=== PATIENT | male | born 1950 | race Caucasian/White ===

== ENCOUNTER 2019-12-18 10:04 | Inpatient (IN) | payer MEDICARE, OTHER, SELFPAY ==
[2019-12-18] VITALS (30 sets, daily range): BP systolic 64–127; BP diastolic 34–60; PULSE 73–119; RESP 12–24; TEMP 36–37.4; O2SAT 94–100; BMI 29.0
--- NOTE | ~2019-12-18 | CT_ITS ---
EXAMINATION: CT abdomen pelvis w con DATE: 12/18/2019 11:24 INDICATION: Gastrointestinal bleed. Leukocytosis. TECHNIQUE: Computed tomography (CT) of the abdomen and pelvis was performed with 100 mL Omnipaque-350 intravenous contrast. Automated exposure control and iterative reconstruction technique were employe d. The dose-length product was 502.28 mGy-cm. COMPARISON: 02/20/2019 FINDINGS: Linear discoid atelectasis/scarring at the lingula. Multiple pulmonary nodules clustered in the right middle lobe with distribution favoring an infectious/inflammatory etiology. There are few additional pulmonary nodules at the periphery of the bilateral lower lobes largest a 6 mm nodule in the left lo wer lobe. Heart size is normal. No pericardial or pleural effusion. Bilateral gynecomastia. There are few small calcifications in the liver and spleen consistent with old granulomatous disease. Signific ant interval decrease in size of a now 2.9 cm lesion in the spleen. Additional small region of more b andlike scarring at the cephalad aspect of the spleen the site of a prior cystic mass. Gallbladder, p ancreas, left adrenal gland and bilateral kidneys are normal. Unchanged 1.4 cm right adrenal nodule. Appendix is normal. Bladder is normal. Calcification within the otherwise unremarkable prostate. Ther e is wall thickening and mild inflammatory stranding along the proximal sigmoid colon. There are few scattered diverticula along the descending and sigmoid colon. No abscess or free intraperineal gas. N o pathologically enlarged abdominal or pelvic lymphadenopathy. Moderate to severe thoracolumbar spon dylosis. IMPRESSION: 1. Wall thickening and inflammatory stranding along the proximal sigmoid colon likely related to dive rticulitis. Differential would include focal colitis or malignancy would recommend colonoscopy for fu rther evaluation when clinically improved. 2. Decrease in size of a now 2.9 cm splenic lesion which based upon further imaging is most likely re lated to treated metastatic disease. Correlate with clinical history. 3. Multiple subcentimeter pulmonary nodules in the bilateral lower lungs which could be infectious, i nflammatory or metastatic in etiology. The prominent localized clustering of nodules in the right mid dle lobe would favor an infectious etiology. 4. Unchanged indeterminate 1.4 cm adrenal nodule statistically most likely to represent an adenoma al though differential would include metastatic disease. Reviewed, dictated and finalized at location A. IMPRESSION: 1. Wall thickening and inflammatory stranding along the proximal sigmoid colon likely related to diverticulitis. Differential would include focal colitis or m alignancy would recommend colonoscopy for further evaluation when clinically im proved. 2. Decrease in size of a now 2.9 cm splenic lesion which based upon further geovanni ging is most likely related to treated metastatic disease. Correlate with clini suma history. 3. Multiple subcentimeter pulmonary nodules in the bilateral lower lungs which could be infectious, inflammatory or metastatic in etiology. The prominent loca lized clustering of nodules in the right middle lobe would favor an infectious etiology. 4. Unchanged indeterminate 1.4 cm adrenal nodule statistically most likely to r epresent an adenoma although differential would include metastatic disease.
--- NOTE | 2019-12-18 10:08 | ED.GIBLEED ---
HPI - GI Bleed General Chief complaint: GI Bleed Stated complaint: black, tarry stools Time Seen by Provider: 12/18/19 10:07 History of Present Illness HPI Narrative: 69 yo male with h/o prostate cancer, non-Hodgkin's lymphoma, hypertension, GERD, and history of colon polyps and hemorrhoids c/o dizziness, weakness, and dark stools. About 5 days ago began passing 2 to 3 dark stools per day. He also reports 1 episode of hematemesis. For the past 2 days he has become progressively more weak, and today had asyncopal episode, falling back into the bed. Related Data Home Medications Medication Instructions Recorded Confirmed acyclovir 400 mg PO BID 12/18/19 12/18/19 amlodipine 5 mg PO DAILY 12/18/19 12/18/19 aspirin 81 mg PO DAILY 12/18/19 12/18/19 cholecalciferol (vitamin D3) 50 mcg PO DAILY 12/18/19 12/18/19 folic acid 1 mg PO DAILY 12/18/19 12/18/19 atorvastatin 20 mg PO DAILY 12/20/19 12/20/19 Allergies Allergy/AdvReac Type Severity Reaction Status Date / Time rosuvastatin Allergy Intermediate IRRITABLE Verified 12/19/19 15:52 simvastatin Allergy Intermediate IRRITABLE Verified 12/19/19 15:52 pravastatin Allergy Mild IRRITABLE Verified 12/19/19 15:52 Review of Systems Review of Systems: All systems reviewed & are unremarkable except as noted in HPI and below Constitutional: Constitutional: Denies fever(s) and Reports weakness Cardiovascular: Cardiovascular: Denies chest pain Respiratory: Respiratory: Denies dyspnea Gastrointestinal: Gastrointestinal: Denies abdominal pain, Reports constipation, Reports diarrhea, Reports nausea and Reports vomiting Genitourinary: Genitourinary: Denies hematuria Neurologic: Reports syncope and Reports weakness [facility] Past Medical History Medical History Colon polyps Essential hypertension Gastroesophageal reflux disease Hemorrhoids Hyperlipidemia Non-Hodgkin lymphoma (~05/2019) Prostate cancer (~2009) He received 38 treatments of external beam radiation. Surgical History Surgical History (Updated 12/18/19 @ 20:07 by Tameka Kate PA-C) No history of previous surgery Family History Family History Mother Congestive heart failure Sibling Malignant neoplasm of colon Sibling Malignant neoplasm of breast (female) Hodgkin lymphoma Sibling Malignant lung neoplasm Social History Social History Social History: The patient lives in [place] with his . He is retired from [employer]. He was in the [employer] for 2 years as a young man and previously got his care at the [facility]. He is now a patient of Dr. Kanu Garcia. He smoked 1/2 packs of cigarettes per day for about 40 years. He denies alcohol and drug abuse. He designates his , Ct, as his surrogate decision maker and he wishes to be a full code. Smoking packs per day: 1.5 Smoking cigarettes per day: 30.0 Years smoked: 40 Smoking pack-years: 60.00 Smoking status: Former smoker Tobacco type: cigarettes Second hand tobacco smoke exposure: No Alcohol intake: former Substance use: never Gender identity (if verbalized by the patient): Male Spiritual care concerns: No Exam Const: General: alert Orientation/consciousness: patient oriented x3 HENMT: Head: normal to inspection Resp: Effort & Inspection: normal respiratory effort Auscultation: clear to auscultation bilaterally Cardio: Rate: tachycardic Rhythm: regular rhythm GI: GI Palp: Yes Soft to palpation and No Tenderness to palpation present (GI) Skin: General skin exam: pallor Neuro: General: patient oriented x3, moves all extremities and CN's II-XI intact bilaterally Speech: normal speech Extrem: General: normal to inspection Psych: Mental Status: mental status grossly normal Course Vital Signs Vital signs: Vital Signs
[2019-12-18] MEDS: SODIUM CHLORIDE 0.9% IV 1,000 ML 999 ML IV CONT (10:27)
[2019-12-18 10:30] LABS: Basophils Absolute Auto 0.1 K/mm3 (0.0-0.1); Basophils Percent Auto 0.3 % (0.2-1.2); Eosinophils Percent Auto 0.2 % (0-4.4); Immature Granulocyte Absolute 0.78 K/mm3 (0.00-0.031); Immature Granulocyte Percent A 4.1 % (0-0.5); Lymphocytes Absolute Auto 1.67 K/mm3 (0.9-3.2); Lymphocytes Percent Auto 8.7 % (18.3-44.2); Mean Corpuscular HGB Conc 30.2 g/dl (32-36); Mean Corpuscular Hemoglobin 27.3 pg (26-34); Mean Corpuscular Volume 90.4 fl (80-100); Mean Platelet Volume 9.8 fl (7.4-10.4); Monocytes Absolute Auto 1.4 K/mm3 (0.1-0.6); Monocytes Percent Auto 7.5 % (2.6-8.5); Neutrophils Absolute Auto 15.2 K/mm3 (1.3-6.7); Neutrophils Percent Auto 79.2 % (45.5-73.1); Nucleated Red Blood Cells Absolute Auto 0.1 K/mm3 (0.0-0.012); Nucleated Red Blood Cells Perc 0.7 % (0.0-0.2); Platelet Count Result 421 k/mm3 (150-375); Red Blood Count 1.87 M/mm3 (4.6-6.20); Red Cell Distribution Width 16.3 % (11.5-14.5); White Blood Count 19.2 K/mm3 (4.5-10.0)
[2019-12-18] MEDS: PANTOPRAZOLE SODIUM IV 40 MG VIAL IV PUSH ×2 (10:31→21:18)
[2019-12-18 10:41] LABS: Alanine Aminotransferase 11 U/L (4-50); Albumin Level 3.3 g/dL (3.5-5.1); Alkaline Phosphatase 59 U/L (38-126); Aspartate Amino Transferase 19 U/L (17-59); Bilirubin,Total 0.3 mg/dL (0.2-1.3); Blood Urea Nitrogen 31 mg/dL (9-20); Calcium 8.4 mg/dL (8.4-10.2); Carbon Dioxide 25 mmol/L (22-30); Chloride 102 mmol/L (98-107); Estimated Glomerular Filt Rate > 60; Glucose 122 mg/dL (75-110); Potassium 3.8 mmol/L (3.4-5.0); Sodium 133 mmol/L (137-145)
[2019-12-18 10:44] LABS: Hematocrit 16.9 % (42.0-52.0); Hemoglobin 5.1 g/dL (14.0-18.0); INR 1.1; Prothrombin Time 13.9 Seconds (11.1-14.7)
[2019-12-18 10:45] LABS: Partial Thromboplastin Time 22.6 SECONDS (22.3-36.8)
[2019-12-18] MEDS: SODIUM CHLORIDE 0.9% IV 250 ML 30 ML IV CONT ×2 (12:35→20:14)
[2019-12-18] MEDS: TUBING, BLOOD PLUM PUMP TUBING 1 EACH XX ×3 (12:35→21:19)
--- NOTE | 2019-12-18 13:58 | ADMGEN ---
This patient, Michael Barrios, was admitted to IMU Room 201-01 on 12/18/2019 at 1358. Patient/family oriented to hospital policies and general routines including ID bracelet, bed and alarms, visiting hours, pain management, procedures, bathroom and other care routines, personal items, smoking policy, room service/diet, and visiting hours. Valuables list has been completed. Information on how to activate the Rapid Response Team has been discussed. Patient/Family are encouraged to report perceived risks to care and to ask questions if they do not understand what they are told or what they should do.
--- NOTE | 2019-12-18 16:00 | PM.IMHP ---
H&P: HPI History of Present Illness Chief complaint: Dizziness, weakness, dark stools. Narrative: Michael aBrrios is a 69-year-old male with history of prostate cancer status post radiation therapy in 2009, non-Hodgkin's lymphoma for which he completed chemotherapy in June 2019, hypertension, GERD, and history of colon polyps and hemorrhoids who presented to the emergency department earlier today for evaluation of dizziness, weakness, and dark stools. Approximately 5 days ago, he began passing formed, dark stools daily. The first day, he did have an upset stomach and reports having 1 episode of hematemesis. He has continued to have 2 to 3 dark stools per day, however has not had a bowel movement today. In fact, he thought he was constipated with reports of tenesmus, and did take Dulcolax x1 without help. For the past day and a half he has become progressively more weak, and tells me that when he got up early this morning to use the restroom that he felt extremely lightheaded/dizzy and he proceeded to have syncopal episode, falling back into the bed. He was really unable to get himself up this morning due to profound weakness and was brought in for evaluation. He was profoundly anemic with a hemoglobin of 5.1 and 16.9 respectively. He feels a bit better at the time my evaluation and is currently receiving his 2nd unit of blood. He does take a baby aspirin daily but denies NSAID use. He drinks 2 cups of coffee a day and maybe has 1 or 2 alcoholic beverages every couple of weeks. No recent change in stress. Interestingly, he has really not had symptoms of GERD or acid reflux. He did try some Mylanta 5 days ago when he was nauseated, but reports that it did not help. With further questioning, he did take omeprazole for approximately 6 months at the instruction of his oncologist will receiving chemotherapy. He stop taking that sometime within the last several weeks. He has a history of hemorrhoids and colon polyps, and in fact had a colonoscopy within the last several months done at [place]. At that time, he tells me that they saw ?a lot of scarring from previous diverticulitis.? Currently he denies chest pain, racing heart, and shortness of breath. No abdominal pain or nausea at this time. Review of Systems Review of Systems: Narrative: 12 systems were reviewed and are negative. He lost about 50 pounds since being diagnosed with non-Hodgkin lymphoma last fall, but weight is now stabilized. He denies fever, chills, and sweats. No cold or flu symptoms. He does occasionally have mild rhinorrhea. He denies shortness of breath and cough. No sick contacts or recent travel. Except as documented, all other systems were reviewed and are negative. [facility] Past Medical History Medical History (Updated 12/18/19 @ 20:01 by Tameka Kate PA-C) Colon polyps Essential hypertension Gastroesophageal reflux disease Hemorrhoids Hyperlipidemia Non-Hodgkin lymphoma (~05/2019) Prostate cancer (~2009) He received 38 treatments of external beam radiation. Surgical History Surgical History (Updated 12/18/19 @ 20:07 by Tameka Kate PA-C) No history of previous surgery Family History Family History Mother Congestive heart failure Sibling Malignant neoplasm of colon Sibling Malignant neoplasm of breast (female) Hodgkin lymphoma Sibling Malignant lung neoplasm Social History Social History (Updated 12/18/19 @ 19:59 by Tameka Kate PA-C) Social History: The patient lives in [place] with his . He is retired from [employer] He was in the [employer] for 2 years as a young man and previously got his care at the [facility]. He is now a patient of Dr. Kanu Garcia. He smoked 1/2 packs of cigarettes per day for about 40 years. He denies alcohol and drug abuse. He designates his , Ct, as his surrogate decision maker and he wishes to be a full code. Afshan
[2019-12-18 16:25] LABS: Hemoglobin 5.2 g/dL (14.0-18.0)
[2019-12-18 16:26] LABS: Hematocrit 16.4 % (42.0-52.0)
[2019-12-18] MEDS: LACTATED RINGERS 1,000 ML 125 ML IV CONT (23:08)
[2019-12-19] VITALS (19 sets, daily range): BP systolic 86–111; BP diastolic 40–64; PULSE 63–82; RESP 14–20; TEMP 35.7–37; O2SAT 96–100
[2019-12-19 00:04] LABS: Hematocrit 23.4 % (42.0-52.0); Hemoglobin 7.3 g/dL (14.0-18.0)
[2019-12-19] MEDS: SODIUM CHLORIDE 0.9% IV 250 ML 30 ML IV CONT (00:45)
[2019-12-19 05:16] LABS: Basophils Percent Auto 0.4 % (0.2-1.2); Eosinophils Absolute Auto 0.1 K/mm3 (0-0.3); Eosinophils Percent Auto 0.8 % (0-4.4); Hematocrit 26.4 % (42.0-52.0); Hemoglobin 8.5 g/dL (14.0-18.0); Immature Granulocyte Absolute 0.22 K/mm3 (0.00-0.031); Immature Granulocyte Percent A 2.1 % (0-0.5); Lymphocytes Percent Auto 8.7 % (18.3-44.2); Mean Corpuscular HGB Conc 32.2 g/dl (32-36); Mean Corpuscular Volume 86.8 fl (80-100); Mean Platelet Volume 9.7 fl (7.4-10.4); Monocytes Absolute Auto 0.9 K/mm3 (0.1-0.6); Monocytes Percent Auto 8.9 % (2.6-8.5); Neutrophils Absolute Auto 8.2 K/mm3 (1.3-6.7); Neutrophils Percent Auto 79.1 % (45.5-73.1); Nucleated Red Blood Cells Absolute Auto 0.1 K/mm3 (0.0-0.012); Nucleated Red Blood Cells Perc 0.6 % (0.0-0.2); Platelet Count Result 213 k/mm3 (150-375); Red Blood Count 3.04 M/mm3 (4.6-6.20); Red Cell Distribution Width 16.1 % (11.5-14.5); White Blood Count 10.4 K/mm3 (4.5-10.0)
[2019-12-19 05:25] LABS: Prothrombin Time 13.2 Seconds (11.1-14.7)
[2019-12-19 05:37] LABS: Alanine Aminotransferase 7 U/L (4-50); Albumin Level 2.7 g/dL (3.5-5.1); Alkaline Phosphatase 43 U/L (38-126); Aspartate Amino Transferase 14 U/L (17-59); Bilirubin,Total 0.5 mg/dL (0.2-1.3); Blood Urea Nitrogen 17 mg/dL (9-20); Carbon Dioxide 27 mmol/L (22-30); Chloride 107 mmol/L (98-107); Estimated CRCL calculation 63 ml/min; Estimated Glomerular Filt Rate > 60; Glucose 87 mg/dL (75-110); Magnesium 2.3 mg/dL (1.6-2.3); Potassium 4.5 mmol/L (3.4-5.0); Sodium 136 mmol/L (137-145)
[2019-12-19] MEDS: PANTOPRAZOLE SODIUM IV 40 MG VIAL IV PUSH ×2 (08:33→21:47)
[2019-12-19] MEDS: LACTATED RINGERS 1,000 ML 125 ML IV CONT ×2 (10:23→18:44)
[2019-12-19 12:04] LABS: Hematocrit 26.2 % (42.0-52.0); Hemoglobin 8.4 g/dL (14.0-18.0)
--- NOTE | 2019-12-19 15:09 | WPDANESEPPF ---
Anes - Initial Pre Proc Eval Date/Time: 12/19/19 15:09 Surgeon: Paulino Vasques MD Pre Op Diagnosis: Dizziness, weakness, dark stools. Patient Data Age: 69 Gender: M Height: 1.68 m Weight: 81.8 kg Last Vital Signs Temp 35.7 C L 12/19/19 12:00 Pulse 68 12/19/19 12:00 Resp 20 12/19/19 12:00 BP 105/61 12/19/19 12:00 Pulse Ox 100 12/19/19 12:00 Allergies Allergy/AdvReac Type Severity Reaction Status Date / Time rosuvastatin Allergy Intermediate IRRITABLE Verified 12/19/19 15:52 simvastatin Allergy Intermediate IRRITABLE Verified 12/19/19 15:52 pravastatin Allergy Mild IRRITABLE Verified 12/19/19 15:52 Home Medications Medication Instructions Recorded Confirmed Type acyclovir 400 mg PO BID 12/18/19 12/18/19 History amlodipine 5 mg PO DAILY 12/18/19 12/18/19 History aspirin 81 mg PO DAILY 12/18/19 12/18/19 History atorvastatin 40 mg PO DAILY 12/18/19 12/18/19 History cholecalciferol (vitamin D3) 50 mcg PO DAILY 12/18/19 12/18/19 History folic acid 1 mg PO DAILY 12/18/19 12/18/19 History Laboratory Tests 12/18/19 12/18/19 12/18/19 10:21 16:15 23:55 WBC RBC Hgb 5.2 g/dL L* g/dL 7.3 g/dL L g/dL (14.0-18.0) (14.0-18.0) Hct 16.4 % L* % 23.4 % L % (42.0-52.0) (42.0-52.0) MCV MCH MCHC RDW Plt Count MPV Immature Gran % (Auto) Neut % (Auto) Lymph % (Auto) [place] % (Auto) Eos % (Auto) Baso % (Auto) Lymph # (Auto) [place] # (Auto) Eos # (Auto) Baso # (Auto) Abs Immat Gran (auto) Absolute Neuts (auto) Absolute Nucleated RBC Nucleated RBC % PT INR APTT Sodium Potassium Chloride Carbon Dioxide BUN Creatinine Estim Creat Clear Calc Estimated GFR Glucose Calcium Magnesium Total Bilirubin AST ALT Alkaline Phosphatase Total Protein Albumin Blood Type O Positive Antibody Screen Negative Crossmatch See Detail 12/19/19 12/19/19 12/19/19 04:34 04:34 04:34 WBC 10.4 K/mm3 H K/mm3 (4.5-10.0) RBC 3.04 M/mm3 L M/mm3 (4.6-6.20) Hgb 8.5 g/dL L g/dL (14.0-18.0) Hct 26.4 % L % (42.0-52.0) MCV 86.8 fl fl (80-100) MCH 28.0 pg pg (26-34) MCHC 32.2 g/dl g/dl (32-36) RDW 16.1 % H % (11.5-14.5) Plt Count 213 k/mm3 k/mm3 (150-375) MPV 9.7 fl fl (7.4-10.4) Immature Gran % (Auto) 2.1 % H % (0-0.5) Neut % (Auto) 79.1 % H % (45.5-73.1) Lymph % (Auto) 8.7 % L % (18.3-44.2) [place] % (Auto) 8.9 % H % (2.6-8.5) Eos % (Auto) 0.8 % % (0-4.4) Baso % (Auto) 0.4 % % (0.2-1.2) Lymph # (Auto) 0.90 K/mm3 K/mm3 (0.9-3.2) [place] # (Auto) 0.9 K/mm3 H K/mm3 (0.1-0.6) Eos # (Auto) 0.1 K/mm3 K/mm3 (0-0.3) Baso # (Auto) 0.0 K/mm3 K/mm3 (0.0-0.1) Abs Immat Gran (auto) 0.22 K/mm3 H K/mm3 (0.00-0.031) Absolute Neuts (auto) 8.2 K/mm3 H K/mm3 (1.3-6.7) Absolute Nucleated RBC 0.1 K/mm3 H K/mm3 (0.0-0.012) Nucleated RBC % 0.6 % H % (0.0-0.2) PT 13.2 Seconds Seconds (11.1-14.7) INR 1.0 APTT 24.0 SECONDS SECONDS (22.3-36.8) Sodium 136 mmol/L L mmol/L (137-145) Potassium 4.5 mmol/L mmol/L (3.4-5.0) Chloride 107 mmol/L mmol/L (98-107) Carbon Dioxide 27 mmol/L mmol/L (22-30) BUN 17 mg/dL D mg/dL (9-20) Creatinine
--- NOTE | 2019-12-19 15:55 | PC.NURSE ---
Patient left floor to GI Lab at 1555 on 12/19/2019 for an EGD Procedure. Appropriate documentation sent with patient.
[2019-12-19] MEDS: LACTATED RINGERS 1,000 ML 150 ML IV CONT ×2 (16:02→16:13)
--- NOTE | 2019-12-19 16:08 | PC.NURSE ---
This patient, Michael Barrios, was transferred to [facility] on 12/19/19 at 1605. Personal belongings sent to room waiting while patient is in EGD Procedure. Report given to Justyna ASH. Appropriate documentation sent with patient.
--- NOTE | 2019-12-19 16:22 | PM.PROC ---
Procedure Note - Detailed Date of procedure: 12/19/19 Pre-op diagnosis: Dizziness, weakness, dark stools. GERD; acute blood loss anemia; hematemesis, melena. Post-op diagnosis: other (Normal EGD.) Procedure performed: EGD Anesthesia: MAC Surgeon: Partha Washington MD Estimated blood loss (mL): 0 Pathology: none sent Complications: No immediate complications Condition: stable Disposition: floor Findings: PARTHA WASHINGTON MD, FACG, FACP UPPER ENDOSCOPY 12-19-2019 INDICATION: Acute blood loss anemia, hematemesis, melena. GERD. POST-OP: Normal. SEDATION: Per anesthesia With the patient in the left lateral decubitus position, the [employer] upper endoscope was used to easily intubate the patient?s esophagus and advanced to the third portion of the duodenum to the extreme extent of the endoscope. Careful inspection of the mucosa was made upon insertion and withdrawal of the endoscope with retroflexion in the stomach. FINDINGS: Esophagus: SC Jx at 35 cm. Esophagus is normal. No varix, tear, esophagitis, stricture, mass or Majano?s. Stomach: Fundus, body and antrum normal. No ulceration, erosion, inflammation, AVM or malignancy. Duodenum: Normal in the bulb, second and third portion. No complications, blood loss or implants. No old or new blood. ASSESSMENT AND PLAN: A. GERD: stable on PPI; continue at BID for one month then daily. No esophagitis or Majano?s. B. Acute blood loss anemia, hematemesis, melena on aspirin: - Most likely related to Marci-Robbin tear that has healed - No active bleed - Follow H+H; transfuse prn - If further bleed consider Capsule endoscopy - Avoid aspirin, NSAIDS and anticoagulants for two weeks - Increase diet; hopefully home soon Partha Washington M.D. [phone]
--- NOTE | 2019-12-19 17:09 | CONS_ITS ---
DATE OF CONSULTATION: 12/19/2019 HISTORY OF PRESENT ILLNESS: A 69-year-old male with history of prostate cancer, status post radiation in 2009, non-Hodgkin's lymphoma, finishing chemo in June 2019, hypertension, hyperlipidemia, GERD, history of colon polyps, who presented yesterday with hematemesis for 5 days, associated with melena and lightheadedness. I am now asked to provide GI evaluation at the request of the hospitalist service for same symptoms. Primary care provider is Dr. Kanu Garcia. The patient has symptoms as above and otherwise denies abdominal pain, nausea, vomiting, heartburn, trouble swallowing, loss of appetite or weight, hematochezia, previous melena, fever, jaundice, scleral icterus, dark urine, light stools, itching, hot or cold intolerance, chest pain, shortness of breath at rest, hematuria, dysuria, new cough or visual changes, easy bruising, tingling of the skin, bone pain or tremors. No endocarditis risk factors. ALLERGIES: ROSUVASTATIN, SIMVASTATIN, AND PRAVASTATIN. MEDICATIONS: Include: 1. Baby aspirin. 2. No NSAIDs or anticoagulants. 3. Acyclovir. 4. Amlodipine. 5. Atorvastatin. 6. Vitamin D. 7. Folate. SOCIAL HISTORY: Nonsmoker. Nondrinker. FAMILY HISTORY: Brother with colon cancer. The patient had a colonoscopy a few months ago at [facility] with scarring and diverticular disease as well as colon polyps removed. I do not have the report or pathology for this. PHYSICAL EXAMINATION: GENERAL: Well-developed, well-nourished male lying in bed, in no apparent distress. He has no lower extremity edema, jaundice, spider angioma, palmar erythema. HEENT: Skull is normocephalic, atraumatic. Pupils nonicteric. Oropharynx clear. NECK: Supple without thyromegaly. LUNGS: Clear to auscultation. HEART: Rate and rhythm regular. S1, S2 normal. ABDOMEN: Normoactive bowel sounds. Soft, nontender, nonrigid, nondistended without hepatosplenomegaly or masses. RECTAL: Deferred. NEUROLOGIC: Conscious and alert x3. LABORATORY DATA: Today hemoglobin 9, hematocrit 26, white count of 10, MCV 87, T bilirubin 0.5, alkaline phosphatase 43, AST 14, ALT is 7. On December 17, hematocrit 16, white count 19. INR is 1.1. IMAGING PROCEDURE: CT scan of the abdomen and pelvis done December 17 shows sigmoid colon inflammatory stranding and wall thickening. 3 cm splenic lesion and pulmonary nodules. ASSESSMENT AND PLAN: 1. Gastroesophageal reflux disease. Continue PPI. 2. Acute blood loss anemia with melena. Certainly concern for upper GI source more than lower GI source of bleeding. No active bleeding at this time. We will follow H and H, transfuse as needed. Avoid aspirin, nonsteroidals and anticoagulants. Continue PPI. Perform upper endoscopy. 3. Abnormal imaging of the digestive tract. I do not believe, patient has any evidence of acute diverticulitis. This most likely represents underfilling and will take observational approach. We will leave further recommendations regarding splenic lesion and pulmonary nodules to others. 4. Personal history of colon polyps and family history of colon cancer. We will leave followup to Dr. Kanu Garcia as outpatient, as patient has had endoscopy at [facility]. 5. The procedure of upper endoscopy, its indications, alternatives of barium studies, and risks including perforation, bleeding, infection, reaction to medication as well as possible need for bladder surgery were reviewed with the patient. He voices understanding and agrees to proceed and provided informed consent. Thank you for allowing me to share in the care of this very nice patient. Further recommendations will follow endoscopy. AARON ARRIAGA M.D.
[2019-12-19 18:11] LABS: Hematocrit 28.3 % (42.0-52.0); Hemoglobin 9.1 g/dL (14.0-18.0)
--- NOTE | 2019-12-19 18:15 | PM.IMPN ---
Progress Note: A&P Assessment and Plan (1) Upper GI bleed: Code(s): K92.2 - Gastrointestinal hemorrhage, unspecified Status: Acute Assessment and Plan: With hematemesis x1 approximately 5 days ago and several days worth of dark stools. No vomiting or bowel movement today. He has been started on Protonix b.i.d. Dr. Washington consulted, input appreciated. 12/19/19 18:15 Patient is a 69-year-old male with history of prostate cancer non-Hodgkin lymphoma presented emergency department with a complaint being dizzy tired and black tarry stool upon arrival to emergency department patient hemoglobin was 5.1, he denies any abdominal pain nausea or vomiting or hematoma emesis he denies any fever or chills, patient was given 2 units of pack RBC today his hemoglobin is 8.3, patient had a CT scan of abdomen showed diverticulitis patient is started on Zosyn, patient was seen by GI and had a EGD today which was essentially normal without any source of bleeding plan is to monitor, GI suspect patient may have a small-bowel bleeding and may required capsule endoscopy, (2) Profound anemia: Code(s): D64.9 - Anemia, unspecified Status: Acute Assessment and Plan: Secondary to GI bleed. Will initially give him 3 units of packed red blood cells and repeat a hemoglobin and hematocrit thereafter. (3) Syncopal episodes: Code(s): R55 - Syncope and collapse Status: Acute Assessment and Plan: Likely secondary to orthostatic hypotension from hypovolemia due to blood loss. Will monitor on telemetry overnight to ensure no cardiac dysrhythmias. (4) Diverticulitis: Code(s): K57.92 - Diverticulitis of intestine, part unspecified, without perforation or abscess without bleeding Status: Acute Assessment and Plan: He did have tenderness to palpation left lower quadrant and given leukocytosis and CT findings, will empirically start him on Zosyn. (5) Essential hypertension: Code(s): I10 - Essential (primary) hypertension Status: Acute Assessment and Plan: Blood pressures were as low as 64/41 in the emergency department, but have improved with blood transfusion. Antihypertensives currently on hold. Subjective Date/time seen: 12/19/19 18:15 Patient is a 69-year-old male with history of prostate cancer non-Hodgkin lymphoma presented emergency department with a complaint being dizzy tired and black tarry stool upon arrival to emergency department patient hemoglobin was 5.1, he denies any abdominal pain nausea or vomiting or hematoma emesis he denies any fever or chills, patient was given 2 units of pack RBC today his hemoglobin is 8.3, patient had a CT scan of abdomen showed diverticulitis patient is started on Zosyn, patient was seen by GI and had a EGD today which was essentially normal without any source of bleeding plan is to monitor, GI suspect patient may have a small-bowel bleeding and may required capsule endoscopy, Review of Systems Review of Systems: All systems reviewed & are unremarkable except as noted in HPI and below Exam Const: General: comfortable and no acute distress HENMT: General nose exam: Normal nares present Mouth: Yes moist mucous membranes Eyes: General: appearance normal, both eyes and all related structures Sclera: sclerae normal Neck: Neck: supple Resp: Effort & Inspection: normal respiratory effort Auscultation: clear to auscultation bilaterally Cardio: Rate: regular rate Rhythm: regular rhythm GI: Auscultation: normal bowel sounds Other: Nontender Skin: General skin exam: normal color Neuro: Speech: normal speech Sensory Exam: normal sensation Extrem: General: no
[2019-12-19] MEDS: ACYCLOVIR 400 MG TABLET PO (18:42)
[2019-12-20 00:56] LABS: Hematocrit 23.9 % (42.0-52.0); Hemoglobin 7.6 g/dL (14.0-18.0)
[2019-12-20] MEDS: LACTATED RINGERS 1,000 ML 125 ML IV CONT (04:30)
[2019-12-20 05:40] VITALS: BP 118/58; PULSE 82; RESP 16; TEMP 36.1; O2SAT 96
[2019-12-20 06:09] LABS: Mean Corpuscular Hemoglobin 27.8 pg (26-34); Mean Corpuscular Volume 86.8 fl (80-100); Mean Platelet Volume 9.9 fl (7.4-10.4); Platelet Count Result 231 k/mm3 (150-375); Red Blood Count 2.88 M/mm3 (4.6-6.20); Red Cell Distribution Width 16.6 % (11.5-14.5); White Blood Count 7.5 K/mm3 (4.5-10.0)
[2019-12-20 06:33] LABS: Blood Urea Nitrogen 10 mg/dL (9-20); Calcium 8.3 mg/dL (8.4-10.2); Carbon Dioxide 28 mmol/L (22-30); Chloride 105 mmol/L (98-107); Estimated CRCL calculation 70 ml/min; Estimated Glomerular Filt Rate > 60; Glucose 82 mg/dL (75-110); Potassium 3.5 mmol/L (3.4-5.0); Sodium 135 mmol/L (137-145)
[2019-12-20] MEDS: ACYCLOVIR 400 MG TABLET PO (09:04)
[2019-12-20] MEDS: POTASSIUM CHLORIDE 20 MEQ TABLET 40 MEQ PO (09:04)
[2019-12-20] MEDS: AMLODIPINE BESYLATE 5 MG TABLET PO (09:05)
[2019-12-20] MEDS: FOLIC ACID 1 MG TABLET PO (09:05)
--- NOTE | 2019-12-20 10:19 | PC.NURSE ---
Patient refused Atorvastatin 40 mg po this a.m. and states he takes 20 mg po at home. Will discuss with Dr. Vasques. Patient also refused Vitamin D 2000 units, stating he takes 50 mcg daily at home. Will also discuss this with Dr. Vasques.
[2019-12-20] MEDS: PANTOPRAZOLE SODIUM IV 40 MG VIAL IV PUSH (10:38)
--- NOTE | 2019-12-20 11:11 | PM.DS ---
DS: Admitting Diagnosis Admitting Diagnosis Admitting Diagnosis: Gastrointestinal hemorrhage, unspecified DS: Discharge Diagnosis Discharge Diagnosis (1) Upper GI bleed: Code(s): K92.2 - Gastrointestinal hemorrhage, unspecified Status: Acute Assessment and Plan: With hematemesis x1 approximately 5 days ago and several days worth of dark stools. No vomiting or bowel movement today. He has been started on Protonix b.i.d. Dr. Washington consulted, input appreciated. 12/19/19 18:15 Patient is a 69-year-old male with history of prostate cancer non-Hodgkin lymphoma presented emergency department with a complaint being dizzy tired and black tarry stool upon arrival to emergency department patient hemoglobin was 5.1, he denies any abdominal pain nausea or vomiting or hematoma emesis he denies any fever or chills, patient was given 2 units of pack RBC today his hemoglobin is 8.3, patient had a CT scan of abdomen showed diverticulitis patient is started on Zosyn, patient was seen by GI and had a EGD today which was essentially normal without any source of bleeding plan is to monitor, GI suspect patient may have a small-bowel bleeding and may required capsule endoscopy, (2) Profound anemia: Code(s): D64.9 - Anemia, unspecified Status: Acute Assessment and Plan: Secondary to GI bleed. Will initially give him 3 units of packed red blood cells and repeat a hemoglobin and hematocrit thereafter. (3) Syncopal episodes: Code(s): R55 - Syncope and collapse Status: Acute Assessment and Plan: Likely secondary to orthostatic hypotension from hypovolemia due to blood loss. Will monitor on telemetry overnight to ensure no cardiac dysrhythmias. (4) Diverticulitis: Code(s): K57.92 - Diverticulitis of intestine, part unspecified, without perforation or abscess without bleeding Status: Acute Assessment and Plan: He did have tenderness to palpation left lower quadrant and given leukocytosis and CT findings, will empirically start him on Zosyn. (5) Essential hypertension: Code(s): I10 - Essential (primary) hypertension Status: Acute Assessment and Plan: Blood pressures were as low as 64/41 in the emergency department, but have improved with blood transfusion. Antihypertensives currently on hold. DS: Summary Hospital Course Reason for hospitalization: Michael Barrios is a 69-year-old male with history of prostate cancer status post radiation therapy in 2009, non-Hodgkin's lymphoma for which he completed chemotherapy in June 2019, hypertension, GERD, and history of colon polyps and hemorrhoids who presented to the emergency department earlier today for evaluation of dizziness, weakness, and dark stools. Approximately 5 days ago, he began passing formed, dark stools daily. The first day, he did have an upset stomach and reports having 1 episode of hematemesis. He has continued to have 2 to 3 dark stools per day, however has not had a bowel movement today. In fact, he thought he was constipated with reports of tenesmus, and did take Dulcolax x1 without help. For the past day and a half he has become progressively more weak, and tells me that when he got up early this morning to use the restroom that he felt extremely lightheaded/dizzy and he proceeded to have syncopal episode, falling back into the bed. He was really unable to get himself up this morning due to profound weakness and was brought in for evaluation. He was profoundly anemic with a hemoglobin of 5.1 and 16.9 respectively. He feels a bit better at the time my evaluation and is currently receiving his 2nd unit of blood. He does take a baby a
--- NOTE | 2019-12-20 11:50 | WPDANESPN ---
Anes - Prog Note Post-Op Date/Time: 12/20/19 11:50 Cardiovascular status: normal Respiratory status: normal Airway patency: baseline Mental status: baseline Post-Op hydration status: normal Vital Signs: Last Vital Signs Temp 36.1 C L 12/20/19 05:40 Pulse 82 12/20/19 05:40 Resp 16 12/20/19 05:40 BP 118/58 L 12/20/19 05:40 Pulse Ox 96 12/20/19 05:40 Pain Score (VAS): 0/10. Patient resting up to chair at time of assessment, patient appears comfortable. I/O: Intake & Output 12/19/19 12/20/19 12/20/19 23:59 07:59 15:59 Intake Total 2300 1100 120 Output Total 200 Balance 2100 1100 120 Laboratory Tests 12/20/19 04:49 12/20/19 04:49 12/19/19 12/19/19 12/20/19 11:52 18:06 00:14 WBC RBC Hgb 8.4 L 9.1 L 7.6 L Hct 26.2 L 28.3 L 23.9 L MCV MCH MCHC RDW Plt Count MPV Sodium Potassium Chloride Carbon Dioxide BUN Creatinine Estim Creat Clear Calc Estimated GFR Glucose Calcium 12/20/19 12/20/19 04:49 04:49 WBC 7.5 RBC 2.88 L Hgb 8.0 L Hct 25.0 L MCV 86.8 MCH 27.8 MCHC 32.0 RDW 16.6 H Plt Count 231 MPV 9.9 Sodium 135 L Potassium 3.5 Chloride 105 Carbon Dioxide 28 BUN 10 D Creatinine 0.80 Estim Creat Clear Calc 70 Estimated GFR > 60 Glucose 82 Calcium 8.3 L Post-procedural complaints: none Patient Feedback: Patient satisfied with anesthetic care.
== END 2019-12-20 12:40 | disposition home or self-care (01) | DRG 378 ==
LOC: ANHED 10:35 → ANHIMU 12:59 → ANH2MED 12-19 17:48
PROVIDERS: Internal Medicine Gastroenterology; Physician Assistant; Admitting Provider Family Medicine; Emergency Provider Emergency Medicine; PCP Internal Medicine; Visit Provider Family Medicine
PROC: 0DJ08ZZ Inspection of Upper Intestinal Tract, Via Natural or Artificial Opening Endoscopic (ICD-10-PCS; CPT 43235; principal; 2019-12-19 15:45)
DX: K92.2 Gastrointestinal hemorrhage, unspecified (principal); D62 Acute posthemorrhagic anemia; K57.32 Diverticulitis of large intestine without perforation or abscess without bleeding; K21.9 Gastro-esophageal reflux disease without esophagitis; I95.1 Orthostatic hypotension; I10 Essential (primary) hypertension; E78.5 Hyperlipidemia, unspecified; Z87.891 Personal history of nicotine dependence; Z85.46 Personal history of malignant neoplasm of prostate; Z85.72 Personal history of non-Hodgkin lymphomas
CPT/HCPCS: 36415; 36430; 74177; 80048; 80053; 83735; 85014; 85018; 85025; 85027; 85610; 85730; 86850; 86900; 86901; 86923; 96361; 96365; 96375; 99285; A9270; C9113; J2543; J2704; J7030; J7050; J7120; P9016; Q9967

== ENCOUNTER 2024-06-12 15:35 | Emergency (ER) | payer MEDICARE, SELFPAY ==
--- NOTE | ~2024-06-12 | XR_ITS ---
[id number] DATE: 06/12/2024 15:59 INDICATION: Anterior upper right rib pain after fall TECHNIQUE: PA chest. 3 views of the right ribs. COMPARISON: None FINDINGS: No displaced rib fracture is noted. Normal heart size. No hilar or mediastinal enlargement. No pulmonary infiltrate or consolidation, ple ural effusion or pulmonary vascular congestion or pneumothorax is detected. Degenerative spurring of the thoracic spine. IMPRESSION: No displaced rib fracture is evident No active cardiopulmonary disease Reviewed, dictated and finalized at [facility] Reviewed, dictated and finalized at [facility] [employer] [employer]
[2024-06-12 15:50] VITALS: BP 139/70; PULSE 77; RESP 16; TEMP 36.6; O2SAT 98
--- NOTE | 2024-06-12 16:22 | ED_ITS ---
HPI - General Adult General Chief complaint: Fall Stated complaint: Chest Pain Time Seen by Provider: 06/12/24 15:50 Source: patient Mode of arrival: ambulatory Limitations: no limitations History of Present Illness HPI narrative: 74-year-old male presents with complaint of pain to right anterior ribs. Patient states around 2:00 p.m. today he slipped and fell while went to rising his boat. Slipped and hit right side of chest against a boat deck. Did not hit his head. Was able to get up on his own. Patient ambulatory with steady gait. Patient went to [facility] [facility] and was told they did not have x-ray machine. No shortness of breath. All systems reviewed and negative except as noted above. Related Data Home Medications Medication Instructions Recorded Confirmed amlodipine 5 mg tablet 5 mg PO DAILY 12/18/19 06/12/24 cholecalciferol (vitamin D3) 50 50 mcg PO DAILY 12/18/19 06/12/24 mcg (2,000 unit) capsule folic acid 1 mg tablet 1 mg PO DAILY 12/18/19 06/12/24 atorvastatin 10 mg tablet 10 mg PO DAILY 05/07/24 06/12/24 diclofenac potassium 25 mg capsule 25 mg PO DAILY 05/07/24 06/12/24 ferrous sulfate 324 mg (65 mg 324 mg PO DAILY 05/07/24 06/12/24 iron) tablet,delayed release hydroxychloroquine 200 mg tablet 200 mg PO DAILY 05/07/24 06/12/24 methotrexate sodium 2.5 mg tablet 15 mg PO WEEKLY 05/07/24 06/12/24 jpuuvizdhpch-ltwsxlun-kgjtub tablet 1 tablet PO DAILY 05/07/24 06/12/24 omeprazole 20 mg tablet,delayed 20 mg PO DAILY 05/07/24 06/12/24 release Allergies Allergy/AdvReac Type Severity Reaction Status Date / Time rosuvastatin Allergy Intermediate IRRITABLE Verified 06/12/24 15:42 simvastatin Allergy Intermediate IRRITABLE Verified 06/12/24 15:42 pravastatin Allergy Mild IRRITABLE Verified 06/12/24 15:42 Review of Systems Review of Systems: CONSTITUTIONAL: Denies fever, chills, or sweats. EYES: Denies visual changes, redness, or discharge. ENT: Denies rhinorrhea, congestion, sore throat, or otalgia. CARDIOVASCULAR: Denies chest pain, palpitations, or edema. RESPIRATORY: Denies cough or dyspnea. GASTROINTESTINAL: Denies abdominal pain, nausea, vomiting, or diarrhea. GENITOURINARY: Denies dysuria or hematuria. SKIN: Denies rash or itching. MUSCULOSKELETAL: Denies back pain, joint pain, or myalgia. Reports right-sided rib pain. NEUROLOGIC: Denies headache, numbness, or weakness. PSYCHIATRIC: Denies anxiety or depression. All other systems reviewed are negative, except as documented in HPI. [facility] Past Medical History Medical History Colon polyps Essential hypertension Gastroesophageal reflux disease Hemorrhoids Hyperlipidemia Non-Hodgkin lymphoma (~05/2019) Prostate cancer (~2009) He received 38 treatments of external beam radiation. Surgical History Surgical History History of cataract surgery Family History Family History Mother Congestive heart failure Sibling Malignant neoplasm of colon Sibling Malignant neoplasm of breast (female) Hodgkin lymphoma Sibling Malignant lung neoplasm Social History Social History Social History: The patient lives in [place] with his . He is retired from [employer]. He was in the [employer] for 2 years as a young man and [facility] He is now a patient of Dr. Kanu Garcia. He smoked 1/2 packs of cigarettes per day for about 40 years. He denies alcohol and drug abuse. He designates his , Ct, as his surrogate decision maker and he wishes to be a full code. Smoking packs per day: 1.5 Smoking cigarettes per day: 30.0 Years smoked: 40 Smoking pack-years: 60.00 Smoking status: Former smoker Tobacco type: cigarettes Second hand tobacco smoke exposure: No Alcohol intake: former Substance use: never Do You Feel Safe in your Home?: Yes Lack of Transportation: No Lack of Food: Never True Current Housing: I Do Not Have Housing Concerned About Future Housing: No Difficulty Paying Gas/Electric Bills: No Difficulty Paying for Meds: No Currently Unemployed: No Education: High School Diploma/GED Difficulty w/ Childcare or Family Care: No Gender identity (if verbalized by the patient): Male Spiritual care concerns: No Comments At time of signature, agree with nursing past medical, surgical, social and fami ly history. There is no relevant family history pertinent to the presenting complaint. Exam Narrative: GENERAL: This is a well-nourished, well-developed patient, in no apparent distress. HEAD: normocephalic, atraumatic. EYES: PERRL. Sclera clear/white. Vision is grossly intact. EARS: External ears normal NOSE: External nose normal NECK: Neck supple, non-tender without lymphadenopathy, masses or thyromegaly. CARDIOVASCULAR: Regular rate and rhythm without murmurs, gallops, or rubs. RESPIRATORY: Clear to auscultation. Breath sounds equal bilaterally. No wheezes, rales, or rhonchi. SKIN: warm, Dry, intact with no suspicious lesions or rash, good texture and turgor. NEURO: awake, alert, and oriented to person, place and time. There were no obvious focal neurologic abnormalities. EXTREMITIES: No joint tenderness, effusion, or edema noted. MUSCULOSKELETAL: tenderness to anterior aspect R chest/ribs 2nd, 3rd, 4th. no bruising, swelling or deformity noted Course Course Level of Care: Express Care Visit Vital Signs Vital signs: Vital Signs Temperature 36.6 C 06/12/24 15:50 Pulse Rate 77 06/12/24 15:50 Respiratory Rate 16 06/12/24 15:50 Blood Pressure 139/70 06/12/24 15:50 Pulse Oximetry 98 06/12/24 15:50 Temperature 36.6 C 06/12/24 15:50 Pulse Rate 77 06/12/24 15:50 Respiratory Rate 16 06/12/24 15:50 Blood Pressure 139/70 06/12/24 15:50 Pulse Oximetry 98 06/12/24 15:50 Reviewed Medical Decision Making MDM Narrative Medical decision making narrative: Patient is aware of diagnosis, understands and agrees to treatment plan. Anticipatory guidance given. Patient agrees to follow-up as directed and is aware of reasons to seek care at the emergency department. Portions of this record may have been created with voice recognition software Discussed x-ray results with patient. Rib x-ray was negative for fracture. Recommend patient take [id number] pain medications, apply ice. Follow-up primary care physician as needed. Vital Signs Vital Signs: Vital Signs Temperature 36.6 C 06/12/24 15:50 Pulse Rate 77 06/12/24 15:50 Respiratory Rate 16 06/12/24 15:50 Blood Pressure 139/70 06/12/24 15:50 Pulse Oximetry 98 06/12/24 15:50 Temperature 36.6 C 06/12/24 15:50 Pulse Rate 77 06/12/24 15:50 Respiratory Rate 16 06/12/24 15:50 Blood Pressure 139/70 06/12/24 15:50 Pulse Oximetry 98 06/12/24 15:50 Imaging Data My impression: Agree with radiologist Radiologist's impression: [id number] DATE: 06/12/2024 15:59 INDICATION: Anterior upper right rib pain after fall TECHNIQUE: PA chest. 3 views of the right ribs. COMPARISON: None FINDINGS: No displaced rib fracture is noted. Normal heart size. No hilar or mediastinal enlargement. No pulmonary infiltrate or consolidation, pleural effusion or pulmonary vascular congestion or pneumothorax is detected. Degenerative spurring of the thoracic spine. IMPRESSION: No displaced rib fracture is evident No active cardiopulmonary disease Discharge Plan Discharge Clinical Impression: Contusion of rib on right side Qualifiers: Encounter type: initial encounter Qualified Code(s): S20.211A - Contusion of right front wall of thorax, initial encounter Patient Disposition: Home, Self-Care Condition: Stable Instructions: Rib Contusion (ED) Additional Instructions: The x-ray of your right ribs did not show any fractures. Take Tylenol every 6-8 hours as needed for pain. May apply ice as needed for pain. If pain is not improving in the next 3-4 weeks follow-up with your primary care physician. If you have severe pain, chest pain, difficulty breathing go to the ER. Prescriptions: No Action methotrexate sodium 2.5 mg tablet 15 mg PO WEEKLY hydroxychloroquine 200 mg tablet 200 mg PO DAILY diclofenac potassium 25 mg capsule 25 mg PO DAILY atorvastatin 10 mg tablet 10 mg PO DAILY omeprazole 20 mg tablet,delayed release (DR/EC) 20 mg PO DAILY ijljvqdtogfb-klylgsae-hhfzoo Tablet 1 tablet PO DAILY ferrous sulfate 324 mg (65 mg iron) tablet,delayed release (DR/EC) 324 mg PO DAILY amlodipine 5 mg Tablet 5 mg PO DAILY folic acid 1 mg Tablet 1 mg PO DAILY cholecalciferol (vitamin D3) 50 mcg (2,000 unit) Capsule 50 mcg PO DAILY Follow-up/Referrals: Jose,MD Kanu [Primary Care Provider] - Time of Disposition: 16:27
== END 2024-06-12 16:28 | disposition home or self-care (01) ==
PROVIDERS: Emergency Provider Nurse Practitioner Family; PCP Internal Medicine
DX: S20.211A Contusion of right front wall of thorax, initial encounter (principal); W01.198A Fall on same level from slipping, tripping and stumbling with subsequent striking against other object, initial encounter; I10 Essential (primary) hypertension; K21.9 Gastro-esophageal reflux disease without esophagitis; E78.5 Hyperlipidemia, unspecified; Z85.46 Personal history of malignant neoplasm of prostate; Z85.72 Personal history of non-Hodgkin lymphomas; Z87.891 Personal history of nicotine dependence
CPT/HCPCS: 71101; 99213; G0463

== ENCOUNTER 2024-06-14 07:05 | Observation (INO) | payer MEDICARE, SELFPAY ==
[2024-06-14] VITALS (16 sets, daily range): BP systolic 131–154; BP diastolic 59–86; PULSE 58–80; RESP 15–19; TEMP 36.3–37; O2SAT 96–99; BMI 28.3
[2024-06-14 07:41] LABS: Basophils Percent Auto 0.5 % (0.2-1.2); Eosinophils Absolute Auto 0.1 K/mm3 (0-0.3); Eosinophils Percent Auto 1.3 % (0-4.4); Hematocrit 39.7 % (42.0-52.0); Hemoglobin 13.1 g/dL (14.0-18.0); Immature Granulocyte Absolute 0.04 K/mm3 (0.00-0.031); Immature Granulocyte Percent A 0.6 % (0-0.5); Lymphocytes Absolute Auto 0.66 K/mm3 (0.9-3.2); Lymphocytes Percent Auto 10.6 % (18.3-44.2); Mean Corpuscular Hemoglobin 29.4 pg (26-34); Mean Corpuscular Volume 89.2 fl (80-100); Mean Platelet Volume 9.8 fl (7.4-10.4); Monocytes Absolute Auto 0.5 K/mm3 (0.1-0.6); Monocytes Percent Auto 7.7 % (2.6-8.5); Neutrophils Absolute Auto 4.9 K/mm3 (1.3-6.7); Neutrophils Percent Auto 79.3 % (45.5-73.1); Platelet Count Result 203 k/mm3 (150-375); Red Blood Count 4.45 M/mm3 (4.6-6.20); White Blood Count 6.2 K/mm3 (4.5-10.0)
[2024-06-14 07:56] LABS: Partial Thromboplastin Time 28.7 Seconds (22.3-36.8)
[2024-06-14 08:08] LABS: Alanine Aminotransferase 12 U/L (6-50); Albumin Level 3.6 g/dL (3.5-5.1); Alkaline Phosphatase 69 U/L (38-126); Anion Gap 7 mmol/L (4-12); Aspartate Amino Transferase 22 U/L (17-59); Bilirubin,Total 0.6 mg/dL (0.2-1.3); Blood Urea Nitrogen 14 mg/dL (9-20); Carbon Dioxide 28 mmol/L (22-30); Chloride 104 mmol/L (98-107); Estimated CRCL calculation 74 ml/min; Estimated Glomerular Filt Rate > 60; Glucose 101 mg/dL (65-110); Sodium 139 mmol/L (137-145)
--- NOTE | 2024-06-14 08:56 | ED_ITS ---
HPI - GI Bleed General Chief complaint: GI Bleed Stated complaint: blood in stool Time Seen by Provider: 06/14/24 08:22 History of Present Illness HPI Narrative: Pt presents with bright red blood per rectum a few times since yesterday. Pt denies abdominal pain or fever. Pt denies vomiting or diarrhea. Related Data Home Medications Medication Instructions Recorded Confirmed cholecalciferol (vitamin D3) 50 50 mcg PO DAILY 12/18/19 06/14/24 mcg (2,000 unit) capsule folic acid 1 mg tablet 1 mg PO DAILY 12/18/19 06/14/24 atorvastatin 10 mg tablet 10 mg PO HS 05/07/24 06/14/24 diclofenac potassium 25 mg capsule 25 mg PO BID 05/07/24 06/14/24 ferrous sulfate 324 mg (65 mg 324 mg PO BID 05/07/24 06/14/24 iron) tablet,delayed release hydroxychloroquine 200 mg tablet 200 mg PO BID 05/07/24 06/14/24 methotrexate sodium 2.5 mg tablet 15 mg PO WEEKLY 05/07/24 06/14/24 ovwmwanuynvb-juvjyckz-mmpagx tablet 1 tablet PO DAILY 05/07/24 06/14/24 omeprazole 20 mg tablet,delayed 20 mg PO DAILY flare ups of 05/07/24 06/14/24 release arthritis gfclryeq-pt-hyrbt 300 mcg-K 60 1 tablet PO DAILY 06/14/24 06/14/24 mcg-lycop 600 mcg-lutein 300 mcg tablet (Centrum Silver Men) prednisone 5 mg tablet 5 mg PO TID PRN arthritis 06/14/24 06/14/24 Allergies Allergy/AdvReac Type Severity Reaction Status Date / Time rosuvastatin Allergy Intermediate IRRITABLE Verified 06/12/24 15:42 simvastatin Allergy Intermediate IRRITABLE Verified 06/12/24 15:42 pravastatin Allergy Mild IRRITABLE Verified 06/12/24 15:42 Review of Systems Review of Systems: All systems reviewed & are unremarkable except as noted in HPI and below PMFSH Past Medical History Medical History (Updated 06/14/24 @ 13:39 by Tameka Kate PA-C) Colon polyps Essential hypertension Gastroesophageal reflux disease Hemorrhoids Hyperlipidemia Iron deficiency anemia Marci-Richards tear (11/2019) Non-Hodgkin lymphoma (05/2019) Prostate cancer (2009) received 38 treatments of external beam radiation Rheumatoid arthritis (2014) Surgical History Surgical History History of cataract surgery History of esophagogastroduodenoscopy (11/2019) Marci-Richards tear Family History Family History Mother Congestive heart failure Sibling Malignant neoplasm of colon Sibling Malignant neoplasm of breast (female) Hodgkin lymphoma Sibling Malignant lung neoplasm Social History Social History (Updated 06/14/24 @ 13:35 by Tameka Kate PA-C) Social History: Surrogate decision maker: Ct Barrios, spouse. Code status: Full code. Smoking packs per day: 1.5 Smoking cigarettes per day: 30.0 Years smoked: 40 Smoking pack-years: 60.00 Smoking status: Former smoker Tobacco type: cigarettes Alcohol intake: current Drinks per week: 5 Substance use: never Do You Feel Safe in your Home?: Yes Lack of Transportation: No Lack of Food: Never True Current Housing: I Do Not Have Housing Concerned About Future Housing: No Difficulty Paying Gas/Electric Bills: No Difficulty Paying for Meds: No Currently Unemployed: No Education: High School Diploma/GED Difficulty w/ Childcare or Family Care: No Additional living arrangements comments: Lives with spouse in [place]. Additional occupation/education comments: Retired from [employer]. 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 Spiritual care concerns: No Exam Const: General: healthy appearing and no acute distress Nutritional Appeara nce: well nourished Orientation/consciousness: patient oriented x3 Chest: Chest palpation & inspection: normal inspection of the chest Resp: Effort & Inspection: normal respiratory effort Auscultation: clear to auscultation bilaterally Cardio: Rate: regular rate Rhythm: regular rhythm GI: GI Palp: Yes Soft to palpation and No Tenderness to palpation present (GI) Auscultation: normal bowel sounds Rectal Exam: hemorrhoids (not bleeding) Skin: General skin exam: normal color Wounds: no wounds Neuro: General: patient oriented x3, moves all extremities and no focal motor deficits Speech: normal speech Extrem: General: normal to inspection Psych: Mental Status: mental status grossly normal Attitude: cooperative Course Vital Signs Vital signs: Vital Signs Pulse Rate 80 06/14/24 07:17 Respiratory Rate 16 06/14/24 07:17 Blood Pressure 136/59 L 06/14/24 07:17 Pulse Oximetry 97 06/14/24 07:17 Temperature 98.0 F 06/14/24 12:57 Pulse Rate 65 06/14/24 12:57 Respiratory Rate 18 06/14/24 12:57 Blood Pressure 145/67 H 06/14/24 12:57 Pulse Oximetry 99 06/14/24 12:57 Oxygen Delivery Room Air 06/14/24 12:02 MDM - GI Bleed MDM Narrative Medical decision making narrative: Pt has lower Gi bleed. has some external hemmorhoids but no bleeding. H/H and VSS. discussed with Dr Magana and agrees to admit and discussed with dr agosto and agrees to admit. Lab Data 06/14/24 17:27 06/14/24 07:30 Labs: Lab Results 06/14/24 Range/Units 07:30 WBC 6.2 (4.5-10.0) K/mm3 RBC 4.45 L (4.6-6.20) M/mm3 Hgb 13.1 L D (14.0-18.0) g/dL Hct 39.7 L (42.0-52.0) % MCV 89.2 (80-100) fl MCH 29.4 (26-34) pg MCHC 33.0 (32-36) g/dl RDW 15.0 H (11.5-14.5) % Plt Count 203 (150-375) k/mm3 MPV 9.8 (7.4-10.4) fl Immature Gran % (Auto) 0.6 H (0-0.5) % Neut % (Auto) 79.3 H (45.5-73.1) % Lymph % (Auto) 10.6 L (18.3-44.2) % Parmer % (Auto) 7.7 (2.6-8.5) % Eos % (Auto) 1.3 (0-4.4) % Baso % (Auto) 0.5 (0.2-1.2) % Lymph # (Auto) 0.66 L (0.9-3.2) K/mm3 Parmer # (Auto) 0.5 (0.1-0.6) K/mm3 Eos # (Auto) 0.1 (0-0.3) K/mm3 Baso # (Auto) 0.0 (0.0-0.1) K/mm3 Abs Immat Gran (auto) 0.04 H (0.00-0.031) K/mm3 Absolute Neuts (auto) 4.9 (1.3-6.7) K/mm3 Absolute Nucleated RBC 0.000 (0.0-0.012) K/mm3 Nucleated RBC % 0.0 (0.0-0.2) % PT 14.0 (11.1-14.7) Seconds INR 1.0 APTT 28.7 (22.3-36.8) Seconds Sodium 139 (137-145) mmol/L Potassium 4.0 (3.4-5.0) mmol/L Chloride 104 (98-107) mmol/L Carbon Dioxide 28 (22-30) mmol/L Anion Gap 7 (4-12) mmol/L BUN 14 (9-20) mg/dL Creatinine 0.70 (0.7-1.3) mg/dL Estim Creat Clear Calc 74 ml/min Estimated GFR > 60 (59 - ) Glucose 101 (65-110) mg/dL Calcium 9.0 (8.4-10.2) mg/dL Total Bilirubin 0.6 (0.2-1.3) mg/dL AST 22 (17-59) U/L ALT 12 (6-50) U/L Alkaline Phosphatase 69 (38-126) U/L Total Protein 7.0 (6.3-8.2) g/dL Albumin 3.6 (3.5-5.1) g/dL Blood Type O Positive Antibody Screen Negative Discharge Plan Discharge Clinical Impression: Acute GI bleeding Patient Disposition: Still a Patient Condition: Stable
[2024-06-14 11:00] LABS: Hematocrit 39.1 % (42.0-52.0); Hemoglobin 12.6 g/dL (14.0-18.0)
--- NOTE | 2024-06-14 12:08 | ADMGEN ---
This patient, Michael Barrios, was admitted to [facility] Surg Room 316-01. Patient/family oriented to hospital policies and general routines including ID bracelet, bed and alarms, visiting hours, pain management, procedures, bathroom and other care routines, personal items, smoking policy, room service/diet, and visiting hours. Information on how to activate the Rapid Response Team has been discussed. Patient/Family are encouraged to report perceived risks to care and to ask questions if they do not understand what they are told or what they should do.
--- NOTE | 2024-06-14 13:30 | PM.IMHP ---
H&P: HPI History of Present Illness Date/Time: 06/14/24 13:30 Chief Complaint: Blood in stool. Narrative: This is a very pleasant 74-year-old male with history of prostate cancer status post radiation therapy in 2009, non-Hodgkin's lymphoma for which he completed chemotherapy in June 2019, hypertension, rheumatoid arthritis, gastroesophageal reflux disease, iron deficiency anemia, colon polyps, hemorrhoids, and Marci-Richards tear who presented to the emergency department for evaluation of blood in stool. The patient provides the following history. Yesterday he was feeling a bit constipated as he had not had a normal bowel movement for 2 days. When he went to use the restroom yesterday, denies straining, and reports passing bright red blood per rectum. He had another episode this morning and came in for evaluation. He denies that he was straining and reports passing a small amount of stool associated with bright red blood. He denies pain with the bowel movements and specifically denies abdominal and rectal pain. He has not been straining to have bowel movements. He has a history of GI bleed in 2019 however that was an upper GI bleed and was related to a Marci-Richards tear. He denies syncope, near syncope, chest pain, shortness of breath, vomiting, and melena. Last colonoscopy was about 4 years ago at [place]. In the ED: Vital signs were stable on arrival. CMP was unremarkable. Hemoglobin and hematocrit were 13.1 and 39.7% respectively. Hemorrhoids noted on rectal exam per ED physician without gross bleeding. He is being admitted in this setting for closer monitoring and GI consultation. Review of Systems Review of Systems: 12 systems were reviewed and are negative except for as per HPI. [facility] Past Medical History Medical History (Updated 06/14/24 @ 13:39 by Tameka Kate PA-C) Colon polyps Essential hypertension Gastroesophageal reflux disease Hemorrhoids Hyperlipidemia Iron deficiency anemia Marci-Richards tear (11/2019) Non-Hodgkin lymphoma (05/2019) Prostate cancer (2009) received 38 treatments of external beam radiation Rheumatoid arthritis (2014) Surgical History Surgical History History of cataract surgery History of esophagogastroduodenoscopy (11/2019) Marci-Richards tear Family History Family History Mother Congestive heart failure Sibling Malignant neoplasm of colon Sibling Malignant neoplasm of breast (female) Hodgkin lymphoma Sibling Malignant lung neoplasm Social History Social History (Updated 06/14/24 @ 13:35 by Tameka Kate PA-C) Social History: Surrogate decision maker: Ct Barrios, spouse. Code status: Full code. Smoking packs per day: 1.5 Smoking cigarettes per day: 30.0 Years smoked: 40 Smoking pack-years: 60.00 Smoking status: Former smoker Tobacco type: cigarettes Alcohol intake: current Drinks per week: 5 Substance use: never Do You Feel Safe in your Home?: Yes Lack of Transportation: No Lack of Food: Never True Current Housing: I Do Not Have Housing Concerned About Future Housing: No Difficulty Paying Gas/Electric Bills: No Difficulty Paying for Meds: No Currently Unemployed: No Education: High School Diploma/GED Difficulty w/ Childcare or Family Care: No Additional living arrangements comments: Lives with spouse in [place]. Additional occupation/education comments: Retired from [employer]. 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 Spiritual care concerns: No Meds Home Medications and Allergies Home Medications Medication Instructions Recorded Confirmed Type cholecalciferol (vitamin D3) 50 50 mcg PO DAILY 12/18/19 06/14/24 History mcg (2,000 unit) capsule folic acid 1 mg tablet 1 mg PO DAILY 12/18/19 06/14/24 History atorvastatin 10 mg tablet 10 mg PO HS 05/07/24 06/14/24 History diclofenac potassium 25 mg capsule 25 mg PO BID 05/07/24 06/14/24 History ferrous sulfate 324 mg (65 mg 324 mg PO BID 05/07/24 06/14/24 History iron) tablet,delayed release hydroxychloroquine 200 mg tablet 200 mg PO BID 05/07/24 06/14/24 History methotrexate sodium 2.5 mg tablet 15 mg PO WEEKLY 05/07/24 06/14/24 History lwcjsswnqyjy-zxvahgud-xbfxoo tablet 1 tablet PO DAILY 05/07/24 06/14/24 History omeprazole 20 mg tablet,delayed 20 mg PO DAILY flare ups of 05/07/24 06/14/24 History release arthritis neylgjtk-xk-toezo 300 mcg-K 60 1 tablet PO DAILY 06/14/24 06/14/24 History mcg-lycop 600 mcg-lutein 300 mcg tablet (Centrum Silver Men) prednisone 5 mg tablet 5 mg PO TID PRN arthritis 06/14/24 06/14/24 History Allergies Allergy/AdvReac Type Severity Reaction Status Date / Time rosuvastatin Allergy Intermediate IRRITABLE Verified 06/12/24 15:42 simvastatin Allergy Intermediate IRRITABLE Verified 06/12/24 15:42 pravastatin Allergy Mild IRRITABLE Verified 06/12/24 15:42 Vital Signs Vital Signs - 24 hr 06/14/24 07:25 06/14/24 07:17 06/14/24 07:32 Temperature 98.6 F Pulse Rate 72 80 78 Respiratory Rate 16 16 16 Blood Pressure 136/59 L 136/59 L 133/64 Pulse Oximetry 97 97 96 Oxygen Delivery Room Air 06/14/24 07:47 06/14/24 08:02 06/14/24 08:17 Temperature Pulse Rate 66 74 62 Respiratory Rate 17 17 18 Blood Pressure 131/67 143/67 H 140/66 Pulse Oximetry 96 97 99 Oxygen Delivery 06/14/24 08:32 06/14/24 08:46 06/14/24 09:01 Temperature Pulse Rate 62 63 60 Respiratory Rate 19 16 16 Blood Pressure 152/72 H 140/72 138/70 Pulse Oximetry 98 96 97 Oxygen Delivery 06/14/24 09:16 06/14/24 09:31 06/14/24 10:16 Temperature Pulse Rate 58 L 61 65 Respiratory Rate 17 18 15 Blood Pressure 144/67 H 131/66 154/86 H Pulse Oximetry 97 97 99 Oxygen Delivery 06/14/24 10:31 06/14/24 11:19 06/14/24 12:02 Temperature Pulse Rate 63 64 Respiratory Rate 18 16 Blood Pressure 139/62 134/63 Pulse Oximetry 97 97 Oxygen Delivery Room Air 06/14/24 12:57 Temperature 98.0 F Pulse Rate 65 Respiratory Rate 18 Blood Pressure 145/67 H Pulse Oximetry 99 Oxygen Delivery Exam Narrative: General: Well-developed, nontoxic-appearing male sitting up in bed in no distress. Weight: 79.5 kg. BMI: 28.3. HEENT: PERRL, EOMI. Sclerae anicteric. Conjunctiva are pale. Oral mucosa moist. Oropharynx clear. Neck: Supple. Respiratory: Lungs are clear to auscultation bilaterally. Cardiovascular: Regular rate and rhythm with S1-S2. Gastrointestinal: Abdomen is soft, nontender, nondistended with positive bowel sounds. Skin: Warm, dry, and pale. Extremities: No cyanosis, clubbing, or edema. Radial and pedal pulses intact. Neurological: Alert. Cranial nerves 2-12 are grossly intact. No gross focal deficits to casual conversation. Psychiatric: Pleasant and cooperative with normal mood and affect. Judgment and insight intact. H&P: Results Labs Labs: Short CBC 06/14/24 06/14/24 Range/Units 07:30 10:56 WBC 6.2 (4.5-10.0) K/mm3 Hgb 13.1 L D 12.6 L (14.0-18.0) g/dL Hct 39.7 L 39.1 L (42.0-52.0) % Plt Count 203 (150-375) k/mm3 BMP 06/14/24 07:30 Sodium 139 Potassium 4.0 Chloride 104 Carbon Dioxide 28 BUN 14 Creatinine 0.70 Glucose 101 Calcium 9.0 Liver Function 06/14/24 Range/Units 07:30 Total Bilirubin 0.6 (0.2-1.3) mg/dL AST 22 (17-59) U/L ALT 12 (6-50) U/L Alkaline Phosphatase 69 (38-126) U/L Albumin 3.6 (3.5-5.1) g/dL Assessment and Plan Assessment and plan (1) Rectal bleeding: Code(s): K62.5 - Hemorrhage of anus and rectum Status: Acute (2) Hemorrhoids: Code(s): K64.9 - Unspecified hemorrhoids Status: Acute (3) Iron deficiency anemia: Code(s): D50.9 - Iron deficiency anemia, unspecified Status: Acute (4) Essential hypertension: Code(s): I10 - Essential (primary) hypertension Status: Acute (5) Rheumatoid arthritis: Code(s): M06.9 - Rheumatoid arthritis, unspecified Status: Acute Plan The patient presented to the emergency department for evaluation of bright red blood per rectum as detailed in HPI. Labs, imaging, EKG, and all reports were personally reviewed. He has not had any bloody stool since arrival. ED physician examination revealed nonbleeding hemorrhoids though that still could be the culprit. He does have history of diverticulosis as well. Abdominal exam is benign at this time. His hemoglobin and hematocrit will be trended. Vital signs were reviewed and they are stable. Hold diclofenac. The rest of his home medications will be reviewed and resumed as appropriate. Findings and treatment plan were discussed with the patient. Questions were solicited and answered to satisfaction. The patient's medical management will be taken over by the hospitalist team in a.m. Quality VTE Prophylaxis VTE prophylaxis: mechanical ordered If No VTE Prophylaxis Answer both mechanical and pharmacologic: Reason no pharmacologic proph: medical contraindication (rectal bleeding) The patient has been admitted under observation status. Hospitalist [facility] Advance Care Plan I have confirmed that the patient's Advanced Care Plan is present, code status is documented, or surrogate decision maker is listed in patient medical record.: Yes Medication Reconciliation I have utilized all available resources to obtain, update and review the patients current medications (includes all prescriptions, OTC, herbals, cannabis, and nutritional supplements).: Yes
[2024-06-14] MEDS: HYDROXYCHLOROQUINE SULFATE 200 MG TABLET PO (16:29)
[2024-06-14] MEDS: FERROUS SULFATE 325 MG TABLET DR BY MOUTH (16:29)
--- NOTE | 2024-06-14 17:10 | P.CONGI_ITS ---
Assessment and Plan Assessment and plan (1) Rectal bleeding: Code(s): K62.5 - Hemorrhage of anus and rectum Status: Acute Assessment and Plan: The patient's rectal bleeding episodes are very suggestive of hemorrhoidal in origin. Given his history of prostate cancer and radiation therapy, radiation proctitis or rectal telangiectasias are also in the differential diagnosis. Since he had a recent colonoscopy at another institution, he will find and get those records for our review. If there are telangiectasias described on that exam, will consider colonoscopy and argon plasma ablation of the lesions. However, if the colonoscopy shows nothing but some hemorrhoids, will suggest discharging the patient with outpatient surgical consultation for hemorrhoidal treatment. (2) Hemorrhoids: Code(s): K64.9 - Unspecified hemorrhoids Status: Acute GI Consult Note Consult date/time: 06/14/24 17:10 Reason for consult: Rectal bleeding HPI: Michael Barrios is a 74 year old male with a history of prostate cancer status post radiation therapy in 2009, non-Hodgkin's lymphoma for which he completed chemotherapy in June 2019, hypertension, rheumatoid arthritis on Methotrexate. the patient experienced 2 episodes of bright red blood per rectum yesterday and this morning, recognizing also the passage of brown solid stools. He denies hematochezia , maroon stools, melena or abdominal pain. Of note, the patient had a colonoscopy at [facility] around 1 or 2 years ago and was told he had small polyps but no neoplasm was found. He is admitted for monitoring and GI Consultation. He has remained hemodynamically stable and does not have a drop in hemoglobin. Review of Systems Review of Systems: All systems reviewed & are unremarkable except as noted in HPI and below PMFSH Past Medical History Medical History (Updated 06/14/24 @ 13:39 by Tameka Kate PA-C) Colon polyps Essential hypertension Gastroesophageal reflux disease Hemorrhoids Hyperlipidemia Iron deficiency anemia Marci-Richards tear (11/2019) Non-Hodgkin lymphoma (05/2019) Prostate cancer (2009) received 38 treatments of external beam radiation Rheumatoid arthritis (2014) Surgical History Surgical History History of cataract surgery History of esophagogastroduodenoscopy (11/2019) Marci-Richards tear Family History Family History Mother Congestive heart failure Sibling Malignant neoplasm of colon Sibling Malignant neoplasm of breast (female) Hodgkin lymphoma Sibling Malignant lung neoplasm Social History Social History (Updated 06/14/24 @ 13:35 by Tameka Kate PA-C) Social History: Surrogate decision maker: Ct Barrios, spouse. Code status: Full code. Smoking packs per day: 1.5 Smoking cigarettes per day: 30.0 Years smoked: 40 Smoking pack-years: 60.00 Smoking status: Former smoker Tobacco type: cigarettes Alcohol intake: current Drinks per week: 5 Substance use: never Do You Feel Safe in your Home?: Yes Lack of Transportation: No Lack of Food: Never True Current Housing: I Do Not Have Housing Concerned About Future Housing: No Difficulty Paying Gas/Electric Bills: No Difficulty Paying for Meds: No Currently Unemployed: No Education: High School Diploma/GED Difficulty w/ Childcare or Family Care: No Additional living arrangements comments: Lives with spouse in [place]. 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 Spiritual care concerns: No Meds Home Medications and Allergies Home Medications Medication Instructions Recorded Confirmed Type cholecalciferol (vitamin D3) 50 50 mcg PO DAILY 12/18/19 06/14/24 History mcg (2,000 unit) capsule folic acid 1 mg tablet 1 mg PO DAILY 12/18/19 06/14/24 History atorvastatin 10 mg tablet 10 mg PO HS 05/07/24 06/14/24 History diclofenac potassium 25 mg capsule 25 mg PO BID 05/07/24 06/14/24 History ferrous sulfate 324 mg (65 mg 324 mg PO BID 05/07/24 06/14/24 History iron) tablet,delayed release hydroxychloroquine 200 mg tablet 200 mg PO BID 05/07/24 06/14/24 History methotrexate sodium 2.5 mg tablet 15 mg PO WEEKLY 05/07/24 06/14/24 History fhkgkhfnncmm-enendxte-xoymuy tablet 1 tablet PO DAILY 05/07/24 06/14/24 History omeprazole 20 mg tablet,delayed 20 mg PO DAILY flare ups of 05/07/24 06/14/24 History release arthritis kitthlda-hu-ifvon 300 mcg-K 60 1 tablet PO DAILY 06/14/24 06/14/24 History mcg-lycop 600 mcg-lutein 300 mcg tablet (Centrum Silver Men) prednisone 5 mg tablet 5 mg PO TID PRN arthritis 06/14/24 06/14/24 History Allergies Allergy/AdvReac Type Severity Reaction Status Date / Time rosuvastatin Allergy Intermediate IRRITABLE Verified 06/12/24 15:42 simvastatin Allergy Intermediate IRRITABLE Verified 06/12/24 15:42 pravastatin Allergy Mild IRRITABLE Verified 06/12/24 15:42 Vital Signs Vital Signs - 24 hr 06/14/24 07:25 06/14/24 07:17 06/14/24 07:32 Temperature 98.6 F Pulse Rate 72 80 78 Respiratory Rate 16 16 16 Blood Pressure 136/59 L 136/59 L 133/64 Pulse Oximetry 97 97 96 Oxygen Delivery Room Air 06/14/24 07:47 06/14/24 08:02 06/14/24 08:17 Temperature Pulse Rate 66 74 62 Respiratory Rate 17 17 18 Blood Pressure 131/67 143/67 H 140/66 Pulse Oximetry 96 97 99 Oxygen Delivery 06/14/24 08:32 06/14/24 08:46 06/14/24 09:01 Temperature Pulse Rate 62 63 60 Respiratory Rate 19 16 16 Blood Pressure 152/72 H 140/72 138/70 Pulse Oximetry 98 96 97 Oxygen Delivery 06/14/24 09:16 06/14/24 09:31 06/14/24 10:16 Temperature Pulse Rate 58 L 61 65 Respiratory Rate 17 18 15 Blood Pressure 144/67 H 131/66 154/86 H Pulse Oximetry 97 97 99 Oxygen Delivery 06/14/24 10:31 06/14/24 11:19 06/14/24 12:02 Temperature Pulse Rate 63 64 Respiratory Rate 18 16 Blood Pressure 139/62 134/63 Pulse Oximetry 97 97 Oxygen Delivery Room Air 06/14/24 12:57 Temperature 98.0 F Pulse Rate 65 Respiratory Rate 18 Blood Pressure 145/67 H Pulse Oximetry 99 Oxygen Delivery Exam Const: General: cooperative and healthy appearing Resp: Effort & Inspection: normal respiratory effort and able to speak in complete sentences Auscultation: clear to auscultation bilaterally Cardio: Rate: regular rate Rhythm: regular rhythm GI: Inspection: normal to inspection GI Palp: No No hepatosplenomegaly present Auscultation: normal bowel sounds Rectal Exam: deferred Skin: General skin exam: normal color Psych: Appearance: grossly normal Mental Status: mental status grossly normal Results Labs 06/14/24 10:56 06/14/24 07:30 Labs: Short CBC 06/14/24 06/14/24 Range/Units 07:30 10:56 WBC 6.2 (4.5-10.0) K/mm3 Hgb 13.1 L D 12.6 L (14.0-18.0) g/dL Hct 39.7 L 39.1 L (42.0-52.0) % Plt Count 203 (150-375) k/mm3 BMP 06/14/24 07:30 Sodium 139 Potassium 4.0 Chloride 104 Carbon Dioxide 28 BUN 14 Creatinine 0.70 Glucose 101 Calcium 9.0 Liver Function 06/14/24 Range/Units 07:30 Total Bilirubin 0.6 (0.2-1.3) mg/dL AST 22 (17-59) U/L ALT 12 (6-50) U/L Alkaline Phosphatase 69 (38-126) U/L Albumin 3.6 (3.5-5.1) g/dL
[2024-06-14 17:36] LABS: Hemoglobin 13.4 g/dL (14.0-18.0)
[2024-06-14] MEDS: ACETAMINOPHEN 325 MG TABLET 650 MG PO (21:51)
[2024-06-14] MEDS: ATORVASTATIN 10 MG TABLET PO (21:51)
[2024-06-14 23:38] LABS: Hematocrit 41.2 % (42.0-52.0); Hemoglobin 13.6 g/dL (14.0-18.0)
[2024-06-15 04:50] VITALS: BP 146/72; PULSE 71; RESP 22; TEMP 37.4; O2SAT 97
[2024-06-15 07:09] LABS: Hematocrit 44.3 % (42.0-52.0); Hemoglobin 14.3 g/dL (14.0-18.0)
[2024-06-15 07:10] LABS: Hematocrit 44.7 % (42.0-52.0); Hemoglobin 14.5 g/dL (14.0-18.0); Mean Corpuscular HGB Conc 32.4 g/dl (32-36); Mean Corpuscular Hemoglobin 29.3 pg (26-34); Mean Corpuscular Volume 90.3 fl (80-100); Mean Platelet Volume 9.9 fl (7.4-10.4); Platelet Count Result 272 k/mm3 (150-375); Red Blood Count 4.95 M/mm3 (4.6-6.20); Red Cell Distribution Width 15.2 % (11.5-14.5); White Blood Count 7.9 K/mm3 (4.5-10.0)
[2024-06-15 07:16] LABS: Anion Gap 5 mmol/L (4-12); Blood Urea Nitrogen 10 mg/dL (9-20); Calcium 9.7 mg/dL (8.4-10.2); Carbon Dioxide 32 mmol/L (22-30); Chloride 102 mmol/L (98-107); Estimated CRCL calculation 74 ml/min; Estimated Glomerular Filt Rate > 60; Glucose 94 mg/dL (65-110); Magnesium 2.1 mg/dL (1.6-2.3); Potassium 4.7 mmol/L (3.4-5.0); Sodium 139 mmol/L (137-145)
[2024-06-15 08:10] VITALS: O2SAT 97
[2024-06-15] MEDS: ACETAMINOPHEN 325 MG TABLET 650 MG PO (09:53)
[2024-06-15] MEDS: FERROUS SULFATE 325 MG TABLET DR BY MOUTH (09:54)
[2024-06-15] MEDS: HYDROXYCHLOROQUINE SULFATE 200 MG TABLET PO (09:54)
[2024-06-15 14:00] VITALS: BP 112/59; PULSE 75; RESP 20; TEMP 36.4; O2SAT 99
--- NOTE | 2024-06-15 14:34 | P.DS_ITS ---
DS: Admitting Diagnosis Discharge Date 06/15/2024 Admitting Diagnosis Possible GI bleed/hemorrhoids DS: Discharge Diagnosis Discharge Diagnosis (1) Hemorrhoids: Code(s): K64.9 - Unspecified hemorrhoids Status: Acute (2) Rectal bleeding: Code(s): K62.5 - Hemorrhage of anus and rectum Status: Acute (3) Iron deficiency anemia: Code(s): D50.9 - Iron deficiency anemia, unspecified Status: Acute (4) Rheumatoid arthritis: Onset Date: 2014 Code(s): M06.9 - Rheumatoid arthritis, unspecified Status: Acute (5) Acute GI bleeding: Code(s): K92.2 - Gastrointestinal hemorrhage, unspecified Status: Acute DS: Summary Hospital Course Reason for hospitalization: Acute GI bleed/hemorrhoids Hospital Course: This was a 74-year-old male with history of prostate cancer status post radiation therapy in 2009, non-Hodgkin's lymphoma for which he completed chemotherapy in June 2019, hypertension, rheumatoid arthritis, gastroesophageal reflux disease, iron deficiency anemia, colon polyps, hemorrhoids, and Marci-Richards tear who was admitted to the medical unit for further evaluation of possible GI bleed prior to admission he was feeling a bit constipated as he had not had a normal bowel movement for 2 days. When he went to use the restroom yesterday, denies straining, and reports passing bright red blood per rectum. He had another episode this morning and came in for evaluation. . He has a history of GI bleed in 2019 however that was an upper GI bleed and was related to a Marci-Richards tear. He denies syncope, near syncope, chest pain, shortness of breath, vomiting, and melena. Last colonoscopy was about 4 years ago at [place] which reportedly couple polyps removed but no malignancy.. GI have been consult for further evaluation however following morning H&H was stable and actually improved to 14.8 patient had no further episodes of bright red blood to rectum or stool. Patient made aware likely hemorrhoidal and to follow-up with surgery referral outpatient spoke with GI who at this time also recommend she stay follow-up with his GI doctor at [facility] for next colonoscopy as well as referral to surgery. Patient remained hemodynamically stable during his observation. And can follow with primary care physician follow-up CBC CT close monitoring on H&H. Status at Discharge Functional status at discharge: independent ambulation Overall status at discharge: patient is back to baseline Time Spent with Patient Time attestation: Total time spent providing and/or coordinating discharge services: Time spent: Greater than 30 minutes Exam Narrative: * GENERAL: Alert and oriented x 3. No acute distress. * EYES: PERRLA. * HEENT: Moist mucous membranes. * LUNGS: Clear to auscultation bilaterally. No accessory muscle use. * CARDIOVASCULAR: Regular rate and rhythm. No murmur. No JVD. S1-S2 * ABDOMEN: Soft, non tenderness and non-distended. No palpable masses. * EXTREMITIES: No edema. Non-tender * SKIN: No rashes or lesions. Skin warm, dry. * NEUROLOGIC: No focal neurological deficits. CN II-XII grossly intact * PSYCHIATRIC: Appropriate mood and affect. Good judgement and insight. DS: Data Data Completed and Pending Labs on day of discharge: Labs from last 24 hours 06/15/24 06/15/24 06/15/24 06:46 06:46 06:46 WBC 7.9 RBC 4.95 Hgb 14.3 14.5 Hct 44.3 44.7 MCV 90.3 MCH 29.3 MCHC 32.4 RDW 15.2 H Plt Count 272 MPV 9.9 Sodium 139 Potassium 4.7 Chloride 102 Carbon Dioxide 32 H Anion Gap 5 BUN 10 Creatinine 0.70 Estim Creat Clear Calc 74 Estimated GFR > 60 Glucose 94 Calcium 9.7 Magnesium 2.1 06/14/24 06/14/24 23:33 17:27 WBC RBC Hgb 13.6 L 13.4 L Hct 41.2 L 41.0 L MCV MCH MCHC RDW Plt Count MPV Sodium Potassium Chloride Carbon Dioxide Anion Gap BUN Creatinine Estim Creat Clear Calc Estimated GFR Glucose Calcium Magnesium Discharge Plan Discharge Attending physician on discharge: Jung Sánchez Consulting providers: Fredy Magana Discharging Clinician: Shyla Mata Anticipated Discharge Date/Time: 06/15/24 14:24 Patient Disposition: Home, Self-Care Activity: no straining and as tolerated Diet: high fiber Discharge Instructions: You are being discharged after evaluation for possible GI bleed however your blood counts improved and remained stable at this time with no concern for active GI bleed. I have provided information for follow-up with surgery for hemorrhoidal treatment outpatient and encourage a follow-up with you GI doctor at [facility]. I recommend a high fiber diet and no straining with defecation as well as good oral hydration. How can you care for yourself at home? ? Keep track of any new symptoms or changes in your symptoms. ? Rest until you feel better. ? Be safe with medicines. Take your medicines exactly as prescribed. Call your doctor if you think you are having a problem with your medicine. ? Do not drive after taking a prescription pain medicine. ? Ensure to follow-up with primary care physician as indicated and provide updated medication list provided to you at discharge. When should you call for help? Call 911 anytime you think you may need emergency care. For example, call if: ? You passed out (lost consciousness). Call your doctor now or seek immediate medical care if: ? You have new symptoms like fever, difficulty breathing, Chest pain, vomiting, or rash. ? You have new or different pain. ? You are confused and are having trouble thinking clearly. ? Your symptoms are getting worse. Watch closely for changes in your health, and be sure to contact your doctor if: ? You do not get better as expected. Patient Instructions: Antibiotic Form, Hemorrhoids (DC) Patient Language: Georgian Stand Alone Forms: General Discharge Information Follow-up/Referrals: Jose,MD Kanu [Primary Care Provider] - 2 Weeks Lino Velasquez MD [Physician] - (Hemorrhoidal treatment) Discharge Medications: Continued methotrexate sodium 2.5 mg tablet 15 mg PO WEEKLY Rx Instructions: 6 tablets weekly, takes on Sundays hydroxychloroquine 200 mg tablet 200 mg PO BID diclofenac potassium 25 mg capsule 25 mg PO BID atorvastatin 10 mg tablet 10 mg PO HS omeprazole 20 mg tablet,delayed release (DR/EC) 20 mg PO DAILY jguiietrhaiz-nolntdcm-ttyekp Tablet 1 tablet PO DAILY ferrous sulfate 324 mg (65 mg iron) tablet,delayed release (DR/EC) 324 mg PO BID folic acid 1 mg Tablet 1 mg PO DAILY cholecalciferol (vitamin D3) 50 mcg (2,000 unit) Capsule 50 mcg PO DAILY prednisone 5 mg tablet 5 mg PO TID PRN (Reason: arthritis) Centrum Silver Men [id number] mcg Tablet 1 tablet PO DAILY Date of admission: 06/14/24 10:20 Primary Care Provider: Kanu Bunch Admitting Provider: Jung Sánchez Attending physician on admission: Shyla Mata Condition: Stable Hospitalist MIPS Heart Failure (Exclusion) Patient has history of Heart Transplant or Left Ventricular Assistive Device?: No IF YES, STOP HERE Heart Failure (Qualifier) Patient has current or prior documentation of LVEF less than or equal to 40%, or mod/servere depressed LVSF?: No IF NO, STOP HERE
== END 2024-06-15 15:30 | disposition home or self-care (01) ==
LOC: ANHED 10:14 → ANH3MEDSUR 11:11
PROVIDERS: Physician Assistant; Admitting Provider Internal Medicine; Emergency Provider Emergency Medicine; PCP Internal Medicine; Visit Provider Nurse Practitioner Family
DX: K62.5 Hemorrhage of anus and rectum (principal); K64.9 Unspecified hemorrhoids; D50.9 Iron deficiency anemia, unspecified; I10 Essential (primary) hypertension; K21.9 Gastro-esophageal reflux disease without esophagitis; E78.5 Hyperlipidemia, unspecified; M06.9 Rheumatoid arthritis, unspecified; C85.90 Non-Hodgkin lymphoma, unspecified, unspecified site; Z79.899 Other long term (current) drug therapy; Z86.0100 Personal history of colon polyps, unspecified; Z87.891 Personal history of nicotine dependence; Z87.19 Personal history of other diseases of the digestive system; Z85.46 Personal history of malignant neoplasm of prostate; Z92.3 Personal history of irradiation; Z92.21 Personal history of antineoplastic chemotherapy
CPT/HCPCS: 36415; 80048; 80053; 83735; 85014; 85018; 85025; 85027; 85610; 85730; 86850; 86900; 86901; 99285; A9270; G0378

== ENCOUNTER 2024-07-05 19:45 | Inpatient (IN) | payer MEDICARE, SELFPAY ==
[2024-07-05] VITALS (17 sets, daily range): BP systolic 68–155; BP diastolic 51–123; PULSE 66–94; RESP 15–37; TEMP 36.2; O2SAT 87–100; BMI 28.6
--- NOTE | ~2024-07-05 | XR_ITS ---
XR chest 1V portable 07/08/2024 11:24 Indication: Tachypnea Procedure: AP portable chest Comparison: 07/05/2024 Findings: Cardiomegaly. Improving pulmonary edema. No pleural effusion or pneumothorax. Impression: 1: Improving pulmonary edema. Reviewed, dictated and finalized at location B. [facility] [employer] REP Impression: 1: Improving pulmonary edema.
--- NOTE | ~2024-07-05 | XR_ITS ---
EXAMINATION: XR chest 1V portable DATE: 07/05/2024 20:22 INDICATION: ST elevation myocardial infarction. TECHNIQUE: A single frontal view of the chest was obtained. COMPARISON: CT abdomen and pelvis 12/18/2019 FINDINGS: There is a diffuse reticulonodular pattern in the lungs. No pleural effusion or pneumothora x. The heart size is normal. IMPRESSION: 1. Diffuse lung disease, consistent with pulmonary edema versus pneumonia. Reviewed, dictated and finalized at location A. TS OFFICIAL
--- NOTE | 2024-07-05 20:04 | ECG_ITS ---
Test Date: 2024-07-05 19:52:17 Measurements Intervals [place] Rate: 67 P: 0 WA: 0 QRS: 136 QRSD: 127 T: 0 QT: 359 QTc: 380 Interpretive Statements ATRIAL FIBRILLATION MODERATE INTRAVENTRICULAR CONDUCTION DELAY [105+ ms QRS DURATION, 80+ ms Q/S IN V1/V2, NO Q AND 60+ ms R IN I/aVL/V5/V6] POSSIBLE RIGHT VENTRICULAR HYPERTROPHY [SOME/ALL OF: PROMINENT R IN V1, LATE TRANSITION, RAD, ED, SSS] MARKED ST ELEVATION, CONSIDER INFERIOR INJURY [MARKED ST ELEVATION W/O NORMALLY INFLECTED T-WAVE IN II/aVF] ACUTE MA No previous ECG available for comparison Electronically Signed On 07-06-2024 16:11:44 BICYCLE REPAIR TECHNICIAN by Jose Alberto Casillas M.D.
[2024-07-05 20:12] LABS: Basophils Absolute Auto 0.1 K/mm3 (0.0-0.1); Basophils Percent Auto 0.6 % (0.2-1.2); Eosinophils Absolute Auto 0.1 K/mm3 (0-0.3); Eosinophils Percent Auto 0.9 % (0-4.4); Hematocrit 41.7 % (42.0-52.0); Hemoglobin 13.1 g/dL (14.0-18.0); Immature Granulocyte Absolute 0.66 K/mm3 (0.00-0.031); Immature Granulocyte Percent A 4.6 % (0-0.5); Lymphocytes Absolute Auto 4.14 K/mm3 (0.9-3.2); Lymphocytes Percent Auto 28.8 % (18.3-44.2); Mean Corpuscular HGB Conc 31.4 g/dl (32-36); Mean Corpuscular Hemoglobin 29.5 pg (26-34); Mean Corpuscular Volume 93.9 fl (80-100); Mean Platelet Volume 10.1 fl (7.4-10.4); Monocytes Absolute Auto 0.4 K/mm3 (0.1-0.6); Monocytes Percent Auto 2.4 % (2.6-8.5); Neutrophils Percent Auto 62.7 % (45.5-73.1); Platelet Count Result 373 k/mm3 (150-375); Red Blood Count 4.44 M/mm3 (4.6-6.20); Red Cell Distribution Width 14.6 % (11.5-14.5); White Blood Count 14.4 K/mm3 (4.5-10.0)
--- NOTE | 2024-07-05 20:16 | PC.NURSE ---
Patient taken to shift lab technician
--- NOTE | 2024-07-05 20:17 | PM.IMHP ---
H&P: HPI History of Present Illness Date/Time: 07/05/24 20:17 Chief Complaint: Chest pain Narrative: 74-year-old male with hypertension, dyslipidemia, rheumatoid arthritis. No known prior cardiac history. Patient was brought to [facility] Emergency Room on 07/05/2024 via EMS with complaints of chest pain that according to patient started about an hour echo. EMS was summoned. He had an episode of loss of consciousness , and based on the report provided by the ER physician, patient had VFib arrest and was resuscitated as per ACLS protocol and shocked x1 and was given IV amiodarone. He was brought to the emergency room promptly, and patient had ROSC. He was alert in the emergency room. EKG on my personal interpretation showed underlying atrial fibrillation, ST-elevation in the inferior leads, QRS widening. Patient was brought to the cardiac earth science laboratory technician emergently. At the time of evaluation in the earth science laboratory technician, patient had ongoing chest pain. While patient was getting drape, he had 1 more episode of VFib arrest, and was successfully shocked x1 with alevism of sinus rhythm. Emergent coronary angiogram showed subtotal thrombotic occlusion of proximal LCX ( left circumflex artery is dominant vessel) -infarct related vessel. He underwent primary PCI / MIRANDA x1 proximal LCX with alevism of flow. Review of Systems Review of Systems: General: Negative for fever, chills, fatigue Psychological: Negative for anxiety, depression Ophthalmic: negative for loss of vision ENT: Negative for epistaxis, headaches Allergy and immunology: Negative for hives, nasal congestion Hematologic and lymphatic: Negative for overt bleeding problems Endocrine: Negative for hot flashes, palpitations Respiratory: Negative for cough, hemoptysis Cardiovascular: Positive for severe chest pain and dizziness Gastrointestinal: Negative for abdominal pain, nausea, vomiting, hematochezia Musculoskeletal: Negative for myalgia, joint pains Neurological: Negative for weakness Dermatological: Negative for rash, skin discoloration PMFSH Past Medical History Medical History Iron deficiency anemia Marci-Richards tear (11/2019) Rheumatoid arthritis (2014) Prostate cancer (2009) received 38 treatments of external beam radiation Non-Hodgkin lymphoma (05/2019) Hemorrhoids Colon polyps Gastroesophageal reflux disease Hyperlipidemia Essential hypertension Surgical History Surgical History History of esophagogastroduodenoscopy (11/2019) Marci-Richards tear History of cataract surgery Family History Family History Mother Congestive heart failure Sibling Malignant neoplasm of colon Sibling Malignant neoplasm of breast (female) Hodgkin lymphoma Sibling Malignant lung neoplasm Social History Social History Social History: Surrogate decision maker: Ct Barrios, spouse. Code status: Full code. Smoking packs per day: 1.5 Smoking cigarettes per day: 30.0 Years smoked: 40 Smoking pack-years: 60.00 Smoking status: Former smoker Tobacco type: cigarettes Alcohol intake: current Drinks per week: 5 Substance use: never Do You Feel Safe in your Home?: Yes Lack of Transportation: No Lack of Food: Never True Current Housing: I Do Not Have Housing Concerned About Future Housing: No Difficulty Paying Gas/Electric Bills: No Difficulty Paying for Meds: No Currently Unemployed: No Education: High School Diploma/GED Difficulty w/ Childcare or Family Care: No Additional living arrangements comments: Lives with spouse in [place]. Additional occupation/education comments: Retired from [employer]. 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 Spiritual care concerns: No Meds Home Medications and Allergies Home Medications ?Medication ?Instructions ?Recorded ?Confirmed ?Type cholecalciferol (vitamin D3) 50 50 mcg PO DAILY 12/18/19 06/14/24 History mcg (2,000 unit) capsule folic acid 1 mg tablet 1 mg PO DAILY 12/18/19 06/14/24 History atorvastatin 10 mg tablet 10 mg PO HS 05/07/24 06/14/24 History diclofenac potassium 25 mg capsule 25 mg PO BID 05/07/24 06/14/24 History ferrous sulfate 324 mg (65 mg 324 mg PO BID 05/07/24 06/14/24 History iron) tablet,delayed release hydroxychloroquine 200 mg tablet 200 mg PO BID 05/07/24 06/14/24 History methotrexate sodium 2.5 mg tablet 15 mg PO WEEKLY 05/07/24 06/14/24 History qqmdmtnijmaw-czzsxrjx-mdweqn tablet 1 tablet PO DAILY 05/07/24 06/14/24 History omeprazole 20 mg tablet,delayed 20 mg PO DAILY flare ups of 05/07/24 06/14/24 History release arthritis wynpjpsx-gg-wctys 300 mcg-K 60 1 tablet PO DAILY 06/14/24 06/14/24 History mcg-lycop 600 mcg-lutein 300 mcg tablet (Centrum Silver Men) prednisone 5 mg tablet 5 mg PO TID PRN arthritis 06/14/24 06/14/24 History Allergies Allergy/AdvReac Type Severity Reaction Status Date / Time rosuvastatin Allergy Intermediate IRRITABLE Verified 06/12/24 15:42 simvastatin Allergy Intermediate IRRITABLE Verified 06/12/24 15:42 pravastatin Allergy Mild IRRITABLE Verified 06/12/24 15:42 Vital Signs Vital Signs - 24 hr 07/05/24 19:43 07/05/24 20:00 07/05/24 20:01 Pulse Rate 66 94 Respiratory Rate 37 H 32 H Blood Pressure 96/72 L 114/66 Pulse Oximetry 87 L 87 L 88 L Oxygen Delivery Nasal Cannula Nasal Cannula Oxygen Flow Rate 7 7 Exam Narrative: PHYSICAL EXAMINATION: GENERAL: Alert, severe distress due to ongoing chest pain MENTAL STATUS: anxious EYES: Extraocular movements intact, no pallor EARS: External ears appear normal, hearing grossly normal NOSE: Normal and patent, no discharge MOUTH: Mucous membranes moist, tongue normal NECK: Supple, no JVD CHEST: diminished breath sounds HEART: Normal rate, regular rhythm, distant heart sounds ABDOMEN: Soft, nontender NEUROLOGICAL: Alert, oriented, normal speech, no gross motor deficits MUSCULOSKELETAL: No major deformity, no amputation EXTREMITIES: No pedal edema, no clubbing, no cyanosis SKIN: no rash on the exposed area, no cyanosis PSYCHIATRIC: Normal mood, appropriate affect Assessment and Plan Assessment and plan (1) ST elevation (STEMI) myocardial infarction: Code(s): I21.3 - ST elevation (STEMI) myocardial infarction of unspecified site Status: Acute Plan 74-year-old male with hypertension, dyslipidemia, rheumatoid arthritis. No known prior cardiac history. Brought to hospital via EMS after patient had chest pain, VFib cardiac arrest on the field, defibrillated x1; ongoing chest pain in the earth science laboratory technician, 1 more episode of VFib, shocked x1 with alevism of sinus rhythm. Patient underwent primary PCI/MIRANDA of subtotal occlusion of proximal segment of dominant left circumflex artery. Left ventriculogram showed severe LV systolic dysfunction. - Admit to ICU . Telemetry monitoring for any recurrent post [place] arrhythmias. - dual antiplatelet therapy with aspirin and ticagrelor; high-dose atorvastatin. Beta-hugo, ACEI or ARB. - echo Doppler with contrast to reassess LV function, rule out major structural abnormalities and LV thrombus. - Labs including CBC, CMP, lipid panel, lactate, HbA1c - External wearable defibrillator (lifevest) at discharge. - patient, his family and IC patient updated.
[2024-07-05 20:23] LABS: INR 1.2; Prothrombin Time 15.4 Seconds (11.1-14.7)
[2024-07-05 20:26] LABS: Alanine Aminotransferase 203 U/L (6-50); Albumin Level 3.5 g/dL (3.5-5.1); Alkaline Phosphatase 80 U/L (38-126); Anion Gap 12 mmol/L (4-12); Aspartate Amino Transferase 334 U/L (17-59); Bilirubin,Total 0.5 mg/dL (0.2-1.3); Blood Urea Nitrogen 18 mg/dL (9-20); Carbon Dioxide 19 mmol/L (22-30); Chloride 107 mmol/L (98-107); Cholesterol 107 mg/dL (0-200); Estimated CRCL calculation 63 ml/min; Estimated Glomerular Filt Rate > 60; Glucose 191 mg/dL (65-110); HDL Direct 36 mg/dL; Potassium 3.4 mmol/L (3.4-5.0); Sodium 138 mmol/L (137-145); Triglycerides 159 mg/dL (<150)
[2024-07-05 20:30] LABS: Lactic Acid Reflex 9.6 mmol/L (0.7-2.0)
[2024-07-05 20:37] LABS: LDL Cholesterol Direct 55 mg/dL
[2024-07-05 20:43] LABS: Troponin I 0.414 ng/mL (0.000-0.034)
--- NOTE | 2024-07-05 20:43 | ED_ITS ---
HPI - General Adult General Chief complaint: Cardiac Arrest/CPR Stated complaint: STEMI History of Present Illness HPI narrative: Patient is a 74-year-old male who presents ER I as a STEMI. Patient had been working throughout the afternoon getting his boat at a [employer] and had been moving sandbags. He developed crushing chest pain. He went to his home and was pale and complained of vomiting. EMS arrived he was in his basement. Patient had cardiac arrest while not being on the monitor. He had ROSC after 1 round of compressions. EMS applied leads and discovered STEMI and activated the earth science laboratory technician. Patient then had a 2nd cardiac arrest with VFib and he was shocked successfully. Amiodarone 150 mg given. Patient arrives pale in being given supplemental breathing support. Oriented x3. Related Data Home Medications ?Medication ?Instructions ?Recorded ?Confirmed ?Last Taken ?Type cholecalciferol (vitamin D3) 50 50 mcg PO DAILY 12/18/19 07/05/24 07/05/24 History mcg (2,000 unit) capsule folic acid 1 mg tablet 1 mg PO DAILY 12/18/19 07/05/24 07/05/24 History atorvastatin 10 mg tablet 20 mg PO HS 05/07/24 07/05/24 07/04/24 History diclofenac potassium 25 mg capsule 75 mg PO BID 05/07/24 07/05/24 07/05/24 History ferrous sulfate 324 mg (65 mg 324 mg PO BID 05/07/24 07/05/24 07/05/24 History iron) tablet,delayed release hydroxychloroquine 200 mg tablet 200 mg PO BID 05/07/24 07/05/24 07/05/24 History methotrexate sodium 2.5 mg tablet 15 mg PO WEEKLY 05/07/24 07/05/24 07/04/24 History etxnjphjaziq-lzbzhbtm-mlvwip tablet 1 tablet PO DAILY 05/07/24 07/05/24 06/14/24 History omeprazole 20 mg tablet,delayed 20 mg PO DAILY flare ups of 05/07/24 07/05/24 07/05/24 History release arthritis dxoadgmu-jf-jnssj 300 mcg-K 60 1 tablet PO DAILY 06/14/24 07/05/24 07/05/24 History mcg-lycop 600 mcg-lutein 300 mcg tablet (Centrum Silver Men) prednisone 5 mg tablet 5 mg PO TID PRN arthritis 06/14/24 07/05/24 Unknown History atorvastatin 20 mg tablet 20 mg PO QPM 07/05/24 07/05/24 07/04/24 History diclofenac sodium 75 mg 75 mg PO Q12H 07/05/24 07/05/24 07/05/24 History tablet,delayed release prevagen 50 mcg PO DAILY 07/05/24 07/05/24 07/05/24 History Allergies Allergy/AdvReac Type Severity Reaction Status Date / Time rosuvastatin Allergy Intermediate IRRITABLE Verified 07/05/24 22:04 simvastatin Allergy Intermediate IRRITABLE Verified 07/05/24 22:04 pravastatin Allergy Mild IRRITABLE Verified 07/05/24 22:04 Review of Systems 2 Review of Systems: All systems reviewed & are unremarkable except as noted in HPI and below Constitutional: Constitutional: Denies chills, Reports fatigue and Denies fever(s) Cardiovascular: Cardiovascular: Reports chest pain, Denies rapid heart rate and Denies radiating jaw, neck or arm pain Respiratory: Respiratory: Reports no additional respiratory complaints Gastrointestinal: Gastrointestinal: Reports no additional gastrointestinal complaints [facility] Past Medical History Medical History Iron deficiency anemia Marci-Richards tear (11/2019) Rheumatoid arthritis (2014) Prostate cancer (2009) received 38 treatments of external beam radiation Non-Hodgkin lymphoma (05/2019) Hemorrhoids Colon polyps Gastroesophageal reflux disease Hyperlipidemia Essential hypertension Surgical History Surgical History History of esophagogastroduodenoscopy (11/2019) Marci-Richards tear History of cataract surgery Family History Family History Mother Congestive heart failure Sibling Malignant neoplasm of colon Sibling Malignant neoplasm of breast (female) Hodgkin lymphoma Sibling Malignant lung neoplasm Social History Social History Social History: Surrogate decision maker: Ct Barrios, spouse. Code status: Full code. Smoking packs per day: 1.5 Smoking cigarettes per day: 30.0 Years smoked: 40 Smoking pack-years: 60.00 Smoking status: Former smoker Alcohol intake: current Drinks per week: 5 Substance use: never Do You Feel Safe in your Home?: Yes Lack of Transportation: No Lack of Food: Never True Current Housing: I Do Not Have Housing Concerned About Future Housing: No Difficulty Paying Gas/Electric Bills: No Difficulty Paying for Meds: No Currently Unemployed: No Education: High School Diploma/GED Difficulty w/ Childcare or Family Care: No Additional living arrangements comments: Lives with spouse in [place]. Additional occupation/education comments: Retired from [email or web address]. 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 Spiritual care concerns: No Exam 2 Narrative: GENERAL: Ill-appearing, well-nourished, and in moderate acute distress. HEAD: Normocephalic, atraumatic. EYES: PERRL and EOMI. ENT: Mucous membranes moist. CHEST: Clear to auscultation. No respiratory distress. HEART: Regular rate and rhythm. Normal peripheral pulses. ABDOMEN: Soft, nontender, nondistended. EXTREMITIES: Normal range of motion. No edema. SKIN: Cool, mottled, no rash. NEURO: Alert and oriented x3. PSYCH: Normal mood and affect. Course Course Emergency Course: Upon arrival patient blood pressure in the 80s/90s. With IV fluids and supple oxygen blood pressure improved into the 110's. He reports crushing chest pain without radiation. Patient received oral aspirin 324 mg and IV heparin 4000 units. Cath team at the bedside. I have been on the phone multiple times Dr. Mayberry to update him a patient course. I have escorted the to the ICU waiting room and discussed the patient's care with her. Vital Signs Vital signs: Vital Signs Pulse Rate 66 07/05/24 19:43 Respiratory Rate 37 H 07/05/24 19:43 Blood Pressure 96/72 L 07/05/24 19:43 Pulse Oximetry 87 L 07/05/24 19:43 Oxygen Delivery Nasal Cannula 07/05/24 19:43 Oxygen Flow Rate 7 07/05/24 19:43 Pulse Rate 94 07/05/24 20:00 Respiratory Rate 32 H 07/05/24 20:00 Blood Pressure 114/66 07/05/24 20:00 Pulse Oximetry 88 L 07/05/24 20:01 Oxygen Delivery Nasal Cannula 07/05/24 20:01 Oxygen Flow Rate 7 07/05/24 20:01 Medical Decision Making Vital Signs Vital Signs: Vital Signs Pulse Rate 66 07/05/24 19:43 Respiratory Rate 37 H 07/05/24 19:43 Blood Pressure 96/72 L 07/05/24 19:43 Pulse Oximetry 87 L 07/05/24 19:43 Oxygen Delivery Nasal Cannula 07/05/24 19:43 Oxygen Flow Rate 7 07/05/24 19:43 Pulse Rate 94 07/05/24 20:00 Respiratory Rate 32 H 07/05/24 20:00 Blood Pressure 114/66 07/05/24 20:00 Pulse Oximetry 88 L 07/05/24 20:01 Oxygen Delivery Nasal Cannula 07/05/24 20:01 Oxygen Flow Rate 7 07/05/24 20:01 Lab Data 07/05/24 20:05 07/05/24 20:05 Labs: Lab Results 07/05/24 07/05/24 Range/Units 20:05 20:07 WBC 14.4 H (4.5-10.0) K/mm3 RBC 4.44 L (4.6-6.20) M/mm3 Hgb 13.1 L (14.0-18.0) g/dL Hct 41.7 L (42.0-52.0) % MCV 93.9 (80-100) fl MCH 29.5 (26-34) pg MCHC 31.4 L (32-36) g/dl RDW 14.6 H (11.5-14.5) % Plt Count 373 (150-375) k/mm3 MPV 10.1 (7.4-10.4) fl Immature Gran % (Auto) 4.6 H (0-0.5) % Neut % (Auto) 62.7 (45.5-73.1) % Lymph % (Auto) 28.8 (18.3-44.2) % [place] % (Auto) 2.4 L (2.6-8.5) % Eos % (Auto) 0.9 (0-4.4) % Baso % (Auto) 0.6 (0.2-1.2) % Lymph # (Auto) 4.14 H (0.9-3.2) K/mm3 [place] # (Auto) 0.4 (0.1-0.6) K/mm3 Eos # (Auto) 0.1 (0-0.3) K/mm3 Baso # (Auto) 0.1 (0.0-0.1) K/mm3 Abs Immat Gran (auto) 0.66 H (0.00-0.031) K/mm3 Absolute Neuts (auto) 9.0 H (1.3-6.7) K/mm3 Absolute Nucleated RBC 0.000 (0.0-0.012) K/mm3 Nucleated RBC % 0.0 (0.0-0.2) % PT 15.4 H (11.1-14.7) Seconds INR 1.2 APTT 27.0 (22.3-36.8) Seconds Sodium 138 (137-145) mmol/L Potassium 3.4 (3.4-5.0) mmol/L Chloride 107 (98-107) mmol/L Carbon Dioxide 19 L (22-30) mmol/L Anion Gap 12 (4-12) mmol/L BUN 18 (9-20) mg/dL Creatinine 0.90 (0.7-1.3) mg/dL Estim Creat Clear Calc 63 ml/min Estimated GFR > 60 (59 - ) Glucose 191 H (65-110) mg/dL Lactic Acid 9.6 H* (0.7-2.0) mmol/L Calcium 9.0 (8.4-10.2) mg/dL Total Bilirubin 0.5 (0.2-1.3) mg/dL AST 334 H (17-59) U/L ALT 203 H (6-50) U/L Alkaline Phosphatase 80 (38-126) U/L Troponin I 0.414 H* (0.000-0.034) ng/mL Total Protein 6.0 L (6.3-8.2) g/dL Albumin 3.5 (3.5-5.1) g/dL Triglycerides 159 H (<150) mg/dL Cholesterol 107 (0-200) mg/dL LDL Cholesterol Direct 55 mg/dL HDL Direct 36 mg/dL Blood Type O Positive Antibody Screen Negative ECG Data EKG #1: ECG completion date: 07/05/24 Ischemic changes: acute STEMI EKG Interpretation: normal rate (67), atrial fibrillation, ST depression (I, aVL, V1-2) and ST elevation (II/III/aVF) Critical Care Time Critical Care Time Critical Care Time: Yes Total Critical Care Time: 45 Discharge Plan Discharge Clinical Impression: ST elevation (STEMI) myocardial infarction Patient Disposition: Still a Patient Condition: Critical
--- NOTE | 2024-07-05 21:16 | WPDCARDPROC ---
Cardiac Cath Procedure Note Date of procedure:: 07/05/24 Performing physician:: Mateus Mayberry MD Procedure Procedure performed:: EMERGENT CARDIAC CATHETERIZATION AND PERCUTANEOUS CORONARY INTERVENTION REPORT DATE OF PROCEDURE: 07/05/2024 INDICATION FOR PROCEDURE: ACUTE CORONARY SYNDROME /INFERIOR ST-ELEVATION OK COMPLICATED BY VFIB CARDIAC ARREST -SUCCESSFULLY RESUSCITATED BRIEF CLINICAL HISTORY: 74-year-old male with hypertension, dyslipidemia, rheumatoid arthritis. No known prior cardiac history. Patient was brought to [facility] Emergency Room on 07/05/2024 via EMS with complaints of chest pain that according to patient started about an hour echo. EMS was summoned. He had an episode of loss of consciousness , and based on the report provided by the ER physician, patient had VFib arrest and was resuscitated as per ACLS protocol and shocked x1 and was given IV amiodarone. He was brought to the emergency room promptly, and patient had ROSC. He was alert in the emergency room. EKG showed underlying atrial fibrillation, ST-elevation in the inferior leads, QRS widening. Patient was brought to the cardiac engineering laboratory technician emergently. At the time of evaluation in the engineering laboratory technician, patient had ongoing chest pain. While patient was getting drape, he had 1 more episode of VFib arrest, and was successfully shocked x1 with hoahaoism of sinus rhythm. PROCEDURES PERFORMED: 1. EMERGENT Left heart catheterization- Selective left and right coronary angiogram; left ventriculogram and hemodynamic assessment 2. Primary percutaneous coronary intervention- a) balloon angioplasty and stenting of subtotal occlusion of proximal segment of dominant left circumflex artery using a 3.5 x 18 mm Biotronik sirolimus eluting stent with hoahaoism of JUD 3 flow; b) intravascular ultrasound of left circumflex artery 3. Deployment of Mynx hemostatic device 4. Moderate sedation-CPT code 99748 and beyond MODERATE SEDATION: Midazolam 0.5 mg; fentanyl 25 mcg. Start time 2025 , Stop time 2058 ; Total vppb-vh-yjsb time 33 minutes; Silvana Stout RN was trained observer for moderate sedation. ACCESS SITE: Right common femoral artery PROCEDURE NOTE: patient was emergently brought to catheterization lab and prepped and draped in a usual sterile manner. While patient was on the cath table getting draped, he had 1 more episode of VFib cardiac arrest, and was successfully shocked x1. After local anesthesia with lidocaine, right common femoral artery access was taken with micropuncture needle followed by insertion of a 6 Swedish sheath. Selective left and right coronary angiogram was performed using 5 Swedish JL4 and JR4 catheters respectively. Orthogonal views were taken . After completion of PCI, a 5 Swedish pigtail catheter was advanced in the LV cavity and was flushed with normal saline. LV pressure measurement was performed. After this, left ventriculogram was performed. The catheter was flushed again, and gradient across the aortic valve was measured on the pullback of the catheter. After completion of procedure, Mynx vascular closure device was deployed with good hemostasis. There were no immediate procedure related complications. FINDINGS: LEFT MAIN CORONARY: medium caliber vascular , no significant focal stenosis. LEFT ANTERIOR DESCENDING ARTERY: LAD is a small to medium caliber vessel with mild plaque in the proximal -mid segment. The vessel tapers distally and becomes a smaller caliber vessel. There is eccentric about 30-40% stenosis in the upper part of the distal segment. Major diagonal branch is a medium caliber vessel without significant focal stenosis. LEFT CIRCUMFLEX ARTERY: Left circumflex artery is a medium to large caliber, dominant vessel. There is high-grade, about 95 -99% eccentric, thrombotic stenosis in the proximal segment with JUD 2 flow. The distal LCX has about 30-40% stenosis. LCX gives rise to smaller caliber OM1 and OM2 branches; medium caliber OM3 branch which has mild plaque in the proximal and mid segment; and small to medium caliber OM 4 and LPDA branches. RIGHT CORONARY ARTERY: Smaller caliber, non dominant vessel with about 60-70% stenosis in the mid segment. LEFT VENTRICULOGRAM: Severe LV systolic dysfunction with akinetic mid -distal anterior wall, apical and inferior apical segments; basal segments relatively preserved. A ejection fraction approximately 25-30%. LVEDP elevated at 20 mmHg. HEMODYNAMIC ASSESSMENT: Opening pressure 72/44 mmHg , closing pressure 86/46 mmHg , LVEDP 20 mmHg; no significant gradient across aortic valve on the pullback of pigtail catheter. INTERVENTION REPORT: left main coronary artery ostium was selectively engaged using 6 Swedish 3.5 CLS guide catheter. Patient had already received aspirin, was given loading dose of ticagrelor 180 mg in the engineering laboratory technician. Bivalirudin was used for procedural anticoagulation. Subtotal thrombotic occlusion in the proximal LCX was crossed using 0.014 airplane pilot supervisor 150 wire. balloon angioplasty was performed using a 2.5 x 10 mm balloon. next, IVUS was performed which showed distal reference diameter 3.1 x 3.3 mm, proximal reference diameter of 4.1 x 4.3 mm. Next, a 3.5 x 18 mm Biotronik sirolimus eluting stent was deployed at nominal pressure. Next, postdilatation was performed using 4.0 x 8 mm noncompliant balloon at high inflation pressures with proximal optimization of the stent. IVUS showed reasonable stent apposition in the mid distal segment of the stent. Additional postdilation was provided in the proximal part of the stent to prevent any distal embolization in the setting of acute OK. There was hoahaoism of JUD 3 flow . After this, left ventriculogram was performed as described above. Finally, Mynx vascular closure device was deployed with supplemental manual pressure with good hemostasis. CONCLUSIONS: 1. 95-99% eccentric, thrombotic occlusion of proximal segment of dominant left circumflex artery (infarct related vessel); 30-40% stenosis distal LCX. 2. Severe LV systolic dysfunction with akinesis of mid-distal anterior wall, apical and inferior apical segments; basal segments relatively preserved, ejection fraction about 25-30%; LVEDP 20 mmHg. 3. Primary PCI -IVUS, PTCA / stenting of proximal segment of LCX using a 3.5 x 18 mm Biotronik sirolimus eluting stent with hoahaoism of JUD 3 flow. PLAN/RECOMMENDATIONS: - Admit to ICU . Telemetry monitoring for any recurrent post [place] arrhythmias. - dual antiplatelet therapy with aspirin and ticagrelor; high-dose atorvastatin. Beta-hugo, ACEI or ARB when Blood pressure allows. - echo Doppler with contrast to reassess LV function, rule out major structural abnormalities and LV thrombus. - Labs including CBC, CMP, lipid panel, lactate, HbA1c - External wearable defibrillator (lifevest) at discharge. - patient, his family and ICU physician updated. This document was completed by using [employer] speech recognition software, therefore, reimbursement rep variances may occur.
--- NOTE | 2024-07-05 21:20 | PC.NURSE ---
2109 Report received from NILSA Diaz.
--- NOTE | 2024-07-05 21:47 | ADMGEN ---
This patient, Michael Barrios, was admitted to Intensive Care Unit-4. Patient/family oriented to hospital policies and general routines including ID bracelet, bed and alarms, visiting hours, pain management, procedures, bathroom and other care routines, personal items, smoking policy, room service/diet, and visiting hours. Information on how to activate the Rapid Response Team has been discussed. Patient/Family are encouraged to report perceived risks to care and to ask questions if they do not understand what they are told or what they should do.
--- NOTE | 2024-07-05 22:12 | PC.NURSE ---
Admission complete; Report to NILSA Yanez.
--- NOTE | 2024-07-05 22:14 | ECG_ITS ---
Test Date: 2024-07-05 21:55:49 Measurements Intervals [place] Rate: 74 P: 35 NE: 172 QRS: -89 QRSD: 160 T: 48 QT: 448 QTc: 500 Interpretive Statements SINUS RHYTHM RIGHT BUNDLE BRANCH BLOCK [120+ ms QRS DURATION, UPRIGHT V1, 40+ ms S IN I/aVL/V4/V5/V6] LEFT ANTERIOR FASCICULAR BLOCK [QRS AXIS <= -45, QR IN I, RS IN II] ST DEVIATION AND MODERATE T-WAVE ABNORMALITY, CONSIDER LATERAL ISCHEMIA [-0.1+ mV T WAVE IN I/aVL/V5/V6] INFERIOR INFARCT, RECENT INTERPRETATION BASED ON A DEFAULT AGE OF 40 YEARS Compared to ECG 07/05/2024 19:52:17 Right bundle-branch block now present Atrial fibrillation no longer present3 Inferior ST elevations improved Electronically Signed On 07-06-2024 16:12:59 MANAGER FILE by Jose Alberto Casillas M.D.
[2024-07-05] MEDS: ATORVASTATIN 40 MG TABLET 80 MG PO (22:29)
[2024-07-05] MEDS: SODIUM CHLORIDE 0.9% IV 1,000 ML 75 ML IV CONT (22:31)
[2024-07-05] MEDS: PANTOPRAZOLE SODIUM IV 40 MG VIAL IV PUSH (22:33)
[2024-07-05 23:10] LABS: Reflex Lactic Acid Yes or No Add Lactic
[2024-07-06] VITALS (25 sets, daily range): BP systolic 64–128; BP diastolic 39–71; PULSE 67–88; RESP 16–27; TEMP 36.3–36.7; O2SAT 92–97
--- NOTE | 2024-07-06 | ECHO_ITS ---
Patient Info Name: Michael Barrios Age: 74 years : 1950 Gender: Male Ht: 68 in Wt: 170 lbs BSA: 1.94 m2 HR: 88 bpm BP: 90 / 60 mmHg Heart Rhythm: Sinus Rhythm Technical Quality: Good Exam Date: 07/06/2024 10:39 AM Site Location: ICU 4 Exam Location: Echo Lab Patient Status: Inpatient Admit Date: 07/05/2024 Staff Ordering Physician: Mateus Mayberry MD [employer]ographic Information Systems Director: Mary Mtz RDCS Attending Provider: Mateus Mayberry MD Referring Physician: SWATHI; Exam Type: CA echo dop color flow w con Study Info Indications R/OLVthrombuswithcontrast - AcuteMI - Complete two-dimensional, color flow and Doppler transthoracic echocardiogram is performed with contrast to opacify the left ventricle and to improve the deliniation of the left ventricle endocardial borders. Summary 1. Left ventricular chamber dimension is normal. 2. Left ventricular systolic function is severely reduced, estimated at 20-25%. 3. The inferolateral wall is hypokinetic. The mid inferoseptum and mid anteroseptum is hypokinetic. The mid anterolateral wall, mid inferior wall, mid anterior wall, apex are akinetic. 4. There is no thrombus visualized in the left ventricle. 5. The left ventricular diastolic function is grade I diastolic dysfunction. 6. Right ventricular systolic function is normal. 7. Left atrial chamber dimension is moderately enlarged. 8. There is mild mitral valve regurgitation. 9. There is mild to moderate tricuspid valve regurgitation. Left Ventricle The inferolateral wall is hypokinetic. The mid inferoseptum and mid anteroseptum is hypokinetic. The mid anterolateral wall, mid inferior wall, mid anterior wall, apex are akinetic. Left ventricular chamber dimension is normal. Left ventricular systolic function is severely reduced, estimated at 20-25%. There is no increased left ventricular wall thickness. The left ventricular diastolic function is grade I diastolic dysfunction. There is no thrombus visualized in the left ventricle. Right Ventricle Right ventricular chamber dimension is normal. Right ventricular systolic function is normal. Left Atria Left atrial chamber dimension is moderately enlarged. Right Atria Right atrial chamber dimension is normal. Atrial Septum Intact interatrial septum visualized by color flow imaging. Aortic Valve The aortic valve is trileaflet. There is no aortic valve stenosis. There is no aortic valve regurgitation. There is mild aortic valve calcification. Pulmonic Valve The pulmonic valve is not well visualized. There is trace pulmonic regurgitation. Mitral Valve There is mild mitral valve regurgitation. Tricuspid Valve There is mild to moderate tricuspid valve regurgitation. Pericardium/Pleural The pericardium appears epicardial fat pad. There is no pericardial effusion. Inferior Vena Cava Dilated inferior vena cava with >50% collapse upon inspiration consistent with elevated right atrial pressure, 8 mmHg. Aorta The aortic root size at the sinus of Valsalva is normal. Left Ventricular Outflow Tract Name Value Normal LVOT 2D LVOT Diameter 2.50 cm LVOT Doppler LVOT Peak Gradient 3 mmHg LVOT Mean Gradient 1 mmHg LVOT VTI 16.93 cm LVOT VTI/AV VTI Ratio 1.08 LVOT Stroke Volume 82.94 ml LVOT CO 5.66 l/min LVOT CI 2.92 L/min/m2 Pulmonic Valve Name Value Normal PV Doppler PV Peak Gradient 2 mmHg PV Regurgitation Doppler NC Peak End Diastolic Velocity 151.92 cm/s Mitral Valve Name Value Normal MV Doppler MV Decel Wetzel 530.13 cm/s2 MV PHT 0 s MV Area (PHT) 5.94 cm2 4.00-5.00 MV Regurgitation Doppler MR Peak Gradient 66 mmHg MV Diastolic Function MV E Peak Velocity 67.73 cm/s MV A Peak Velocity 57.52 cm/s MV E/A 1.18 MV Decel Time 0 s MV Annular TDI MV E/e' (Septal) 11.00 <=8.00 MV E/e' (Lateral) 9.73 <=8.00 MV E/e' (Average) 10.36 Tricuspid Valve Name Value Normal TV Regurgitation Doppler TR Peak Velocity 365.51 cm/s TR Peak Gradient 53 mmHg Estimated PAP/RSVP RA Pressure 8 mmHg <=5 PA Systolic Pressure 61 mmHg <36 RV Systolic Pressure 61 mmHg <36 Aortic Valve Name Value Normal AV Doppler AV Peak Velocity 90.63 cm/s AV Peak Gradient 3 mmHg AV Mean Gradient 2 mmHg AV VTI 15.71 cm AV Area (Cont Eq VTI) 5.28 cm2 >=3.00 AV Area (Cont Eq Cal) 4.46 cm2 AV Regurgitation 2D LVOT Area 4.90 cm2 Ventricles Name Value Normal LV Dimensions 2D/MM IVS Diastolic Thickness (2D) 0.78 cm 0.60-1.00 LVID Diastole (2D) 5.81 cm 4.20-5.80 LVIW Diastolic Thickness (2D) 0.78 cm 0.60-1.00 LVID Systole (2D) 4.77 cm 2.50-4.00 LVOT Diameter 2.50 cm LV Mass (2D Cubed) 170.72 g 88.00-224.00 LV Mass Index (2D Cubed) 0.01 g/cm2 0.00-0.01 Relative Wall Thickness (2D) 0.27 LV Fractional Shortening/Ejection Fraction 2D/MM LV Fractional Shortening (2D) 18 % 25-43 LV EF (2D [place]) 37 % 52-72 LV Diastolic Volume (4C MOD) 168.62 ml LV EF (4C MOD) 14 % LV Diastolic Volume (2C MOD) 173.39 ml LV EF (2C MOD) 16 % LV Diastolic Volume (BP MOD) 172.78 ml 62.00-150.00 LV Diastolic Volume Index (BP MOD) 0.09 l/m2 0.03-0.07 LV Systolic Volume (BP MOD) 144.87 ml 21.00-61.00 LV Systolic Volume Index (BP MOD) 0.07 l/m2 0.01-0.03 LV EF (BP MOD) 16 % 52-72 LV Diastolic Length (4C) 9.10 cm LV Systolic Length (4C) 8.48 cm LV Stroke Volume (4C MOD) 22.89 ml Atria Name Value Normal LA Dimensions LA Dimension (2D) 4.16 cm 3.00-4.10 LA Dimen Index (2D) 2.15 cm/m2 LA Volume (4C A-L) 74.14 ml LA Volume (BP A-L) 79.44 ml RA Dimensions RA Area (4C) 15.87 cm2 <=18.00 Report Signatures
[2024-07-06 00:21] LABS: Lactic Acid 3.1 mmol/L (0.7-2.0)
[2024-07-06] MEDS: TRIMETHOBENZAMIDE HCL 200 MG/2 ML VIAL IM (01:16)
[2024-07-06] MEDS: ALBUMIN HUMAN 25% 25 GM/100 ML 100 ML IVPB ×2 (01:20→14:08)
[2024-07-06] MEDS: NOREPINEPHRINE 8 MG/D5W 250 ML 8 MG/250 ML BAG 9.38 MG IV CONT (01:20)
[2024-07-06 05:16] LABS: MRSA (PCR) NOT DETECTED (NOT DETECTE)
[2024-07-06 09:16] LABS: Basophils Percent Auto 0.1 % (0.2-1.2); Hematocrit 36.6 % (42.0-52.0); Hemoglobin 11.8 g/dL (14.0-18.0); Immature Granulocyte Absolute 0.07 K/mm3 (0.00-0.031); Immature Granulocyte Percent A 0.6 % (0-0.5); Lymphocytes Absolute Auto 0.68 K/mm3 (0.9-3.2); Lymphocytes Percent Auto 5.5 % (18.3-44.2); Mean Corpuscular HGB Conc 32.2 g/dl (32-36); Mean Corpuscular Volume 89.9 fl (80-100); Mean Platelet Volume 9.7 fl (7.4-10.4); Monocytes Absolute Auto 1.1 K/mm3 (0.1-0.6); Monocytes Percent Auto 8.6 % (2.6-8.5); Neutrophils Absolute Auto 10.5 K/mm3 (1.3-6.7); Neutrophils Percent Auto 85.2 % (45.5-73.1); Platelet Count Result 268 k/mm3 (150-375); Red Blood Count 4.07 M/mm3 (4.6-6.20); White Blood Count 12.3 K/mm3 (4.5-10.0)
[2024-07-06] MEDS: TICAGRELOR 90 MG TABLET PO ×2 (09:23→20:37)
[2024-07-06] MEDS: ASPIRIN 81 MG ENTERIC TABLET PO (09:23)
[2024-07-06] MEDS: PANTOPRAZOLE SODIUM IV 40 MG VIAL IV PUSH (09:23)
[2024-07-06 09:27] LABS: Alanine Aminotransferase 184 U/L (6-50); Albumin Level 3.7 g/dL (3.5-5.1); Alkaline Phosphatase 68 U/L (38-126); Anion Gap 5 mmol/L (4-12); Aspartate Amino Transferase 289 U/L (17-59); Blood Urea Nitrogen 18 mg/dL (9-20); Calcium 9.2 mg/dL (8.4-10.2); Carbon Dioxide 27 mmol/L (22-30); Chloride 107 mmol/L (98-107); Estimated CRCL calculation 74 ml/min; Estimated Glomerular Filt Rate > 60; Glucose 104 mg/dL (65-110); Magnesium 1.8 mg/dL (1.6-2.3); Potassium 4.4 mmol/L (3.4-5.0); Sodium 139 mmol/L (137-145)
[2024-07-06 09:36] LABS: NT Pro B Type Natriuretic Pept 6690 pg/mL (19.9-100)
[2024-07-06] MEDS: FUROSEMIDE INJ 40 MG/4 ML VIAL 20 MG IV PUSH (10:30)
[2024-07-06] MEDS: PERFLUTREN LIPID MICROSPHERES 1.5 ML VIAL DILUTED TO 10 ML TOTAL VOLUME IV PUSH (11:00)
--- NOTE | 2024-07-06 11:40 | P.PNCA_ITS ---
Progress Note: A&P Assessment and Plan (1) ST elevation (STEMI) myocardial infarction: Code(s): I21.3 - ST elevation (STEMI) myocardial infarction of unspecified site Status: Acute Assessment and Plan: Cardiac catheterization showed: 1. 95-99% eccentric, thrombotic occlusion of proximal segment of dominant left circumflex artery (infarct related vessel); 30-40% stenosis distal LCX. 2. Severe LV systolic dysfunction with akinesis of mid-distal anterior wall, apical and inferior apical segments; basal segments relatively preserved, ejection fraction about 25-30%; LVEDP 20 mmHg. 3. Primary PCI -IVUS, PTCA / stenting of proximal segment of LCX using a 3.5 x 18 mm Biotronik sirolimus eluting stent with gnosticist of JUD 3 flow. Continue ASA 81mg once daily indefinitely. Continue Brilinta 90mg BID for at least 1 year. Continue high intensity statin. (2) Shock: Code(s): R57.9 - Shock, unspecified Status: Acute Assessment and Plan: Was requiring Levophed overnight, currently off of pressors. Shock likely cardiogenic in setting of AMI. (3) Acute heart failure with reduced ejection fraction (HFrEF, <= 40%): Code(s): I50.21 - Acute systolic (congestive) heart failure Status: Acute Assessment and Plan: LV angiogram on cardiac catheterization showed severe LV systolic dysfunction with akinesis of mid-distal anterior wall, apical and inferior apical segments; basal segments relatively preserved, ejection fraction about 25-30%; LVEDP 20 mmHg. Echocardiogram ordered and pending. Will give a one time dose of IV Lasix today. As Levophed was just stopped earlier this morning, will hold off on starting heart failure GDMT. Plan to start later this evening or tomorrow if blood pressures remain stable. Life Vest ordered. (4) Essential hypertension: Code(s): I10 - Essential (primary) hypertension Status: Acute Assessment and Plan: As Levophed was just stopped earlier this morning, will hold off on starting heart failure GDMT. Plan to start later this evening or tomorrow if blood pressures remain stable. (5) Hyperlipidemia: Code(s): E78.5 - Hyperlipidemia, unspecified Status: Acute Assessment and Plan: Continue high intensity statin. Subjective Date/time seen: 12/17/24 11:40 Interval history: Reason for visit: STEMI HPI: 74-year-old male with hypertension, dyslipidemia, rheumatoid arthritis. No known prior cardiac history. Patient was brought to [facility] Room on 07/05/2024 via EMS with complaints of chest pain that according to patient started about an hour echo. EMS was summoned. He had an episode of loss of consciousness , and based on the report provided by the ER physician, patient had VFib arrest and was resuscitated as per ACLS protocol and shocked x1 and was given IV amiodarone. He was brought to the emergency room promptly, and patient had ROSC. He was alert in the emergency room. EKG on my personal interpretation showed underlying atrial fibrillation, ST-elevation in the inferior leads, QRS widening. Patient was brought to the cardiac lab manager emergently. At the time of evaluation in the lab manager, patient had ongoing chest pain. While patient was getting drape, he had 1 more episode of VFib arrest, and was successfully shocked x1 with gnosticist of sinus rhythm. Emergent coronary angiogram showed subtotal thrombotic occlusion of proximal LCX ( left circumflex artery is dominant vessel) - infarct related vessel. He underwent primary PCI / MIRANDA x1 proximal LCX with gnosticist of flow. Date of service 07/06: Feeling well this morning. Was on Levophed overnight, but stopped around 5:45AM. Review of Systems Review of Systems: All systems reviewed & are unremarkable except as noted in HPI and below (HPI) Exam Const: General: no acute distress HENMT: Mouth: Yes moist mucous membranes Eyes: General: appearance normal, both eyes and all related structures Sclera: sclerae normal Resp: Effort & Inspection: normal respiratory effort Auscultation: clear to auscultation bilaterally Other: On supplemental oxygen Cardio: Rate: regular rate Rhythm: regular rhythm Heart sounds: no murmurs Skin: General skin exam: normal color Neuro: Speech: normal speech Psych: Mental Status: mental status grossly normal Affect: normal affect Objective Data Vital Signs Vital Signs: Vital Signs - 24 hr 07/05/24 19:43 07/05/24 20:00 07/05/24 20:01 Temperature Pulse Rate 66 94 Pulse Rate [Bilateral Pedal (Dorsalis Pedis)] Respiratory Rate 37 H 32 H Blood Pressure 96/72 L 114/66 Pulse Oximetry 87 L 87 L 88 L Oxygen Delivery Nasal Cannula Nasal Cannula Oxygen Flow Rate 7 7 07/05/24 21:25 07/05/24 21:36 07/05/24 21:40 Temperature 36.2 C L Pulse Rate 89 89 89 Pulse Rate [Bilateral Pedal (Dorsalis Pedis)] 89 89 Respiratory Rate 15 18 Blood Pressure Pulse Oximetry 100 100 Oxygen Delivery Oxygen Flow Rate 07/05/24 21:45 07/05/24 22:00 07/05/24 22:00 Temperature Pulse Rate 75 75 Pulse Rate [Bilateral Pedal (Dorsalis Pedis)] Respiratory Rate 23 H Blood Pressure 155/121 H Pulse Oximetry 100 95 Oxygen Delivery Nasal Cannula Oxygen Flow Rate 6 07/05/24 22:10 07/05/24 22:15 07/05/24 22:40 Temperature Pulse Rate 75 72 71 Pulse Rate [Bilateral Pedal (Dorsalis Pedis)] 75 71 Respiratory Rate 24 H 27 H 18 Blood Pressure 155/121 H 144/123 H 68/52 L Pulse Oximetry 95 94 96 Oxygen Delivery Oxygen Flow Rate 07/05/24 22:47 07/05/24 22:50 07/05/24 23:00 Temperature Pulse Rate 71 76 72 Pulse Rate [Bilateral Pedal (Dorsalis Pedis)] 72 Respiratory Rate 19 25 H 18 Blood Pressure 68/52 L 80/51 L 75/55 L Pulse Oximetry 96 93 93 Oxygen Delivery Oxygen Flow Rate 07/05/24 23:00 07/05/24 23:15 07/05/24 23:30 Temperature Pulse Rate 72 71 71 Pulse Rate [Bilateral Pedal (Dorsalis Pedis)] Respiratory Rate 18 18 18 Blood Pressure 75/55 L 76/55 L 78/59 L Pulse Oximetry 93 93 95 Oxygen Delivery Oxygen Flow Rate 07/05/24 23:45 07/06/24 00:00 07/06/24 00:00 Temperature 36.4 C L 36.4 C L Pulse Rate 72 73 71 Pulse Rate [Bilateral Pedal (Dorsalis Pedis)] 73 Respiratory Rate 23 H 26 H 23 H Blood Pressure 85/60 L 77/48 L 77/48 L Pulse Oximetry 93 95 94 Oxygen Delivery Oxygen Flow Rate 07/06/24 00:00 07/06/24 00:00 07/06/24 01:20 Temperature Pulse Rate 71 71 88 Pulse Rate [Bilateral Pedal (Dorsalis Pedis)] Respiratory Rate 23 H Blood Pressure 90/60 L Pulse Oximetry 94 Oxygen Delivery Nasal Cannula Oxygen Flow Rate 6 07/06/24 02:00 07/06/24 02:00 07/06/24 02:00 Temperature Pulse Rate 74 74 74 Pulse Rate [Bilateral Pedal (Dorsalis Pedis)] Respiratory Rate 21 H Blood Pressure 101/62 101/62 Pulse Oximetry 95 Oxygen Delivery Oxygen Flow Rate 07/06/24 02:02 07/06/24 02:17 07/06/24 02:47 Temperature Pulse Rate 74 78 73 Pulse Rate [Bilateral Pedal (Dorsalis Pedis)] 73 73 73 Respiratory Rate 21 H 23 H 17 Blood Pressure 101/62 103/64 104/67 Pulse Oximetry 95 96 97 Oxygen Delivery Oxygen Flow Rate 07/06/24 03:00 07/06/24 03:17 07/06/24 03:45 Temperature Pulse Rate 77 73 77 Pulse Rate [Bilateral Pedal (Dorsalis Pedis)] 73 Respiratory Rate 16 Blood Pressure 112/66 97/65 L 102/63 Pulse Oximetry 97 Oxygen Delivery Oxygen Flow Rate 07/06/24 04:00 07/06/24 04:00 07/06/24 04:00 Temperature 36.4 C Pulse Rate 76 76 76 Pulse Rate [Bilateral Pedal (Dorsalis Pedis)] Respiratory Rate 22 H 22 H Blood Pressure 84/57 L Pulse Oximetry 95 95 Oxygen Delivery Nasal Cannula Oxygen Flow Rate 6 07/06/24 04:17 07/06/24 05:00 07/06/24 05:17 Temperature Pulse Rate 72 67 72 Pulse Rate [Bilateral Pedal (Dorsalis Pedis)] 73 72 Respiratory Rate 18 20 Blood Pressure 64/39 L 99/52 L 103/64 Pulse Oximetry 97 97 Oxygen Delivery Oxygen Flow Rate 07/06/24 05:45 07/06/24 06:00 07/06/24 06:00 Temperature Pulse Rate 73 73 73 Pulse Rate [Bilateral Pedal (Dorsalis Pedis)] Respiratory Rate 25 H Blood Pressure 101/59 L 65/42 L Pulse Oximetry 97 Oxygen Delivery Oxygen Flow Rate 07/06/24 06:17 07/06/24 08:00 07/06/24 08:00 Temperature 36.3 C L Pulse Rate 72 72 Pulse Rate [Bilateral Pedal (Dorsalis Pedis)] 72 72 Respiratory Rate 18 23 H Blood Pressure 83/63 L 100/60 Pulse Oximetry 97 97 Oxygen Delivery Oxygen Flow Rate 07/06/24 08:00 07/06/24 08:00 07/06/24 08:00 Temperature Pulse Rate 73 72 Pulse Rate [Bilateral Pedal (Dorsalis Pedis)] Respiratory Rate Blood Pressure 100/60 Pulse Oximetry 95 Oxygen Delivery Nasal Cannula Oxygen Flow Rate 5 07/06/24 10:00 07/06/24 10:00 07/06/24 10:00 Temperature 36.7 C Pulse Rate 72 72 73 Pulse Rate [Bilateral Pedal (Dorsalis Pedis)] Respiratory Rate 24 H Blood Pressure 105/62 97/60 L Pulse Oximetry 95 Oxygen Delivery Oxygen Flow Rate Intake/Output Intake/Output: Intake & Output 07/03/24 07/04/24 07/05/24 07/06/24 23:59 23:59 23:59 23:59 Intake Total 1484.1 Output Total 300 Balance 1184.1 Meds/Results Medications: Active Medications Generic Name Dose Route Start Last Admin Trade Name Freq PRN Reason Stop Dose Admin Aspirin 81 mg 07/06/24 09:00 07/06/24 09:23 Aspirin 81 Mg Enteric Tablet PO 81 mg QAM DOMINIQUE Administration Atorvastatin Calcium 80 mg 07/06/24 21:00 Atorvastatin 40 Mg Tablet PO HS DOMINIQUE Enoxaparin Sodium 40 mg 07/07/24 09:00 Enoxaparin 40 Mg/0.4 Ml Syringe SUB-Q DAILY DOMINIQUE Albumin Human 100 mls @ 60 mls/hr 07/06/24 06:00 07/06/24 03:00 Albutein IVPB 07/06/24 13:39 Infused Q6HR DOMINIQUE Infusion Norepinephrine Bitartrate 8 mg in 250 mls @ 0 mls/hr 07/06/24 00:40 07/06/24 10:00 Levophed 8 Mg/D5w 250 Ml IV CONT 0 mcg/min .Q0M DOMINIQUE 0 mls/hr Titration Protocol Pantoprazole Sodium 40 mg 07/06/24 09:00 07/06/24 09:23 Pantoprazole Sodium Iv 40 Mg Vial IV PUSH 40 mg QAM DOMINIQUE Administration Perflutren Lipid Microsphere 0 ml 07/05/24 21:34 Perflutren Lipid Microspheres 1.5 Ml Vial Diluted To 10 Ml Total Volume IV PUSH 07/08/24 21:34 ONCE PRN adequate visualization Protocol Ticagrelor 90 mg 07/06/24 09:00 07/06/24 09:23 Ticagrelor 90 Mg Tablet PO 90 mg Q12HR DOMINIQUE Administration Radiology Results: ITS Impressions Chest X-Ray 07/05/24 20:29 IMPRESSION: 1. Diffuse lung disease, consistent with pulmonary edema versus pneumonia. Labs Labs: Laboratory Results - last 24 hr 07/05/24 07/05/24 07/06/24 20:05 20:07 00:04 WBC 14.4 H RBC 4.44 L Hgb 13.1 L Hct 41.7 L MCV 93.9 MCH 29.5 MCHC 31.4 L RDW 14.6 H Plt Count 373 MPV 10.1 Immature Gran % (Auto) 4.6 H Neut % (Auto) 62.7 Lymph % (Auto) 28.8 Cooper % (Auto) 2.4 L Eos % (Auto) 0.9 Baso % (Auto) 0.6 Lymph # (Auto) 4.14 H Cooper # (Auto) 0.4 Eos # (Auto) 0.1 Baso # (Auto) 0.1 Abs Immat Gran (auto) 0.66 H Absolute Neuts (auto) 9.0 H Absolute Nucleated RBC 0.000 Nucleated RBC % 0.0 PT 15.4 H INR 1.2 APTT 27.0 Sodium 138 Potassium 3.4 Chloride 107 Carbon Dioxide 19 L Anion Gap 12 BUN 18 Creatinine 0.90 Estim Creat Clear Calc 63 Estimated GFR > 60 Glucose 191 H Lactic Acid 9.6 H* 3.1 H Calcium 9.0 Magnesium Total Bilirubin 0.5 AST 334 H ALT 203 H Alkaline Phosphatase 80 Troponin I 0.414 H* NT-Pro-B Natriuret Pep Total Protein 6.0 L Albumin 3.5 Triglycerides 159 H Cholesterol 107 LDL Cholesterol Direct 55 HDL Direct 36 TSH (Reflex) Nasal MRSA (PCR) Blood Type O Positive Antibody Screen Negative 07/06/24 07/06/24 03:57 09:08 WBC 12.3 H RBC 4.07 L Hgb 11.8 L Hct 36.6 L MCV 89.9 MCH 29.0 MCHC 32.2 RDW 15.0 H Plt Count 268 MPV 9.7 Immature Gran % (Auto) 0.6 H Neut % (Auto) 85.2 H Lymph % (Auto) 5.5 L Cooper % (Auto) 8.6 H Eos % (Auto) 0.0 Baso % (Auto) 0.1 L Lymph # (Auto) 0.68 L Cooper # (Auto) 1.1 H Eos # (Auto) 0.0 Baso # (Auto) 0.0 Abs Immat Gran (auto) 0.07 H Absolute Neuts (auto) 10.5 H Absolute Nucleated RBC 0.000 Nucleated RBC % 0.0 PT INR APTT Sodium 139 Potassium 4.4 Chloride 107 Carbon Dioxide 27 Anion Gap 5 BUN 18 Creatinine 0.70 Estim Creat Clear Calc 74 Estimated GFR > 60 Glucose 104 Lactic Acid Calcium 9.2 Magnesium 1.8 Total Bilirubin 1.0 AST 289 H ALT 184 H Alkaline Phosphatase 68 Troponin I NT-Pro-B Natriuret Pep 6690 H Total Protein 6.0 L Albumin 3.7 Triglycerides Cholesterol LDL Cholesterol Direct HDL Direct TSH (Reflex) 0.470 Nasal MRSA (PCR) Not detected Blood Type Antibody Screen
--- NOTE | 2024-07-06 11:53 | P.CONIN_ITS ---
Assessment and Plan Assessment and plan (1) ST elevation (STEMI) myocardial infarction: Code(s): I21.3 - ST elevation (STEMI) myocardial infarction of unspecified site Status: Acute Assessment and Plan: Status post balloon angioplasty and stenting of subtotal occlusion of proximal segment of dominant left circumflex artery using a 3.5 x 18 mm Biotronik sirolimus eluting stent with jewish of JUD 3 flow Aspirin, Brilinta, statin Low-dose Lasix IV for congestive heart failure Hold beta-hugo and Zachariah due to the hypotension ICU telemetry monitoring Check echocardiogram (2) Hypotension: Code(s): I95.9 - Hypotension, unspecified Status: Acute Assessment and Plan: Patient had hypotension postprocedure which has now resolved. Patient was started on Levophed for brief period of time but has been weaned off. Monitor Hold beta-hugo and Zachariah (3) Congestive heart failure: Code(s): I50.9 - Heart failure, unspecified Status: Acute Assessment and Plan: Patient had elevated LVEDP on the cardiac catheterization Chest x-ray also showed mild congestion Echo pending Lasix IV 20 mg x1 (4) Ventricular fibrillation: Code(s): I49.01 - Ventricular fibrillation Status: Acute Assessment and Plan: Status post defibrillation x2 likely secondary to ischemia. Telemetry monitoring Echocardiogram pending Replace low magnesium Plan DVT prophylaxis -Lovenox Stress ulcer prophylaxis -PPI Nutrition -diet ordered Code Status - Full Code Total Critical Care Time -35 minutes Due to a high probability of clinically significant, life threatening deterioration, the patient required my highest level of preparedness to intervene emergently and I personally spent this critical care time directly and personally managing the patient. This critical care time included obtaining a history; examining the patient; pulse oximetry; ordering and review of studies; arranging urgent treatment with development of a management plan; evaluation of patient's response to treatment; frequent reassessment; and discussions with other providers. It was exclusive of separately billable procedures and treating other patients and teaching time. 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 Patient states that he was working outside trying to put his boat on the trailer and started having mild chest pain in the middle of the chest he rated at a 4/10 pressure-like quality no radiation. He states that he started having shortness of breath. He had nausea with 1 episode of vomiting. [place] dizzy and lytes and then he does not remember what happened following that.. As per EMS report patient had a VFib arrest and received CPR and defibrillated x1. Patient was also given IV amiodarone. Patient on arrival to ER was alert awake. EKG showed AFib with ST elevation in inferior leads. Patient was taken to cardiac catheterization lab where he underwent cardiac catheterization. Patient had 1 episode of VFib arrest during cardiac catheterization and was defibrillated x 1. Catheterization showed subtotal thrombotic occlusion of proximal left circumflex and a stent was placed with jewish of flow. Post procedure patient was admitted to ICU for further evaluation management. At this time patient states he is feeling much better and denies any specific complaints. He states his chest pain has resolved. He denies any shortness of breath nausea vomiting chest pain cough dizziness or lightheadedness.. Review of system was positive for chronic joint pains from rheumatoid arthritis. Patient denies any orthopnea PND dyspnea exertion or chest pain on exertion. All other systems reviewed were negative Patient states that he does take prednisone p.r.n. for his joint pain at 2.5 mg but has not taken any dose in multiple days. Patient recently resume his methotrexate dose for his rheumatoid arthritis. Review of Systems 2 Review of Systems: All systems reviewed & are unremarkable except as noted in HPI and below (HPI) [facility] Past Medical History Medical History Iron deficiency anemia Marci-Richards tear (11/2019) Rheumatoid arthritis (2014) Prostate cancer (2009) received 38 treatments of external beam radiation Non-Hodgkin lymphoma (05/2019) Hemorrhoids Colon polyps Gastroesophageal reflux disease Hyperlipidemia Essential hypertension Surgical History Surgical History History of esophagogastroduodenoscopy (11/2019) Marci-Richards tear History of cataract surgery Family History Family History Mother Congestive heart failure Sibling Malignant neoplasm of colon Sibling Malignant neoplasm of breast (female) Hodgkin lymphoma Sibling Malignant lung neoplasm Social History Social History Social History: Surrogate decision maker: Ct Barrios, spouse. Code status: Full code. Smoking packs per day: 1.5 Smoking cigarettes per day: 30.0 Years smoked: 40 Smoking pack-years: 60.00 Smoking status: Former smoker Alcohol intake: current Drinks per week: 5 Substance use: never Do You Feel Safe in your Home?: Yes Lack of Transportation: No Lack of Food: Never True Current Housing: I Do Not Have Housing Concerned About Future Housing: No Difficulty Paying Gas/Electric Bills: No Difficulty Paying for Meds: No Currently Unemployed: No Education: High School Diploma/GED Difficulty w/ Childcare or Family Care: No Additional living arrangements comments: Lives with spouse in [place]. Additional occupation/education comments: Retired from [employer]. 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 Spiritual care concerns: No Meds Home Medications and Allergies Home Medications ?Medication ?Instructions ?Recorded ?Confirmed ?Type cholecalciferol (vitamin D3) 50 50 mcg PO DAILY 12/18/19 07/05/24 History mcg (2,000 unit) capsule folic acid 1 mg tablet 1 mg PO DAILY 12/18/19 07/05/24 History atorvastatin 10 mg tablet 20 mg PO HS 05/07/24 07/05/24 History diclofenac potassium 25 mg capsule 75 mg PO BID 05/07/24 07/05/24 History ferrous sulfate 324 mg (65 mg 324 mg PO BID 05/07/24 07/05/24 History iron) tablet,delayed release hydroxychloroquine 200 mg tablet 200 mg PO BID 05/07/24 07/05/24 History methotrexate sodium 2.5 mg tablet 15 mg PO WEEKLY 05/07/24 07/05/24 History spmbkjkkvgzg-ohbbssze-aaicbl tablet 1 tablet PO DAILY 05/07/24 07/05/24 History omeprazole 20 mg tablet,delayed 20 mg PO DAILY flare ups of 05/07/24 07/05/24 History release arthritis phudlwkp-uq-zjtxg 300 mcg-K 60 1 tablet PO DAILY 06/14/24 07/05/24 History mcg-lycop 600 mcg-lutein 300 mcg tablet (Centrum Silver Men) prednisone 5 mg tablet 5 mg PO TID PRN arthritis 06/14/24 07/05/24 History atorvastatin 20 mg tablet 20 mg PO QPM 07/05/24 07/05/24 History diclofenac sodium 75 mg 75 mg PO Q12H 07/05/24 07/05/24 History tablet,delayed release prevagen 50 mcg PO DAILY 07/05/24 07/05/24 History ticagrelor 90 mg tablet (Brilinta) 90 mg PO Q12HR 30 days #60 tabs 07/06/24 Rx Allergies Allergy/AdvReac Type Severity Reaction Status Date / Time rosuvastatin Allergy Intermediate IRRITABLE Verified 07/05/24 22:04 simvastatin Allergy Intermediate IRRITABLE Verified 07/05/24 22:04 pravastatin Allergy Mild IRRITABLE Verified 07/05/24 22:04 Vital Signs Vital Signs - 24 hr 07/05/24 19:43 07/05/24 20:00 07/05/24 20:01 Temperature Pulse Rate 66 94 Pulse Rate [Bilateral Pedal (Dorsalis Pedis)] Respiratory Rate 37 H 32 H Blood Pressure 96/72 L 114/66 Pulse Oximetry 87 L 87 L 88 L Oxygen Delivery Nasal Cannula Nasal Cannula Oxygen Flow Rate 7 7 07/05/24 21:25 07/05/24 21:36 07/05/24 21:40 Temperature 36.2 C L Pulse Rate 89 89 89 Pulse Rate [Bilateral Pedal (Dorsalis Pedis)] 89 89 Respiratory Rate 15 18 Blood Pressure Pulse Oximetry 100 100 Oxygen Delivery Oxygen Flow Rate 07/05/24 21:45 07/05/24 22:00 07/05/24 22:00 Temperature Pulse Rate 75 75 Pulse Rate [Bilateral Pedal (Dorsalis Pedis)] Respiratory Rate 23 H Blood Pressure 155/121 H Pulse Oximetry 100 95 Oxygen Delivery Nasal Cannula Oxygen Flow Rate 6 07/05/24 22:10 07/05/24 22:15 07/05/24 22:40 Temperature Pulse Rate 75 72 71 Pulse Rate [Bilateral Pedal (Dorsalis Pedis)] 75 71 Respiratory Rate 24 H 27 H 18 Blood Pressure 155/121 H 144/123 H 68/52 L Pulse Oximetry 95 94 96 Oxygen Delivery Oxygen Flow Rate 07/05/24 22:47 07/05/24 22:50 07/05/24 23:00 Temperature Pulse Rate 71 76 72 Pulse Rate [Bilateral Pedal (Dorsalis Pedis)] 72 Respiratory Rate 19 25 H 18 Blood Pressure 68/52 L 80/51 L 75/55 L Pulse Oximetry 96 93 93 Oxygen Delivery Oxygen Flow Rate 07/05/24 23:00 07/05/24 23:15 07/05/24 23:30 Temperature Pulse Rate 72 71 71 Pulse Rate [Bilateral Pedal (Dorsalis Pedis)] Respiratory Rate 18 18 18 Blood Pressure 75/55 L 76/55 L 78/59 L Pulse Oximetry 93 93 95 Oxygen Delivery Oxygen Flow Rate 07/05/24 23:45 07/06/24 00:00 07/06/24 00:00 Temperature 36.4 C L 36.4 C L Pulse Rate 72 73 71 Pulse Rate [Bilateral Pedal (Dorsalis Pedis)] 73 Respiratory Rate 23 H 26 H 23 H Blood Pressure 85/60 L 77/48 L 77/48 L Pulse Oximetry 93 95 94 Oxygen Delivery Oxygen Flow Rate 07/06/24 00:00 07/06/24 00:00 07/06/24 01:20 Temperature Pulse Rate 71 71 88 Pulse Rate [Bilateral Pedal (Dorsalis Pedis)] Respiratory Rate 23 H Blood Pressure 90/60 L Pulse Oximetry 94 Oxygen Delivery Nasal Cannula Oxygen Flow Rate 6 07/06/24 02:00 07/06/24 02:00 07/06/24 02:00 Temperature Pulse Rate 74 74 74 Pulse Rate [Bilateral Pedal (Dorsalis Pedis)] Respiratory Rate 21 H Blood Pressure 101/62 101/62 Pulse Oximetry 95 Oxygen Delivery Oxygen Flow Rate 07/06/24 02:02 07/06/24 02:17 07/06/24 02:47 Temperature Pulse Rate 74 78 73 Pulse Rate [Bilateral Pedal (Dorsalis Pedis)] 73 73 73 Respiratory Rate 21 H 23 H 17 Blood Pressure 101/62 103/64 104/67 Pulse Oximetry 95 96 97 Oxygen Delivery Oxygen Flow Rate 07/06/24 03:00 07/06/24 03:17 07/06/24 03:45 Temperature Pulse Rate 77 73 77 Pulse Rate [Bilateral Pedal (Dorsalis Pedis)] 73 Respiratory Rate 16 Blood Pressure 112/66 97/65 L 102/63 Pulse Oximetry 97 Oxygen Delivery Oxygen Flow Rate 07/06/24 04:00 07/06/24 04:00 07/06/24 04:00 Temperature 36.4 C Pulse Rate 76 76 76 Pulse Rate [Bilateral Pedal (Dorsalis Pedis)] Respiratory Rate 22 H 22 H Blood Pressure 84/57 L Pulse Oximetry 95 95 Oxygen Delivery Nasal Cannula Oxygen Flow Rate 6 07/06/24 04:17 07/06/24 05:00 07/06/24 05:17 Temperature Pulse Rate 72 67 72 Pulse Rate [Bilateral Pedal (Dorsalis Pedis)] 73 72 Respiratory Rate 18 20 Blood Pressure 64/39 L 99/52 L 103/64 Pulse Oximetry 97 97 Oxygen Delivery Oxygen Flow Rate 07/06/24 05:45 07/06/24 06:00 07/06/24 06:00 Temperature Pulse Rate 73 73 73 Pulse Rate [Bilateral Pedal (Dorsalis Pedis)] Respiratory Rate 25 H Blood Pressure 101/59 L 65/42 L Pulse Oximetry 97 Oxygen Delivery Oxygen Flow Rate 07/06/24 06:17 07/06/24 08:00 07/06/24 08:00 Temperature 36.3 C L Pulse Rate 72 72 Pulse Rate [Bilateral Pedal (Dorsalis Pedis)] 72 72 Respiratory Rate 18 23 H Blood Pressure 83/63 L 100/60 Pulse Oximetry 97 97 Oxygen Delivery Oxygen Flow Rate 07/06/24 08:00 07/06/24 08:00 07/06/24 08:00 Temperature Pulse Rate 73 72 Pulse Rate [Bilateral Pedal (Dorsalis Pedis)] Respiratory Rate Blood Pressure 100/60 Pulse Oximetry 95 Oxygen Delivery Nasal Cannula Oxygen Flow Rate 5 07/06/24 10:00 07/06/24 10:00 07/06/24 10:00 Temperature 36.7 C Pulse Rate 72 72 73 Pulse Rate [Bilateral Pedal (Dorsalis Pedis)] Respiratory Rate 24 H Blood Pressure 105/62 97/60 L Pulse Oximetry 95 Oxygen Delivery Oxygen Flow Rate Exam 2 Narrative: General: Pt is alert awake and in NAD Lungs/Chest: Trachea central Clear BS B/L, No significant crackles or wheezing. Patient is mildly tachypneic but not in any respiratory distress Cardiac: RRR. Normal S1 S2. No murmurs Circulation: Pedal pulses are intact and symmetrical. Abdomen: Normal bowel sounds.. Soft. NT. ND. Extremities: No clubbing, cyanosis or edema. Warm : Villa in place Neurologic: Follows commands. Moves all 4 extremities PERRL AO x3 Skin: No Rash Results Labs 07/06/24 09:08 07/06/24 09:08 Labs: Impressions Chest X-Ray 07/05/24 20:29 IMPRESSION: 1. Diffuse lung disease, consistent with pulmonary edema versus pneumonia. Short CBC 07/05/24 07/06/24 Range/Units 20:05 09:08 WBC 14.4 H 12.3 H (4.5-10.0) K/mm3 Hgb 13.1 L 11.8 L (14.0-18.0) g/dL Hct 41.7 L 36.6 L (42.0-52.0) % Plt Count 373 268 (150-375) k/mm3 BMP 07/05/24 07/06/24 20:05 09:08 Sodium 138 139 Potassium 3.4 4.4 Chloride 107 107 Carbon Dioxide 19 L 27 BUN 18 18 Creatinine 0.90 0.70 Glucose 191 H 104 Calcium 9.0 9.2 Cardiac Enzymes 07/05/24 Range/Units 20:05 Troponin I 0.414 H* (0.000-0.034) ng/mL Liver Function 07/05/24 07/06/24 Range/Units 20:05 09:08 Total Bilirubin 0.5 1.0 (0.2-1.3) mg/dL AST 334 H 289 H (17-59) U/L ALT 203 H 184 H (6-50) U/L Alkaline Phosphatase 80 68 (38-126) U/L Albumin 3.5 3.7 (3.5-5.1) g/dL Hospitalist MIPS Advance Care Plan I have confirmed that the patient's Advanced Care Plan is present, code status is documented, or surrogate decision maker is listed in patient medical record.: Yes Medication Reconciliation I have utilized all available resources to obtain, update and review the patients current medications (includes all prescriptions, OTC, herbals, cannabis, and nutritional supplements).: Yes
[2024-07-06] MEDS: MAGNESIUM SULF 2 GM/WATER 50ML 2 GM/50 ML BAG IVPB (12:35)
[2024-07-06 12:54] LABS: Add Urine Microscopic? NO; Appearance Urine Clear (Clear); Bilirubin Urine Negative (Negative); Blood Urine Negative (Negative); Color Urine Yellow (Yellow); Glucose Urine UA Negative (Negative); Ketones Urine Negative (Negative); Leukocyte Esterase Ur Negative LEU/UL (Negative); Nitrate Urine Negative (Negative); Protein Urine Negative (Negative); Specific Grav Ur 1.008 (1.001-1.035); Urobilinogen Urine 0.2 mg/dL (<2.0)
[2024-07-06] MEDS: ATORVASTATIN 40 MG TABLET 80 MG PO (20:37)
[2024-07-06] MEDS: MORPHINE SULFATE (*CRX) 2 MG/ML INJ 1 MG IV PUSH (22:15)
[2024-07-07] VITALS (14 sets, daily range): BP systolic 106–125; BP diastolic 53–65; PULSE 72–86; RESP 20–25; TEMP 36.6–38.3; O2SAT 88–97
[2024-07-07 04:04] LABS: Hematocrit 35.6 % (42.0-52.0); Hemoglobin 12.1 g/dL (14.0-18.0); Mean Corpuscular Volume 88.3 fl (80-100); Mean Platelet Volume 9.9 fl (7.4-10.4); Platelet Count Result 227 k/mm3 (150-375); Red Blood Count 4.03 M/mm3 (4.6-6.20); Red Cell Distribution Width 15.1 % (11.5-14.5); White Blood Count 12.5 K/mm3 (4.5-10.0)
[2024-07-07 04:16] LABS: Alanine Aminotransferase 125 U/L (6-50); Albumin Level 3.8 g/dL (3.5-5.1); Alkaline Phosphatase 64 U/L (38-126); Anion Gap 4 mmol/L (4-12); Aspartate Amino Transferase 158 U/L (17-59); Bilirubin,Total 1.3 mg/dL (0.2-1.3); Blood Urea Nitrogen 19 mg/dL (9-20); Carbon Dioxide 26 mmol/L (22-30); Chloride 104 mmol/L (98-107); Estimated CRCL calculation 66 ml/min; Estimated Glomerular Filt Rate > 60; Glucose 110 mg/dL (65-110); Magnesium 2.2 mg/dL (1.6-2.3); Potassium 3.5 mmol/L (3.4-5.0); Sodium 134 mmol/L (137-145)
[2024-07-07] MEDS: ASPIRIN 81 MG ENTERIC TABLET PO (08:01)
[2024-07-07] MEDS: POTASSIUM CHLORIDE 20 MEQ ER TABLET 40 MEQ PO ×2 (08:02→11:46)
[2024-07-07] MEDS: PANTOPRAZOLE SODIUM IV 40 MG VIAL IV PUSH (08:02)
[2024-07-07] MEDS: TICAGRELOR 90 MG TABLET PO ×2 (08:02→20:26)
[2024-07-07] MEDS: ENOXAPARIN 40 MG/0.4 ML SYRINGE SUB-Q (08:02)
--- NOTE | 2024-07-07 08:45 | WPDINTPN ---
Progress Note: A&P Assessment and Plan (1) ST elevation (STEMI) myocardial infarction: Code(s): I21.3 - ST elevation (STEMI) myocardial infarction of unspecified site Status: Acute Assessment and Plan: Status post balloon angioplasty and stenting of subtotal occlusion of proximal segment of dominant left circumflex artery using a 3.5 x 18 mm Biotronik sirolimus eluting stent with yazidi of JUD 3 flow Aspirin, Brilinta, statin Continue Low-dose Lasix IV for congestive heart failure Start beta-hugo and Zachariah per cardiology Continue telemetry monitoring Echo as below (2) Hypotension: Code(s): I95.9 - Hypotension, unspecified Status: Acute Assessment and Plan: Patient had hypotension postprocedure which has now resolved. Patient was started on Levophed for brief period of time but has been weaned off. Monitor (3) Congestive heart failure: Code(s): I50.9 - Heart failure, unspecified Status: Acute Assessment and Plan: Patient had elevated LVEDP on the cardiac catheterization Chest x-ray also showed mild congestion Echo pending Continue Lasix IV Echo Summary 1. Left ventricular chamber dimension is normal. 2. Left ventricular systolic function is severely reduced, estimated at 20-25%. 3. The inferolateral wall is hypokinetic. The mid inferoseptum and mid anteroseptum is hypokinetic. The mid anterolateral wall, mid inferior wall, mid anterior wall, apex are akinetic. 4. There is no thrombus visualized in the left ventricle. 5. The left ventricular diastolic function is grade I diastolic dysfunction. 6. Right ventricular systolic function is normal. 7. Left atrial chamber dimension is moderately enlarged. 8. There is mild mitral valve regurgitation. 9. There is mild to moderate tricuspid valve regurgitation. (4) Ventricular fibrillation: Code(s): I49.01 - Ventricular fibrillation Status: Acute Assessment and Plan: Status post defibrillation x2 likely secondary to ischemia. Telemetry monitoring Echocardiogram as above Replace low potassium Plan DVT prophylaxis -Lovenox Stress ulcer prophylaxis -PPI Nutrition -diet ordered Code Status - Full Code Incentive spirometry, PT OT Transfer out of ICU today Subjective Date/time seen: 07/07/24 Overnight events reviewed. He feels better today and denies any new complaints. He states his breathing is better. No chest pain shortness a breath cough. All other systems were reviewed and were negative He is down to 2 L by nasal cannula Not on any infusions Good urine output in response to diuretics Other Vitals acceptable Review of Systems Review of Systems: All systems reviewed & are unremarkable except as noted in HPI and below (HPI) Exam Narrative: General: Pt is alert awake and in NAD Lungs/Chest: Trachea central Clear BS B/L, minimal bibasilar crackles, nor wheezing. Cardiac: RRR. Normal S1 S2. No murmurs Circulation: Pedal pulses are intact and symmetrical. Abdomen: Normal bowel sounds.. Soft. NT. ND. Extremities: No clubbing, cyanosis or edema. Warm : Villa in place Neurologic: Follows commands. Moves all 4 extremities PERRL AO x3 Skin: No Rash Objective Data Vital Signs Vital Signs: Vital Signs - 24 hr 07/06/24 10:00 07/06/24 10:00 07/06/24 10:00 Temperature 36.7 C Pulse Rate 72 72 73 Respiratory Rate 24 H Blood Pressure 105/62 97/60 L Pulse Oximetry 95 Oxygen Delivery Oxygen Flow Rate 07/06/24 12:00 07/06/24 12:00 07/06/24 12:00 Temperature 36.4 C Pulse Rate 71 80 Respiratory Rate 27 H Blood Pressure 109/54 L Pulse Oximetry 96 94 Oxygen Delivery Nasal Cannula Oxygen Flow Rate 4 07/06/24 14:00 07/06/24 14:00 07/06/24 16:00 Temperature Pulse Rate 74 76 Respiratory Rate 24 H Blood Pressure 115/65 Pulse Oximetry 95 95 Oxygen Delivery Nasal Cannula Oxygen Flow Rate 3 07/06/24 16:00 07/06/24 16:00 07/06/24 16:54 Temperature 36.7 C Pulse Rate 84 79 Respiratory Rate 25 H Blood Pressure 126/66 Pulse Oximetry 95 92 Oxygen Delivery Nasal Cannula Oxygen Flow Rate 2 07/06/24 18:00 07/06/24 18:00 07/06/24 20:00 Temperature 36.4 C L Pulse Rate 79 79 80 Respiratory Rate 24 H 26 H Blood Pressure 106/71 128/65 Pulse Oximetry 95 92 Oxygen Delivery Oxygen Flow Rate 07/06/24 20:00 07/06/24 22:00 07/07/24 00:00 Temperature 38.3 C H Pulse Rate 83 86 Respiratory Rate 24 H 24 H Blood Pressure 109/58 L 113/54 L Pulse Oximetry 92 93 92 Oxygen Delivery Nasal Cannula Oxygen Flow Rate 2 07/07/24 00:00 07/07/24 02:00 07/07/24 04:00 Temperature 36.9 C Pulse Rate 77 75 Respiratory Rate 22 H 24 H Blood Pressure 119/59 L 108/57 L Pulse Oximetry 92 92 92 Oxygen Delivery Nasal Cannula Oxygen Flow Rate 2 07/07/24 04:00 07/07/24 06:00 07/07/24 08:00 Temperature 36.9 C Pulse Rate 72 82 Respiratory Rate 20 21 H Blood Pressure 118/59 L 117/65 Pulse Oximetry 92 96 93 Oxygen Delivery Nasal Cannula Oxygen Flow Rate 2 Intake/Output Intake/Output: Intake & Output 07/04/24 07/05/24 07/06/24 07/07/24 23:59 23:59 23:59 23:59 Intake Total 2414.1 250 Output Total 1850 725 Balance 564.1 -475 Meds/Results Medications: Active Medications Generic Name Dose Route Start Last Admin Trade Name Freq PRN Reason Stop Dose Admin Aspirin 81 mg 07/06/24 09:00 07/07/24 08:01 Aspirin 81 Mg Enteric Tablet PO 81 mg QAM DOMINIQUE Administration Atorvastatin Calcium 80 mg 07/06/24 21:00 07/06/24 20:37 Atorvastatin 40 Mg Tablet PO 80 mg HS DOMINIQUE Administration Enoxaparin Sodium 40 mg 07/07/24 09:00 07/07/24 08:02 Enoxaparin 40 Mg/0.4 Ml Syringe SUB-Q 40 mg DAILY DOMINIQUE Administration Furosemide 20 mg 07/07/24 09:00 Furosemide Inj 40 Mg/4 Ml Vial IV PUSH 07/07/24 09:01 ONCE ONE Pantoprazole Sodium 40 mg 07/06/24 09:00 07/07/24 08:02 Pantoprazole Sodium Iv 40 Mg Vial IV PUSH 40 mg QAM DOMINIQUE Administration Perflutren Lipid Microsphere 0 ml 07/05/24 21:34 Perflutren Lipid Microspheres 1.5 Ml Vial Diluted To 10 Ml Total Volume IV PUSH 07/08/24 21:34 ONCE PRN adequate visualization Protocol Potassium Chloride 40 meq 07/07/24 12:00 Potassium Chloride 20 Meq Er Tablet PO 07/07/24 12:01 ONCE ONE Ticagrelor 90 mg 07/06/24 09:00 07/07/24 08:02 Ticagrelor 90 Mg Tablet PO 90 mg Q12HR DOMINIQUE Administration Radiology Results: ITS Impressions Chest X-Ray 07/05/24 20:29 IMPRESSION: 1. Diffuse lung disease, consistent with pulmonary edema versus pneumonia. Labs Labs: Laboratory Results - last 24 hr 07/06/24 07/06/24 07/07/24 09:08 12:46 03:49 WBC 12.3 H 12.5 H RBC 4.07 L 4.03 L Hgb 11.8 L 12.1 L Hct 36.6 L 35.6 L MCV 89.9 88.3 MCH 29.0 30.0 MCHC 32.2 34.0 RDW 15.0 H 15.1 H Plt Count 268 227 MPV 9.7 9.9 Immature Gran % (Auto) 0.6 H Neut % (Auto) 85.2 H Lymph % (Auto) 5.5 L [place] % (Auto) 8.6 H Eos % (Auto) 0.0 Baso % (Auto) 0.1 L Lymph # (Auto) 0.68 L [place] # (Auto) 1.1 H Eos # (Auto) 0.0 Baso # (Auto) 0.0 Abs Immat Gran (auto) 0.07 H Absolute Neuts (auto) 10.5 H Absolute Nucleated RBC 0.000 Nucleated RBC % 0.0 Sodium 139 134 L Potassium 4.4 3.5 Chloride 107 104 Carbon Dioxide 27 26 Anion Gap 5 4 BUN 18 19 Creatinine 0.70 0.80 Estim Creat Clear Calc 74 66 Estimated GFR > 60 > 60 Glucose 104 110 Calcium 9.2 9.0 Magnesium 1.8 2.2 Total Bilirubin 1.0 1.3 AST 289 H 158 H ALT 184 H 125 H Alkaline Phosphatase 68 64 NT-Pro-B Natriuret Pep 6690 H Total Protein 6.0 L 6.0 L Albumin 3.7 3.8 TSH (Reflex) 0.470 Urine Color Yellow Urine Appearance Clear Urine pH 5.0 Ur Specific [place] 1.008 Urine Protein Negative Urine Glucose (UA) Negative Urine Ketones Negative Ur Blood (Man) Negative Urine Nitrate Negative Urine Bilirubin Negative Urine Urobilinogen 0.2 Leukocyte Esterase Rfl Negative
[2024-07-07] MEDS: FUROSEMIDE INJ 40 MG/4 ML VIAL 20 MG IV PUSH (09:03)
--- NOTE | 2024-07-07 10:41 | PCFNICU ---
ICU Rounding Note: Pt current nutrition is Heart Healthy. Last recorded weight is 77.1 kg, down from 80.6 kg on admit. Bowel Motility: +BM reported 07/05 Labs Reviewed: Na 134, Hct 35.6, Hgb 12.1 Meds Noted: Lovenox, Lipitor, Protonix. Skin: WNL Additional Notes: Patient remains on heart healthy diet and tolerating. Agree with diet orders. No further nutritional interventions needed at this time. Following daily in ICU rounds.
[2024-07-07] MEDS: ACETAMINOPHEN 325 MG TABLET 650 MG PO (11:45)
--- NOTE | 2024-07-07 12:05 | P.PNCA_ITS ---
Progress Note: A&P Assessment and Plan (1) ST elevation (STEMI) myocardial infarction: Code(s): I21.3 - ST elevation (STEMI) myocardial infarction of unspecified site Status: Acute Assessment and Plan: Cardiac catheterization showed: 1. 95-99% eccentric, thrombotic occlusion of proximal segment of dominant left circumflex artery (infarct related vessel); 30-40% stenosis distal LCX. 2. Severe LV systolic dysfunction with akinesis of mid-distal anterior wall, apical and inferior apical segments; basal segments relatively preserved, ejection fraction about 25-30%; LVEDP 20 mmHg. 3. Primary PCI -IVUS, PTCA / stenting of proximal segment of LCX using a 3.5 x 18 mm Biotronik sirolimus eluting stent with episcopalian of JUD 3 flow. Continue ASA 81mg once daily indefinitely. Continue Brilinta 90mg BID for at least 1 year. Continue high intensity statin. (2) Shock: Code(s): R57.9 - Shock, unspecified Status: Acute Assessment and Plan: Was requiring Levophed overnight on 07/05 to 07/06, off of pressors now. Shock likely cardiogenic in setting of AMI. (3) Acute heart failure with reduced ejection fraction (HFrEF, <= 40%): Code(s): I50.21 - Acute systolic (congestive) heart failure Status: Acute Assessment and Plan: LV angiogram on cardiac catheterization showed severe LV systolic dysfunction with akinesis of mid-distal anterior wall, apical and inferior apical segments; basal segments relatively preserved, ejection fraction about 25-30%; LVEDP 20 mmHg. Echocardiogram shows LVEF 20-25% Continue with intermittent IV Lasix for now. Please monitor strict I/Os. Will start low dose Losartan and Toprol. Advance heart failure GDMT as tolerated. Life Vest ordered. (4) Essential hypertension: Code(s): I10 - Essential (primary) hypertension Status: Acute Assessment and Plan: Will start low dose Losartan and Toprol. Advance heart failure GDMT as tolerated. (5) Hyperlipidemia: Code(s): E78.5 - Hyperlipidemia, unspecified Status: Acute Assessment and Plan: Continue high intensity statin. Plan Transfer to IMU. Recommendations and plan discussed with ICU Physician. Subjective Date/time seen: 07/07/24 12:05 Interval history: Reason for visit: STEMI HPI: 74-year-old male with hypertension, dyslipidemia, rheumatoid arthritis. No known prior cardiac history. Patient was brought to [facility] Emergency Room on 07/05/2024 via EMS with complaints of chest pain that according to patient started about an hour echo. EMS was summoned. He had an episode of loss of consciousness , and based on the report provided by the ER physician, patient had VFib arrest and was resuscitated as per ACLS protocol and shocked x1 and was given IV amiodarone. He was brought to the emergency room promptly, and patient had ROSC. He was alert in the emergency room. EKG on my personal interpretation showed underlying atrial fibrillation, ST-elevation in the inferior leads, QRS widening. Patient was brought to the cardiac senior cytogenetics laboratory director emergently. At the time of evaluation in the senior cytogenetics laboratory director, patient had ongoing chest pain. While patient was getting drape, he had 1 more episode of VFib arrest, and was successfully shocked x1 with episcopalian of sinus rhythm. Emergent coronary angiogram showed subtotal thrombotic occlusion of proximal LCX ( left circumflex artery is dominant vessel) - infarct related vessel. He underwent primary PCI / MIRANDA x1 proximal LCX with episcopalian of flow. Date of service 07/06: Feeling well this morning. Was on Levophed overnight, but stopped around 5:45AM. Date of service 07/07: Diuresing well. Still has some shortness of breath, but improving. Tele stable. Review of Systems Review of Systems: All systems reviewed & are unremarkable except as noted in HPI and below (HPI) Exam Const: General: no acute distress HENMT: Mouth: Yes moist mucous membranes Eyes: General: appearance normal, both eyes and all related structures Sclera: sclerae normal Resp: Effort & Inspection: normal respiratory effort Auscultation: clear to auscultation bilaterally Cardio: Rate: regular rate Rhythm: regular rhythm Skin: General skin exam: normal color Neuro: Speech: normal speech Psych: Mental Status: mental status grossly normal Affect: normal affect Objective Data Vital Signs Vital Signs: Vital Signs - 24 hr 07/06/24 14:00 07/06/24 14:00 07/06/24 16:00 Temperature Pulse Rate 74 76 Respiratory Rate 24 H Blood Pressure 115/65 Pulse Oximetry 95 95 Oxygen Delivery Nasal Cannula Oxygen Flow Rate 3 07/06/24 16:00 07/06/24 16:00 07/06/24 16:54 Temperature 36.7 C Pulse Rate 84 79 Respiratory Rate 25 H Blood Pressure 126/66 Pulse Oximetry 95 92 Oxygen Delivery Nasal Cannula Oxygen Flow Rate 2 07/06/24 18:00 07/06/24 18:00 07/06/24 20:00 Temperature 36.4 C L Pulse Rate 79 79 80 Respiratory Rate 24 H 26 H Blood Pressure 106/71 128/65 Pulse Oximetry 95 92 Oxygen Delivery Oxygen Flow Rate 07/06/24 20:00 07/06/24 22:00 07/07/24 00:00 Temperature 38.3 C H Pulse Rate 83 86 Respiratory Rate 24 H 24 H Blood Pressure 109/58 L 113/54 L Pulse Oximetry 92 93 92 Oxygen Delivery Nasal Cannula Oxygen Flow Rate 2 07/07/24 00:00 07/07/24 02:00 07/07/24 04:00 Temperature 36.9 C Pulse Rate 77 75 Respiratory Rate 22 H 24 H Blood Pressure 119/59 L 108/57 L Pulse Oximetry 92 92 92 Oxygen Delivery Nasal Cannula Oxygen Flow Rate 2 07/07/24 04:00 07/07/24 06:00 07/07/24 08:00 Temperature 36.9 C Pulse Rate 72 82 Respiratory Rate 20 21 H Blood Pressure 118/59 L 117/65 Pulse Oximetry 92 96 93 Oxygen Delivery Nasal Cannula Oxygen Flow Rate 2 07/07/24 08:00 07/07/24 10:00 07/07/24 10:00 Temperature Pulse Rate 81 84 84 Respiratory Rate 25 H Blood Pressure 114/53 L Pulse Oximetry 96 Oxygen Delivery Oxygen Flow Rate 07/07/24 11:34 Temperature Pulse Rate Respiratory Rate Blood Pressure Pulse Oximetry Oxygen Delivery Room Air Oxygen Flow Rate Intake/Output Intake/Output: Intake & Output 07/04/24 07/05/24 07/06/24 07/07/24 23:59 23:59 23:59 23:59 Intake Total 2414.1 390 Output Total 1850 1525 Balance 564.1 -1135 Meds/Results Medications: Active Medications Generic Name Dose Route Start Last Admin Trade Name Freq PRN Reason Stop Dose Admin Acetaminophen 650 mg 07/07/24 10:43 07/07/24 11:45 Acetaminophen 325 Mg Tablet PO 650 mg Q4H PRN Administration Pain Rated 5 or Less Hydrocodone Bitart/Acetaminophen 1 tab 07/07/24 10:43 Hydrocodone/Acetaminophen (*Crx) 5-325 Mg Tablet PO Q4H PRN Pain Rated 6 or Greater Aspirin 81 mg 07/06/24 09:00 07/07/24 08:01 Aspirin 81 Mg Enteric Tablet PO 81 mg QAM DOMINIQUE Administration Atorvastatin Calcium 80 mg 07/06/24 21:00 07/06/24 20:37 Atorvastatin 40 Mg Tablet PO 80 mg HS DOMINIQUE Administration Enoxaparin Sodium 40 mg 07/07/24 09:00 07/07/24 08:02 Enoxaparin 40 Mg/0.4 Ml Syringe SUB-Q 40 mg DAILY DOMINIQUE Administration Losartan Potassium 25 mg 07/07/24 12:05 Losartan Potassium 25 Mg Tablet PO DAILY DOMINIQUE Metoprolol Succinate 25 mg 07/07/24 12:05 Metoprolol Succinate Ext Rel 25 Mg Tabcr PO QAM DOMINIQUE Pantoprazole Sodium 40 mg 07/06/24 09:00 07/07/24 08:02 Pantoprazole Sodium Iv 40 Mg Vial IV PUSH 40 mg QAM DOMINIQUE Administration Perflutren Lipid Microsphere 0 ml 07/05/24 21:34 Perflutren Lipid Microspheres 1.5 Ml Vial Diluted To 10 Ml Total Volume IV PUSH 07/08/24 21:34 ONCE PRN adequate visualization Protocol Ticagrelor 90 mg 07/06/24 09:00 07/07/24 08:02 Ticagrelor 90 Mg Tablet PO 90 mg Q12HR DOMINIQUE Administration Radiology Results: ITS Impressions Chest X-Ray 07/05/24 20:29 IMPRESSION: 1. Diffuse lung disease, consistent with pulmonary edema versus pneumonia. Labs Labs: Laboratory Results - last 24 hr 07/06/24 07/07/24 12:46 03:49 WBC 12.5 H RBC 4.03 L Hgb 12.1 L Hct 35.6 L MCV 88.3 MCH 30.0 MCHC 34.0 RDW 15.1 H Plt Count 227 MPV 9.9 Sodium 134 L Potassium 3.5 Chloride 104 Carbon Dioxide 26 Anion Gap 4 BUN 19 Creatinine 0.80 Estim Creat Clear Calc 66 Estimated GFR > 60 Glucose 110 Calcium 9.0 Magnesium 2.2 Total Bilirubin 1.3 AST 158 H ALT 125 H Alkaline Phosphatase 64 Total Protein 6.0 L Albumin 3.8 Urine Color Yellow Urine Appearance Clear Urine pH 5.0 Ur Specific [place] 1.008 Urine Protein Negative Urine Glucose (UA) Negative Urine Ketones Negative Ur Blood (Man) Negative Urine Nitrate Negative Urine Bilirubin Negative Urine Urobilinogen 0.2 Leukocyte Esterase Rfl Negative
[2024-07-07] MEDS: METOPROLOL SUCCINATE EXT REL 25 MG TABCR PO (12:11)
[2024-07-07] MEDS: LOSARTAN POTASSIUM 25 MG TABLET PO (12:11)
[2024-07-07] MEDS: ATORVASTATIN 40 MG TABLET 80 MG PO (20:26)
[2024-07-08] VITALS (14 sets, daily range): BP systolic 105–120; BP diastolic 49–68; PULSE 67–100; RESP 16–24; TEMP 36.6–37.1; O2SAT 93–96
[2024-07-08 04:15] LABS: Hematocrit 34.3 % (42.0-52.0); Hemoglobin 11.6 g/dL (14.0-18.0); Mean Corpuscular HGB Conc 33.8 g/dl (32-36); Mean Corpuscular Hemoglobin 29.8 pg (26-34); Mean Corpuscular Volume 88.2 fl (80-100); Mean Platelet Volume 10.2 fl (7.4-10.4); Platelet Count Result 194 k/mm3 (150-375); Red Blood Count 3.89 M/mm3 (4.6-6.20); Red Cell Distribution Width 15.1 % (11.5-14.5); White Blood Count 8.6 K/mm3 (4.5-10.0)
[2024-07-08 04:28] LABS: Alanine Aminotransferase 81 U/L (6-50); Albumin Level 3.3 g/dL (3.5-5.1); Alkaline Phosphatase 62 U/L (38-126); Anion Gap 4 mmol/L (4-12); Aspartate Amino Transferase 60 U/L (17-59); Bilirubin,Total 1.2 mg/dL (0.2-1.3); Blood Urea Nitrogen 17 mg/dL (9-20); Calcium 8.8 mg/dL (8.4-10.2); Carbon Dioxide 26 mmol/L (22-30); Chloride 105 mmol/L (98-107); Estimated CRCL calculation 74 ml/min; Estimated Glomerular Filt Rate > 60; Glucose 102 mg/dL (65-110); Magnesium 2.1 mg/dL (1.6-2.3); Sodium 135 mmol/L (137-145)
[2024-07-08] MEDS: METOPROLOL SUCCINATE EXT REL 25 MG TABCR PO (09:01)
[2024-07-08] MEDS: ASPIRIN 81 MG ENTERIC TABLET PO (09:01)
[2024-07-08] MEDS: PANTOPRAZOLE SODIUM IV 40 MG VIAL IV PUSH (09:01)
[2024-07-08] MEDS: ENOXAPARIN 40 MG/0.4 ML SYRINGE SUB-Q (09:02)
[2024-07-08] MEDS: TICAGRELOR 90 MG TABLET PO ×2 (09:02→20:36)
[2024-07-08] MEDS: LOSARTAN POTASSIUM 25 MG TABLET PO (09:02)
--- NOTE | 2024-07-08 10:48 | PM.PNCARD ---
Progress Note: A&P Assessment and Plan (1) Congestive heart failure: Code(s): I50.9 - Heart failure, unspecified Status: Acute (2) Acute heart failure with reduced ejection fraction (HFrEF, <= 40%): Code(s): I50.21 - Acute systolic (congestive) heart failure Status: Acute (3) ST elevation (STEMI) myocardial infarction: Code(s): I21.3 - ST elevation (STEMI) myocardial infarction of unspecified site Status: Acute (4) Shock: Code(s): R57.9 - Shock, unspecified Status: Acute Plan 74-year-old man with hypertension, hyperlipidemia, and rheumatoid arthritis presented with chest pain found to have inferior ST-elevation ID status post PCI to proximal left circumflex Cardiogenic shock -weaned off Levophed on Friday Inferior ST-elevation ID status post PCI to proximal left circ -continue aspirin 81 mg p.o. indefinitely -ticagrelor 90 mg p.o. b.i.d. with meds to bed -atorvastatin 80 mg every evening Acute systolic heart failure -likely ischemic in origin -was weaned off supplemental oxygen this morning is still having some tachypnea -recommend Lasix 40 mg IV and re-evaluate his breathing status tomorrow -on losartan 25 mg p.o. daily and metoprolol succinate 25 mg p.o. daily Hyperlipidemia -atorvastatin 80 mg every evening Can be transferred out of ICU to IMU with likely discharge tomorrow Subjective Date/time seen: 07/08/24 10:48 Interval history: Has some pleuritic chest pain. With some hemoptysis Review of Systems Cardiovascular: Cardiovascular: Reports as per HPI Respiratory: Respiratory: Reports as per HPI Exam Const: General: comfortable HENMT: Mouth: Yes moist mucous membranes Eyes: EOM: EOMs intact bilaterally Neck: Neck: no JVD Resp: Effort & Inspection: normal respiratory effort Auscultation: rales Cardio: Rate: regular rate Rhythm: regular rhythm GI: GI Palp: Yes Soft to palpation Extrem: General: no edema Psych: Affect: normal affect Objective Data Vital Signs Vital Signs: Vital Signs - 24 hr 07/07/24 11:34 07/07/24 12:00 07/07/24 12:00 Temperature 36.9 C Pulse Rate 80 77 Respiratory Rate 24 H Blood Pressure 125/60 Pulse Oximetry 97 Oxygen Delivery Room Air Oxygen Flow Rate 07/07/24 12:11 07/07/24 14:00 07/07/24 15:24 Temperature Pulse Rate 85 76 Respiratory Rate Blood Pressure Pulse Oximetry Oxygen Delivery Room Air Oxygen Flow Rate 07/07/24 16:00 07/07/24 16:00 07/07/24 16:00 Temperature 36.6 C 37.0 C Pulse Rate 74 77 77 Respiratory Rate 20 22 H Blood Pressure 106/60 106/60 Pulse Oximetry 96 96 Oxygen Delivery Oxygen Flow Rate 07/07/24 18:00 07/07/24 20:00 07/07/24 20:00 Temperature 37.1 C Pulse Rate 82 77 77 Respiratory Rate 21 H Blood Pressure 116/63 Pulse Oximetry 91 Oxygen Delivery Oxygen Flow Rate 07/07/24 20:00 07/07/24 22:00 07/07/24 23:30 Temperature Pulse Rate 77 83 Respiratory Rate 21 H Blood Pressure Pulse Oximetry 91 88 L Oxygen Delivery Room Air Nasal Cannula Oxygen Flow Rate 2 07/08/24 00:00 07/08/24 00:00 07/08/24 00:00 Temperature 36.7 C Pulse Rate 73 77 77 Respiratory Rate 16 16 Blood Pressure 113/61 Pulse Oximetry 96 95 Oxygen Delivery Nasal Cannula Oxygen Flow Rate 2 07/08/24 02:00 07/08/24 04:00 07/08/24 04:00 Temperature 36.6 C Pulse Rate 73 76 77 Respiratory Rate 22 H 16 Blood Pressure 114/62 Pulse Oximetry 93 93 Oxygen Delivery Nasal Cannula Oxygen Flow Rate 2 07/08/24 04:00 07/08/24 06:00 07/08/24 08:00 Temperature Pulse Rate 77 72 Respiratory Rate Blood Pressure Pulse Oximetry 93 Oxygen Delivery Room Air Oxygen Flow Rate 07/08/24 08:00 07/08/24 08:00 07/08/24 09:01 Temperature 36.9 C Pulse Rate 88 80 81 Respiratory Rate 24 H Blood Pressure 111/53 L Pulse Oximetry 93 Oxygen Delivery Oxygen Flow Rate 07/08/24 10:00 Temperature Pulse Rate 71 Respiratory Rate Blood Pressure Pulse Oximetry Oxygen Delivery Oxygen Flow Rate Intake/Output Intake/Output: Intake & Output 07/05/24 07/06/24 07/07/24 07/08/24 23:59 23:59 23:59 23:59 Intake Total 2414.1 1140 550 Output Total 1850 2075 650 Balance 564.1 -935 -100 Meds/Results Medications: Active Medications Generic Name Dose Route Start Last Admin Trade Name Freq PRN Reason Stop Dose Admin Acetaminophen 650 mg 07/07/24 10:43 07/07/24 11:45 Acetaminophen 325 Mg Tablet PO 650 mg Q4H PRN Administration Pain Rated 5 or Less Hydrocodone Bitart/Acetaminophen 1 tab 07/07/24 10:43 Hydrocodone/Acetaminophen (*Crx) 5-325 Mg Tablet PO Q4H PRN Pain Rated 6 or Greater Aspirin 81 mg 07/06/24 09:00 07/08/24 09:01 Aspirin 81 Mg Enteric Tablet PO 81 mg QAM DOMINIQUE Administration Atorvastatin Calcium 80 mg 07/06/24 21:00 07/07/24 20:26 Atorvastatin 40 Mg Tablet PO 80 mg HS DOMINIQUE Administration Enoxaparin Sodium 40 mg 07/07/24 09:00 07/08/24 09:02 Enoxaparin 40 Mg/0.4 Ml Syringe SUB-Q 40 mg DAILY DOMINIQUE Administration Losartan Potassium 25 mg 07/07/24 12:05 07/08/24 09:02 Losartan Potassium 25 Mg Tablet PO 25 mg DAILY DOMINIQUE Administration Metoprolol Succinate 25 mg 07/07/24 12:05 07/08/24 09:01 Metoprolol Succinate Ext Rel 25 Mg Tabcr PO 25 mg QAM DOMINIQUE Administration Pantoprazole Sodium 40 mg 07/06/24 09:00 07/08/24 09:01 Pantoprazole Sodium Iv 40 Mg Vial IV PUSH 40 mg QAM DOMINIQUE Administration Perflutren Lipid Microsphere 0 ml 07/05/24 21:34 Perflutren Lipid Microspheres 1.5 Ml Vial Diluted To 10 Ml Total Volume IV PUSH 07/08/24 21:34 ONCE PRN adequate visualization Protocol Ticagrelor 90 mg 07/06/24 09:00 07/08/24 09:02 Ticagrelor 90 Mg Tablet PO 90 mg Q12HR DOMINIQUE Administration Radiology Results: ITS Impressions Chest X-Ray 07/05/24 20:29 IMPRESSION: 1. Diffuse lung disease, consistent with pulmonary edema versus pneumonia. Labs Labs: Laboratory Results - last 24 hr 07/08/24 03:52 WBC 8.6 RBC 3.89 L Hgb 11.6 L Hct 34.3 L MCV 88.2 MCH 29.8 MCHC 33.8 RDW 15.1 H Plt Count 194 MPV 10.2 Sodium 135 L Potassium 4.0 Chloride 105 Carbon Dioxide 26 Anion Gap 4 BUN 17 Creatinine 0.70 Estim Creat Clear Calc 74 Estimated GFR > 60 Glucose 102 Calcium 8.8 Magnesium 2.1 Total Bilirubin 1.2 AST 60 H ALT 81 H Alkaline Phosphatase 62 Total Protein 6.0 L Albumin 3.3 L
[2024-07-08] MEDS: FUROSEMIDE INJ 40 MG/4 ML VIAL IV PUSH (11:18)
[2024-07-08] MEDS: ACETAMINOPHEN 325 MG TABLET 650 MG PO ×2 (12:37→20:40)
[2024-07-08] MEDS: ATORVASTATIN 40 MG TABLET 80 MG PO (20:37)
[2024-07-09] VITALS (12 sets, daily range): BP systolic 108–124; BP diastolic 52–65; PULSE 65–102; RESP 18–23; TEMP 36.5–36.9; O2SAT 90–98
[2024-07-09 04:09] LABS: Hematocrit 36.8 % (42.0-52.0); Hemoglobin 12.5 g/dL (14.0-18.0); Mean Corpuscular Hemoglobin 29.7 pg (26-34); Mean Corpuscular Volume 87.4 fl (80-100); Mean Platelet Volume 9.9 fl (7.4-10.4); Platelet Count Result 212 k/mm3 (150-375); Red Blood Count 4.21 M/mm3 (4.6-6.20); Red Cell Distribution Width 14.8 % (11.5-14.5); White Blood Count 7.9 K/mm3 (4.5-10.0)
[2024-07-09 04:19] LABS: Alanine Aminotransferase 62 U/L (6-50); Albumin Level 3.5 g/dL (3.5-5.1); Alkaline Phosphatase 63 U/L (38-126); Anion Gap 3 mmol/L (4-12); Aspartate Amino Transferase 39 U/L (17-59); Bilirubin,Total 1.5 mg/dL (0.2-1.3); Blood Urea Nitrogen 18 mg/dL (9-20); Calcium 9.3 mg/dL (8.4-10.2); Carbon Dioxide 28 mmol/L (22-30); Chloride 104 mmol/L (98-107); Estimated CRCL calculation 66 ml/min; Estimated Glomerular Filt Rate > 60; Glucose 91 mg/dL (65-110); Magnesium 1.9 mg/dL (1.6-2.3); Potassium 3.3 mmol/L (3.4-5.0); Sodium 135 mmol/L (137-145)
[2024-07-09] MEDS: HYDROcodone/acetaminophen (*CRX) 5-325 MG TABLET 1 TAB PO (06:17)
[2024-07-09] MEDS: TICAGRELOR 90 MG TABLET PO (08:39)
[2024-07-09] MEDS: ASPIRIN 81 MG ENTERIC TABLET PO (08:39)
[2024-07-09] MEDS: LOSARTAN POTASSIUM 25 MG TABLET PO (08:39)
[2024-07-09] MEDS: METOPROLOL SUCCINATE EXT REL 25 MG TABCR PO (08:40)
[2024-07-09] MEDS: ENOXAPARIN 40 MG/0.4 ML SYRINGE SUB-Q (08:40)
[2024-07-09] MEDS: PANTOPRAZOLE SODIUM IV 40 MG VIAL IV PUSH (08:40)
[2024-07-09] MEDS: POTASSIUM CHLORIDE 20 MEQ ER TABLET 40 MEQ PO (12:29)
--- NOTE | 2024-07-09 12:53 | IVDEFINITY ---
Prior to administration of IV Definity the patient was educated on the risks and benefits of the imaging enhancing agent including potential adverse side effects. The patient verbalized understanding. Allergies were verified. No exclusion criteria were identified and at least one of the following inclusion criteria were met: 1) physician request, 2) patient technically difficult to image (per the [place] [employer] Echocardi[employer] guidelines of two or more segments not discernable within the apical view), or 3) questionable left ventricular function. ?
--- NOTE | 2024-07-09 13:55 | P.DS_ITS ---
DS: Admitting Diagnosis Discharge Date 07/09/2024 Admitting Diagnosis stemi DS: Discharge Diagnosis Discharge Diagnosis (1) Congestive heart failure: Code(s): I50.9 - Heart failure, unspecified Status: Acute (2) Acute heart failure with reduced ejection fraction (HFrEF, <= 40%): Code(s): I50.21 - Acute systolic (congestive) heart failure Status: Acute (3) ST elevation (STEMI) myocardial infarction: Code(s): I21.3 - ST elevation (STEMI) myocardial infarction of unspecified site Status: Acute (4) Shock: Code(s): R57.9 - Shock, unspecified Status: Acute Plan 74-year-old man with hypertension, hyperlipidemia, and rheumatoid arthritis presented with chest pain found to have inferior ST-elevation CA status post PCI to proximal left circumflex Cardiogenic shock -weaned off Levophed on Friday Inferior ST-elevation CA status post PCI to proximal left circ -continue aspirin 81 mg p.o. indefinitely -ticagrelor 90 mg p.o. b.i.d. with meds to bed -atorvastatin 80 mg every evening Acute systolic heart failure -likely ischemic in origin -was weaned off supplemental oxygen, doing well on room air -on losartan 25 mg p.o. daily and metoprolol succinate 25 mg p.o. daily -LifeVest in place -Can optimize GDMT as outpatient Hyperlipidemia -atorvastatin 80 mg every evening OK for discharge today. DS: Summary Time Spent with Patient Time attestation: Total time spent providing and/or coordinating discharge services: Exam Const: General: comfortable and no acute distress HENMT: Mouth: Yes moist mucous membranes Eyes: General: appearance normal, both eyes and all related structures Sclera: sclerae normal EOM: EOMs intact bilaterally Neck: Neck: no JVD Resp: Effort & Inspection: normal respiratory effort Auscultation: clear to auscultation bilaterally and rales Other: On supplemental oxygen Cardio: Rate: regular rate Rhythm: regular rhythm Heart sounds: no murmurs Skin: General skin exam: normal color Neuro: Speech: normal speech Extrem: General: no edema Psych: Mental Status: mental status grossly normal Affect: normal affect DS: Data Data Completed and Pending Labs on day of discharge: Labs from last 24 hours 07/09/24 03:35 WBC 7.9 RBC 4.21 L Hgb 12.5 L Hct 36.8 L MCV 87.4 MCH 29.7 MCHC 34.0 RDW 14.8 H Plt Count 212 MPV 9.9 Sodium 135 L Potassium 3.3 L Chloride 104 Carbon Dioxide 28 Anion Gap 3 L BUN 18 Creatinine 0.80 Estim Creat Clear Calc 66 Estimated GFR > 60 Glucose 91 Calcium 9.3 Magnesium 1.9 Total Bilirubin 1.5 H AST 39 ALT 62 H Alkaline Phosphatase 63 Total Protein 6.0 L Albumin 3.5 Discharge Plan Discharge Discharging Clinician: Kimberley Villatoro Patient Disposition: Home, Self-Care Activity: may shower Diet: heart healthy Wound Care Instructions: incision open to air Discharge Instructions: [facility] [address] [place] [address] DISCHARGE INSTRUCTIONS - POST PCI Activity 1. No driving for 24 hours 2. No lifting, pushing or pulling more than 10 pounds for 1 week. 3. No strenuous exercise or activity (including sexual activity) until you are released to do so. 4. May shower but no tub baths or swimming pool for 1 week. Avoid commercial hot tubs. They are too hot. Medications DO NOT STOP YOUR MEDICATIONS ONLY YOUR FOUNDER CHAIRMAN AND CHIEF CREATIVE OFFICER CAN STOP THE FOLLOWING MEDICATIONS - PLEASE CALL THE OFFICE WITH QUESTIONS. *Aspirin *Ticagrelor (Brilinta) *Atorvastatin *Lisinopril or ARB *Metoprolol tartrate or succinate *Clopidogrel (Plavix) *Prasugrel (Effient) Important Reminders 1. Keep your stent card in your wallet at all times 2. Follow a heart healthy diet paying extra attention to cholesterol and fats. 3. Stay hydrated. 4. If you have chest pain unrelieved by rest or nitroglycerin (if prescribed) call 911 immediately. 5. If you miss one dose of Brilinta (if prescribed) take a tablet at the next time due. If you miss 2 doses take a tablet when you remember and resume at the next time due. *For any other questions please call the office at [phone]. Office hours are 8AM 4:30PM Friday through Friday. Patient Instructions: Antibiotic Form, Heart Healthy Diet (DC), Pain Management (DC) Patient Language: Spanish Stand Alone Forms: General Discharge Information Follow-up/Referrals: Mateus Mayberry MD [Physician] - (OFFICE WILL CALL WITH APPOINTMENT INFORMATION) Discharge Medications: New Brilinta 90 mg Tablet 90 mg PO Q12HR 30 Days Qty: 60 11RF atorvastatin 40 mg Tablet 80 mg PO HS 30 Days Qty: 60 11RF losartan 25 mg Tablet 25 mg PO DAILY 30 Days Qty: 30 3RF metoprolol succinate [Toprol XL] 25 mg Tablet Extended Release 24 Hr 25 mg PO QAM 30 Days Qty: 30 3RF aspirin 81 mg Tablet,Delayed Release (Dr/Ec) 81 mg PO QAM Qty: 30 11RF Continued hydroxychloroquine 200 mg tablet 200 mg PO BID omeprazole 20 mg tablet,delayed release (DR/EC) 20 mg PO DAILY [id number] Tablet 1 tablet PO DAILY ferrous sulfate 324 mg (65 mg iron) tablet,delayed release (DR/EC) 324 mg PO BID prevagen 50 mcg PO DAILY Rx Instructions: 50mcg Vit D; 10mg apoaequorin-1 capsule daily folic acid 1 mg Tablet 1 mg PO DAILY cholecalciferol (vitamin D3) 50 mcg (2,000 unit) Capsule 50 mcg PO DAILY prednisone 5 mg tablet 5 mg PO TID PRN (Reason: arthritis) Centrum Silver Men [phone] mcg Tablet 1 tablet PO DAILY Discontinued diclofenac potassium 25 mg capsule 75 mg PO BID diclofenac sodium 75 mg tablet,delayed release (DR/EC) 75 mg PO Q12H No Action methotrexate sodium 2.5 mg tablet 15 mg PO WEEKLY Rx Instructions: 6 tablets weekly, takes on Sundays atorvastatin 10 mg tablet 20 mg PO HS atorvastatin 20 mg tablet 20 mg PO QPM Date of admission: 07/05/24 21:18 Primary Care Provider: Corina*Kanu Admitting Provider: Mateus Mayberry Attending physician on admission: Mateus Mayberry Condition: Stable
== END 2024-07-09 15:17 | disposition home or self-care (01) | DRG 321 ==
LOC: ANHED 19:54 → ANHICU 21:25
PROVIDERS: Internal Medicine; Admitting Provider Internal Medicine Cardiovascular Disease; Emergency Provider Emergency Medicine; PCP Internal Medicine; Visit Provider Nurse Practitioner
PROC: 4A023N7 Measurement of Cardiac Sampling and Pressure, Left Heart, Percutaneous Approach (ICD-10-PCS; CPT 93452; principal; 2024-07-05 19:55)
PROC: 027034Z Dilation of Coronary Artery, One Artery with Drug-eluting Intraluminal Device, Percutaneous Approach (ICD-10-PCS; 2024-07-05 19:55)
PROC: 027034Z Dilation of Coronary Artery, One Artery with Drug-eluting Intraluminal Device, Percutaneous Approach (ICD-10-PCS; 2024-07-05 19:55)
PROC: 027034Z Dilation of Coronary Artery, One Artery with Drug-eluting Intraluminal Device, Percutaneous Approach (ICD-10-PCS; 2024-07-05 19:55)
DX: I21.19 ST elevation (STEMI) myocardial infarction involving other coronary artery of inferior wall (principal); I49.01 Ventricular fibrillation; R57.0 Cardiogenic shock; I50.21 Acute systolic (congestive) heart failure; I25.10 Atherosclerotic heart disease of native coronary artery without angina pectoris; I95.81 Postprocedural hypotension; I48.91 Unspecified atrial fibrillation; E78.5 Hyperlipidemia, unspecified; Z87.891 Personal history of nicotine dependence; Z85.72 Personal history of non-Hodgkin lymphomas; Z85.46 Personal history of malignant neoplasm of prostate
CPT/HCPCS: 36415; 71045; 80053; 80061; 81003; 83605; 83735; 83880; 84443; 84484; 85025; 85027; 85610; 85730; 86850; 86900; 86901; 87641; 92978; 93005; 93458; 96374; 96375; 97161; 97165; 97530; 97535; 99291; A9270; C1725; C1753; C1760; C1769; C1874; C1887; C1894; C8929; C9606; G0269; J0583; J1644; J1650; J1940; J2003; J2250; J2270; J2305; J2470; J3010; J3250; J3475; J7030; J7040; P9047; Q9957

== ENCOUNTER 2024-09-19 15:57 | Emergency (ER) | payer MEDICARE, SELFPAY ==
[2024-09-19 15:58] VITALS: BP 103/45; PULSE 87; RESP 16; TEMP 36.9; O2SAT 98
[2024-09-19 16:18] VITALS: RESP 17; O2SAT 98
[2024-09-19 16:23] VITALS: BP 109/51; PULSE 91; RESP 20; O2SAT 97
[2024-09-19 16:56] LABS: Basophils Percent Auto 0.2 % (0.2-1.2); Eosinophils Percent Auto 0.1 % (0-4.4); Hematocrit 39.5 % (42.0-52.0); Hemoglobin 13.1 g/dL (14.0-18.0); Immature Granulocyte Absolute 0.04 K/mm3 (0.00-0.031); Immature Granulocyte Percent A 0.4 % (0-0.5); Lymphocytes Percent Auto 2.8 % (18.3-44.2); Mean Corpuscular HGB Conc 33.2 g/dl (32-36); Mean Corpuscular Hemoglobin 29.6 pg (26-34); Mean Corpuscular Volume 89.4 fl (80-100); Monocytes Absolute Auto 0.2 K/mm3 (0.1-0.6); Monocytes Percent Auto 2.2 % (2.6-8.5); Neutrophils Percent Auto 94.3 % (45.5-73.1); Platelet Count Result 263 k/mm3 (150-375); Red Blood Count 4.42 M/mm3 (4.6-6.20); Red Cell Distribution Width 14.8 % (11.5-14.5); White Blood Count 10.6 K/mm3 (4.5-10.0)
[2024-09-19 17:03] LABS: Add Urine Microscopic? YES; Appearance Urine Clear (Clear); Bacteria Urine None Seen /hpf; Bilirubin Urine Negative (Negative); Blood Urine Negative (Negative); Color Urine Yellow (Yellow); Glucose Urine UA Negative (Negative); Ketones Urine Trace mg/dL (Negative); Leukocyte Esterase Ur Negative LEU/UL (Negative); Nitrate Urine Negative (Negative); Non Pathogenic Casts 0-2; Protein Urine Trace mg/dL (Negative); RBC Urine 0-2 /hpf (0-2); Specific Grav Ur 1.018 (1.001-1.035); Squamous Epithelial Cell Urine None Seen /hpf (Few); WBC Urine 0-5 /hpf (0-3); pH Urine 5.5 (5.0-9.0)
[2024-09-19 17:04] LABS: Alanine Aminotransferase 18 U/L (6-50); Albumin Level 4.2 g/dL (3.5-5.1); Alkaline Phosphatase 109 U/L (38-126); Anion Gap 9 mmol/L (4-12); Aspartate Amino Transferase 25 U/L (17-59); Bilirubin,Total 0.6 mg/dL (0.2-1.3); Blood Urea Nitrogen 21 mg/dL (9-20); Calcium 9.7 mg/dL (8.4-10.2); Carbon Dioxide 25 mmol/L (22-30); Chloride 102 mmol/L (98-107); Estimated CRCL calculation 63 ml/min; Estimated Glomerular Filt Rate > 60; Glucose 101 mg/dL (65-110); Potassium 4.5 mmol/L (3.4-5.0); Sodium 136 mmol/L (137-145)
[2024-09-19 17:31] LABS: Influenza A QL RT-PCR Negative (Negative); Influenza B QL RT-PCR Negative (Negative); RSV RNA, RT-PCR Negative (Negative); SARS-CoV-2 RNA PCR Negative (Negative)
--- NOTE | 2024-09-19 17:36 | ED.FEVER ---
HPI - Fever General Chief Complaint: Fever Stated Complaint: not feeling good Time Seen by Provider: 09/19/24 16:08 History of Present Illness HPI Narrative: Patient is a 74-year-old male who presents to the ER after having cold shaking chills and having a fever at home. No running others sore throat or productive cough. No diarrhea. No urinary symptoms. Patient had cardiac stent placed a few months ago and has been doing well up to this point. Related Data Home Medications ?Medication ?Instructions ?Recorded ?Confirmed ?Last Taken ?Type cholecalciferol (vitamin D3) 50 50 mcg PO DAILY 12/18/19 09/19/24 07/05/24 History mcg (2,000 unit) capsule folic acid 1 mg tablet 1 mg PO DAILY 12/18/19 09/19/24 07/05/24 History ferrous sulfate 324 mg (65 mg 324 mg PO BID 05/07/24 09/19/24 07/05/24 History iron) tablet,delayed release hydroxychloroquine 200 mg tablet 200 mg PO BID 05/07/24 09/19/24 07/05/24 History methotrexate sodium 2.5 mg tablet 15 mg PO WEEKLY 05/07/24 09/19/24 07/04/24 History kbesvfiwkstl-shzzkiby-svrggk tablet 1 tablet PO DAILY 05/07/24 09/19/24 06/14/24 History omeprazole 20 mg tablet,delayed 20 mg PO DAILY flare ups of 05/07/24 09/19/24 07/05/24 History release arthritis auetzzyf-rl-xnvqp 300 mcg-K 60 1 tablet PO DAILY 06/14/24 09/19/24 07/05/24 History mcg-lycop 600 mcg-lutein 300 mcg tablet (Centrum Silver Men) prednisone 5 mg tablet 5 mg PO TID PRN arthritis 06/14/24 09/19/24 09/19/24 History prevagen 50 mcg PO DAILY 07/05/24 09/19/24 07/05/24 History losartan 25 mg tablet 50 mg PO DAILY 09/19/24 09/19/24 Unknown History metoprolol succinate 25 mg 50 mg PO QAM 09/19/24 09/19/24 Unknown History tablet,extended release 24 hr (Toprol XL) Allergies Allergy/AdvReac Type Severity Reaction Status Date / Time rosuvastatin AdvReac Intermediate IRRITABLE Verified 09/19/24 16:24 simvastatin AdvReac Intermediate IRRITABLE Verified 09/19/24 16:24 pravastatin AdvReac Mild IRRITABLE Verified 09/19/24 16:24 Review of Systems Review of Systems: All systems reviewed & are unremarkable except as noted in HPI and below Constitutional: Constitutional: Reports no additional constitutional complaints Cardiovascular: Cardiovascular: Reports no additional cardiovascular complaints Respiratory: Respiratory: Reports no additional respiratory complaints Gastrointestinal: Gastrointestinal: Reports no additional gastrointestinal complaints Musculoskeletal: Musculoskeletal: Reports no additional musculoskeletal complaints PMFSH Past Medical History Medical History Iron deficiency anemia Marci-Richards tear (11/2019) Rheumatoid arthritis (2014) Prostate cancer (2009) received 38 treatments of external beam radiation Non-Hodgkin lymphoma (05/2019) Hemorrhoids Colon polyps Gastroesophageal reflux disease Hyperlipidemia Essential hypertension Surgical History Surgical History History of esophagogastroduodenoscopy (11/2019) Marci-Richards tear History of cataract surgery Family History Family History (Updated 08/20/24 @ 11:24 by Aimee Nicolas RN) Mother Congestive heart failure Acute myocardial infarction Sibling Malignant neoplasm of colon Hypertension Sibling Hodgkin lymphoma Malignant neoplasm of breast (female) Sibling Malignant lung neoplasm Social History Social History Social History: Surrogate decision maker: Ct Barrios, spouse. Code status: Full code. Smoking packs per day: 1 Smoking cigarettes per day: 20.0 Years smoked: 40 Smoking pack-years: 40.00 Smoking status: Former smoker Tobacco type: cigarettes Alcohol intake: current Drinks per week: 5 Substance use: never Do You Feel Safe in your Home?: Yes Lack of Transportation: No Lack of Food: Never True Current Housing: I Do Not Have Housing Concerned About Future Housing: No Difficulty Paying Gas/Electric Bills: No Difficulty Paying for Meds: No Currently Unemployed: No Education: High School Diploma/GED Difficulty w/ Childcare or Family Care: No Additional living arrangements comments: Lives with spouse in [place]. Additional occupation/education comments: Retired from [employer]. 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 Spiritual care concerns: No Exam Narrative: GENERAL: Well-appearing, well-nourished, and in no acute distress. HEAD: Normocephalic, atraumatic. ENT: Mucous membranes moist. CHEST: Clear to auscultation. No respiratory distress. HEART: Regular rate and rhythm. Normal peripheral pulses. ABDOMEN: Soft, nontender, nondistended. EXTREMITIES: Normal range of motion. No edema. SKIN: Warm, dry, no rash. NEURO: Alert and oriented x3. PSYCH: Normal mood and affect. Course Vital Signs Vital signs: Vital Signs Temperature 98.4 F 09/19/24 15:58 Pulse Rate 87 09/19/24 15:58 Respiratory Rate 16 09/19/24 15:58 Blood Pressure 103/45 L 09/19/24 15:58 Pulse Oximetry 98 09/19/24 15:58 Temperature 98.4 F 09/19/24 15:58 Pulse Rate 91 09/19/24 16:23 Respiratory Rate 20 09/19/24 16:23 Blood Pressure 109/51 L 09/19/24 16:23 Pulse Oximetry 97 09/19/24 16:23 MDM - Fever MDM Narrative Medical decision making narrative: Resting comfortably. Informed of results. No acute abnormalities. Discharge. Lab Data 09/19/24 16:47 09/19/24 16:47 Labs: Lab Results 09/19/24 Range/Units 16:47 WBC 10.6 H (4.5-10.0) K/mm3 RBC 4.42 L (4.6-6.20) M/mm3 Hgb 13.1 L (14.0-18.0) g/dL Hct 39.5 L (42.0-52.0) % MCV 89.4 (80-100) fl MCH 29.6 (26-34) pg MCHC 33.2 (32-36) g/dl RDW 14.8 H (11.5-14.5) % Plt Count 263 (150-375) k/mm3 MPV 10.0 (7.4-10.4) fl Immature Gran % (Auto) 0.4 (0-0.5) % Neut % (Auto) 94.3 H (45.5-73.1) % Lymph % (Auto) 2.8 L (18.3-44.2) % [place] % (Auto) 2.2 L (2.6-8.5) % Eos % (Auto) 0.1 (0-4.4) % Baso % (Auto) 0.2 (0.2-1.2) % Lymph # (Auto) 0.30 L (0.9-3.2) K/mm3 [place] # (Auto) 0.2 (0.1-0.6) K/mm3 Eos # (Auto) 0.0 (0-0.3) K/mm3 Baso # (Auto) 0.0 (0.0-0.1) K/mm3 Abs Immat Gran (auto) 0.04 H (0.00-0.031) K/mm3 Absolute Neuts (auto) 10.0 H (1.3-6.7) K/mm3 Absolute Nucleated RBC 0.000 (0.0-0.012) K/mm3 Nucleated RBC % 0.0 (0.0-0.2) % Sodium 136 L (137-145) mmol/L Potassium 4.5 (3.4-5.0) mmol/L Chloride 102 (98-107) mmol/L Carbon Dioxide 25 (22-30) mmol/L Anion Gap 9 (4-12) mmol/L BUN 21 H (9-20) mg/dL Creatinine 0.83 (0.7-1.3) mg/dL Estim Creat Clear Calc 63 ml/min Estimated GFR > 60 (59 - ) Glucose 101 (65-110) mg/dL Calcium 9.7 (8.4-10.2) mg/dL Total Bilirubin 0.6 (0.2-1.3) mg/dL AST 25 (17-59) U/L ALT 18 (6-50) U/L Alkaline Phosphatase 109 (38-126) U/L Total Protein 7.0 (6.3-8.2) g/dL Albumin 4.2 (3.5-5.1) g/dL Urine Color Yellow (Yellow) Urine Appearance Clear (Clear) Urine pH 5.5 (5.0-9.0) Ur Specific [place] 1.018 (1.001-1.035) Urine Protein Trace (Negative) mg/dL Urine Glucose (UA) Negative (Negative) mg/dL Urine Ketones Trace H (Negative) mg/dL Ur Blood (Man) Negative (Negative) Urine Nitrate Negative (Negative) Urine Bilirubin Negative (Negative) Urine Urobilinogen 1.0 (<2.0) mg/dL Leukocyte Esterase Rfl Negative (Negative) KENIA/UL Urine RBC 0-2 (0-2) /hpf Urine WBC 0-5 (0-3) /hpf Ur Squamous Epith Cells None seen (Few) /hpf Urine Bacteria None seen /hpf Urine Casts 0-2 Influenza A (RT-PCR) Negative (Negative) Influenza B (RT-PCR) Negative (Negative) RSV (RT-PCR) Negative (Negative) SARS-CoV-2 RNA (RT-PCR) Negative (Negative) Imaging Data Radiologist's impression: ITS Impressions Chest X-Ray 09/19/24 17:25 IMPRESSION: No acute cardiopulmonary pathology. Discharge Plan Discharge Clinical Impression: Acute viral syndrome Patient Disposition: Home, Self-Care Condition: Stable Instructions: Viral Syndrome (ED) Additional Instructions: You have a viral illness. If you are getting worse you may go to an urgent care to be retested for influenza but your negative today. Take Tylenol or ibuprofen for fever and body aches. Patient Language: Spanish Prescriptions: No Action methotrexate sodium 2.5 mg tablet 15 mg PO WEEKLY Rx Instructions: 6 tablets weekly, takes on Sundays hydroxychloroquine 200 mg tablet 200 mg PO BID omeprazole 20 mg tablet,delayed release (DR/EC) 20 mg PO DAILY kkkqigvbknqg-bifocqba-babloi Tablet 1 tablet PO DAILY ferrous sulfate 324 mg (65 mg iron) tablet,delayed release (DR/EC) 324 mg PO BID prevagen 50 mcg PO DAILY Rx Instructions: 50mcg Vit D; 10mg apoaequorin-1 capsule daily Brilinta 90 mg Tablet 90 mg PO Q12HR 30 Days Qty: 60 11RF atorvastatin 40 mg Tablet 80 mg PO HS 30 Days Qty: 60 11RF aspirin 81 mg Tablet,Delayed Release (Dr/Ec) 81 mg PO QAM Qty: 30 11RF losartan 25 mg Tablet 50 mg PO DAILY metoprolol succinate [Toprol XL] 25 mg Tablet Extended Release 24 Hr 50 mg PO QAM folic acid 1 mg Tablet 1 mg PO DAILY cholecalciferol (vitamin D3) 50 mcg (2,000 unit) Capsule 50 mcg PO DAILY prednisone 5 mg tablet 5 mg PO TID PRN (Reason: arthritis) Centrum Silver Men [phone] mcg Tablet 1 tablet PO DAILY Follow-up/Referrals: Jose,MD Kanu [Primary Care Provider] - 1 Week
[2024-09-19 18:16] VITALS: BP 106/49; PULSE 87; RESP 19; O2SAT 95
== END 2024-09-19 18:27 | disposition home or self-care (01) ==
PROVIDERS: Emergency Provider Emergency Medicine; PCP Internal Medicine
DX: B34.9 Viral infection, unspecified (principal); Z20.822 Contact with and (suspected) exposure to COVID-19; I10 Essential (primary) hypertension; E78.5 Hyperlipidemia, unspecified; D50.9 Iron deficiency anemia, unspecified; M06.9 Rheumatoid arthritis, unspecified; K21.9 Gastro-esophageal reflux disease without esophagitis; Z95.5 Presence of coronary angioplasty implant and graft; Z85.72 Personal history of non-Hodgkin lymphomas; Z85.46 Personal history of malignant neoplasm of prostate; Z86.0100 Personal history of colon polyps, unspecified; Z87.891 Personal history of nicotine dependence; Z98.49 Cataract extraction status, unspecified eye
CPT/HCPCS: 36415; 71046; 80053; 81001; 85025; 87637; 99283

== ENCOUNTER 2024-11-20 09:33 | Outpatient (CLI) | payer MEDICARE, SELFPAY ==
--- NOTE | ~2024-11-20 | XR_ITS ---
Right Shoulder Technique: AP and axillary views were obtained. Clinical History: Rheumatoid arthritis Findings: No fracture or dislocation is seen. Osseous alignment is anatomic. The glenohumeral joint i s intact. There is minimal AC joint degenerative change. Soft tissues are unremarkable. Impression: Minimal AC joint degenerative change. Reviewed, dictated and finalized at [facility]. Impression: Minimal AC joint degenerative change.
--- NOTE | ~2024-11-20 | XR_ITS ---
Left Shoulder Technique: AP and axillary views were obtained. Clinical History: Rheumatoid arthritis Findings: No fracture or dislocation is seen. Osseous alignment is anatomic. The glenohumeral joint i s intact. There is mild AC joint degenerative change. Soft tissues are unremarkable. Impression: Mild AC joint degenerative change. Reviewed, dictated and finalized at [facility]. Impression: Mild AC joint degenerative change.
--- NOTE | ~2024-11-20 | XR_ITS ---
Right Hand Technique: PA, oblique, and lateral views were obtained. Clinical History: Rheumatoid arthritis Findings: No acute fracture or dislocation is seen. There are mild scattered degenerative changes of interphalangeal joint of the fingers. There is moderate degenerative change of the first CMC joint. P robable joint space narrowing of the second and third MCP joints with suspected small erosions. Proba ble erosion at the scaphoid.. Soft tissues are unremarkable. Impression: Suspected mild erosive change at the second and third metacarpal heads and scaphoid, with joint space narrowing of the second and third MCP joints. Findings could be in keeping with rheumatoid arthritis . Minimal degenerative changes of the interphalangeal joints and moderate degenerative change of the fi rst CMC joint. Reviewed, dictated and finalized at location M. Impression: Suspected mild erosive change at the second and third metacarpal heads and scap hoid, with joint space narrowing of the second and third MCP joints. Findings c ould be in keeping with rheumatoid arthritis. Minimal degenerative changes of the interphalangeal joints and moderate degener ative change of the first CMC joint.
--- NOTE | ~2024-11-20 | XR_ITS ---
Left Hand Technique: PA and lateral views were obtained. Clinical History: Rheumatoid arthritis Findings: No acute fracture or dislocation is seen. Osseous alignment is anatomic. There's mild degen erative change of the first CMC joint. There is mild degenerative change of the triscaphe joint. No d efinite erosive change seen.. Soft tissues are unremarkable. Impression: Mild degenerative changes. No definite erosive arthropathy. Reviewed, dictated and finalized at location M. Impression: Mild degenerative changes. No definite erosive arthropathy.
--- NOTE | ~2024-11-20 | XR_ITS ---
Clinical Indication: Rheumatoid arthritis PA and lateral views of the chest: Comparison: 09/19/2024 Findings: Questionable mild hazy left basilar airspace disease. Right lung clear. Cardiomediastinal silhouette is within normal limits. Bones and soft tissues are unremarkable. Impression: Questionable hazy left basilar airspace disease. Correlate for lingular pneumonia. Reviewed, dictated and finalized at location . Impression: Questionable hazy left basilar airspace disease. Correlate for lingular pneumon ia.
== END 2024-11-20 09:34 | disposition home or self-care (01) ==
PROVIDERS: PCP Internal Medicine; Visit Provider Physician Assistant
DX: M19.012 Primary osteoarthritis, left shoulder (principal); M19.011 Primary osteoarthritis, right shoulder; M19.042 Primary osteoarthritis, left hand; M19.041 Primary osteoarthritis, right hand
CPT/HCPCS: 71046; 73030; 73120

== ENCOUNTER 2024-12-09 11:15 | Outpatient (RCR) | payer MEDICARE, SELFPAY ==
[2024-08-20 11:46] VITALS: PULSE 63
== END 2024-12-09 11:32 | disposition home or self-care (01) ==
LOC: ANHCPREHAB 11:15
PROVIDERS: PCP Internal Medicine; Visit Provider Internal Medicine Cardiovascular Disease
DX: Z98.61 Coronary angioplasty status (principal)
CPT/HCPCS: 93798

== ENCOUNTER 2025-04-26 11:07 | Outpatient (CLI) | payer MEDICARE, SELFPAY ==
--- NOTE | ~2025-04-26 | DEXA_ITS ---
Bone Density Report Name: MEME NG Age: 75 Sex: Male Ethnicity: White Date of : 1950 Indication: screening for osteoporosis; height loss; history of glucocorticoids; cancer; rheumatoid arthritis; Referring Provider: Kanu Bunch Study: Bone densitometry was performed. Exam Date: April 26, 2025 Accession number: [id number] Bone Density: Region BMD T-score Z-score Classification AP Spine(L1-L4) 1.391 2.7 3.7 Normal Femoral Neck (Left) 0.744 -1.4 -0.1 Osteopenia Total Hip (Left) 0.918 -0.8 0.0 Normal Femoral Neck (Right) 0.769 -1.2 0.1 Osteopenia Total Hip (Right) 0.945 -0.6 0.2 Normal Total Hip Mean 0.931 -0.7 0.1 Normal World Health Organization criteria for BMD impression classify patients as: Normal (T-score at or above -1.0), Osteopenia (T-score between -1.0 and -2.5), or Osteoporosis (T-score at or below -2.5). 10-year Fracture Risk(1): Major Osteoporotic Fracture 10% Hip Fracture 3.0% Reported Risk Factors: [place] (), Neck BMD=0.744, BMI=22.1, glucocorticoids, rheumatoid arthritis (1) FRAX(R) Version 3.08. Fracture probability calculated for an untreated patient. Fracture probability may be lower if the patient has received treatment. Clinical Information Provided by Patient: Has taken Glucocorticoids Has rheumatoid arthritis Has used the following medications: Vitamin D, Calcium Has the following medical conditions: Cancer, prostate cancer, non Hodgkins lymphoma Patient maximum height was 69 No regular weight bearing exercise Drinks caffeinated beverages Impression: The patient has low bone mass, based on the Left Femoral Neck T-score. The patient has an estimated ten-year risk of hip fracture of 3% and an estimated ten-year risk of major fracture of 10%, based on the WHO FRAX algorithm. The patient has risk factors, including: history of glucocorticoid therapy. Discussion: BONE DENSITY IS LOW AT ONE OR MORE SKELETAL SITES. THE PATIENT'S BMD AND CLINICAL RISK FACTORS CONTRIBUTE TO THIS PATIENT'S INCREASED RISK OF FRACTURE. This patient's lowest T-score is low at one or more skeletal sites. It meets the World Health Organization's (WHO) criteria for ?low bone mass? (T-score between -1.0 and -2.5). The patient's 10-year risk of hip fracture as calculated by FRAX exceeds the threshold where pharmacological therapy is recommended by the National Osteoporosis Foundation (NOF). However, all treatment decisions require clinical judgment and consideration of individual patient factors, including patient preferences, comorbidities, previous drug use, risk factors not captured in the FRAX model (e.g., frailty, falls, vitamin D deficiency, increased bone turnover, interval significant decline in bone density) and possible under or overestimation of fracture risk by FRAX. The patient should follow a healthful lifestyle (good nutrition with adequate calcium and vitamin D, and appropriate weight-bearing exercise). Follow-Up: Consider repeating this study in 2 years to reassess this patient's status, or sooner if there is some new clinical indication. Reported by: LUI on 04/26/2025 11:31:00 AM. Reviewed, dictated and finalized at location A.
== END 2025-04-26 11:08 | disposition home or self-care (01) ==
LOC: MICIMG 11:09
PROVIDERS: PCP Emergency Medicine Emergency Medical Services; Visit Provider Internal Medicine
DX: Z13.820 Encounter for screening for osteoporosis (principal); M85.852 Other specified disorders of bone density and structure, left thigh; M85.851 Other specified disorders of bone density and structure, right thigh
CPT/HCPCS: 77080